=== PATIENT | male | born 1930 | race Caucasian/White ===

== ENCOUNTER → 2016-04-27 | Outpatient (CLI) | payer MEDICARE, BC ==
[2016-04-27 10:17] LABS: Appearance,Urine Clear (Clear); Bilirubin,Urine Negative (Negative); Glucose,Urine (UA) Negative (Negative); Ketones,Urine Negative (Negative); Leukocyte Esterase,Urine Negative (Negative); Nitrite,Urine Negative (Negative); PH, Urine 5.5 (5.0-8.0); Protein,Urine Negative (Negative); Specific Gravity,Urine 1.018 (1.001-1.035); UA Billing (MACRO vs. MICRO) CHEM
== END | disposition home or self-care (01) ==
LOC: LAB 09:11
PROVIDERS: ATTEND Internal Medicine Nephrology
DX: N18.3 Chronic kidney disease, stage 3 (moderate) (principal); Z94.0 Kidney transplant status
CPT/HCPCS: 36415; 80158; 81003

== ENCOUNTER 2016-06-20 09:27 | Emergency (ER) | payer MEDICARE, BC ==
[2016-06-20 09:41] VITALS: BP 118/77; PULSE 81; RESP 18; TEMP 97.5
--- NOTE | 2016-06-20 10:01 | ED ---
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 Patient sees Dr. Vegas and has drained on a regular basis. Patient states he had it drained about a week ago and started to refill. Patient states it's now causing him some discomfort from the swelling. Patient is currently on Coumadin for history of stroke. The patient states that they call Dr. Vegas office haven't really been answered seen in due to the fact is causing some pain and pressure they thought that they should come here. The patient has had no other symptoms. The patient states it is much like it is when it typically fills up. Patient states that he would just like vomiting. Patient denies any recent fever, chills, shortness of breath, chest pain, back pain, abdominal pain, nausea vomiting, numbness or tingling, dysuria or hematuria, constipation or diarrhea, headaches or visual changes, or any other current symptoms. - Related Data Home Medications Medication Instructions Recorded Confirmed Famotidine [Pepcid] 20 mg PO DAILY 12/04/13 01/09/16 Simvastatin [Zocor] 10 mg PO Q48H 12/04/13 01/09/16 Allopurinol [Allopurinol] 100 mg PO HS 12/22/14 01/09/16 Ergocalciferol (Vitamin D2) 50,000 unit PO RODNEY 12/22/14 01/09/16 [Drisdol] Timolol 0.5% Ophth Soln [Timoptic 1 drop BOTH EYES DAILY 12/22/14 01/09/16 0.5% Ophth Soln] Warfarin Sodium [Warfarin Sodium] 5 mg PO DAILY 12/22/14 01/09/16 azaTHIOprine [Imuran] 50 mg PO DAILY 02/26/15 01/09/16 cycloSPORINE, MODIFIED [Neoral] 50 mg PO BID 02/26/15 01/09/16 Diltiazem HCl 60 mg PO HS 03/08/15 01/09/16 Calcitriol [Rocaltrol] 0.25 mcg PO DAILY 01/09/16 01/09/16 Previous Rx's Medication Instructions Recorded ALPRAZolam [Xanax] 0.5 mg PO TID PRN #20 tablet 03/23/15 Allergies Allergy/AdvReac Type Severity Reaction Status Date / Time No Known Allergies Allergy Verified 01/22/16 11:16 Review of Systems ROS Statement: Those systems with pertinent positive or pertinent negative responses have been documented in the HPI. ROS Other: All systems not noted in ROS Statement are negative. 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 PT BLIND LEFT EYE. History of Any Multi-Drug Resistant Organisms: None Reported Past Surgical History: Bowel Resection, Tonsillectomy Additional Past Surgical History / Comment(s): KIDNEY TRANSPLANT-1992, COLONOSCOPY, SEEDS IMPLANTED INTO PROSTATE FOR CANCER, SKIN CA REMOVED FROM BACK AND FACE, CATARACT SURG., COLONOSCOPY. Past Anesthesia/Blood Transfusion Reactions: No Reported Reaction Past Psychological History: No Psychological Hx Reported Smoking Status: Former smoker Past Alcohol Use History: None Reported Additional Past Alcohol Use History / Comment(s): SMOKED APPROX 13 YEARS , LESS THAN 1/2 PPD. Past Drug Use History: None Reported - Past Family History Son(s) Family Medical History: Cancer Additional Family Medical History / Comment(s): 2 SONS , ONE HAD LYMPHOMA, AND ONE HAD MULT. MYELOMA Brother(s) Family Medical History: Cancer General Exam General appearance: alert, in no apparent distress Head exam: Present: atraumatic, normocephalic, normal inspection Eye exam: Present: normal appearance, PERRL, EOMI. Absent: scleral icterus, conjunctival injection, periorbital swelling ENT exam: Present: other (Patient appears to have a cyst to the left side of the neck that is swollen. This is fluctuant to touch.) Neck exam: Present: normal inspection. Absent: tenderness, meningismus, lymphadenopathy Respiratory exam: Present: normal lung sounds bilaterally. Absent: respiratory distress, wheezes, rales, rhonchi, stridor Cardiovascular Exam: Present: regular rate, normal rhythm, normal heart sounds. Absent: systolic murmur, diastolic murmur, rubs, gallop, clicks Neurological exam: Present: alert, oriented X3 Psychiatric exam: Present: normal affect, normal mood Skin exam: Present: warm, dry, intact, normal color. Absent: rash Course Vital Signs 06/20/16 09:36 Temperature 97.5 F L Pulse Rate 81 Respiratory 18 Rate Blood Pressure 118/77 O2 Sat by Pulse 98 Oximetry Procedures - Incision & Drainage Consent Obtained: verbal consent Time Out Performed?: Yes Site: neck Anesthetic Used: lidocaine 1% I&D Cleaning Method: Betadine Sterile Field Used?: Yes Needle Aspiration Performed?: Yes Irrigation Performed?: No I&D Drainage Obtained: Blood Culture Obtained?: No Patient Tolerated Procedure: well Medical Decision Making - Medical Decision Making 85-year-old male presents to emergency room chief complaint of left-sided neck brachial cyst that has refilled. This time patient underwent drainage of the area. We discussed continued follow-up with Dr. Vegas and all the patient's family's questions. They stated they understood and agreement with plan. He will be discharged home. Disposition Clinical Impression: Branchial cleft cyst Disposition: HOME SELF-CARE Condition: Stable Instructions: Ganglion Cysts (ED) Additional Instructions: Please use medication as discussed. Please follow up with family doctor if symptoms have not improved over the next two days. Please return to the emergency room if your symptoms increase or worsen or for any other concerns. Referrals: Rich Banuelos MD [Primary Care Provider] - 1-2 days Mega Camarillo DO [Doctor of Osteopathic Medicine] - 1-2 days Time of Disposition: 10:29
== END 2016-06-20 12:25 | disposition home or self-care (01) ==
LOC: EC 09:27
DX: Q18.0 Sinus, fistula and cyst of branchial cleft (principal); I48.91 Unspecified atrial fibrillation; Z79.01 Long term (current) use of anticoagulants; E78.5 Hyperlipidemia, unspecified; I10 Essential (primary) hypertension; Z85.828 Personal history of other malignant neoplasm of skin; Z85.46 Personal history of malignant neoplasm of prostate; Z87.891 Personal history of nicotine dependence; Z79.899 Other long term (current) drug therapy
CPT/HCPCS: 10060; 10160; 99283

== ENCOUNTER 2016-06-22 07:56 | Emergency (ER) | payer MEDICARE, BC ==
[2016-06-22 08:03] VITALS: RESP 18
--- NOTE | 2016-06-22 09:46 | ED ---
General Adult HPI - General Chief complaint: Skin/Abscess/Foreign Body Stated complaint: LUMP ON NECK Time Seen by Provider: 06/22/16 08:57 Source: patient, RN notes reviewed Mode of arrival: ambulatory Limitations: no limitations - History of Present Illness Initial comments: Patient 85-year-old male who presents emergency room today with a chief complaint of swelling to left side of his neck. Does have a history of a brachial cleft cyst. Has had this drained. Most recently just 2 days ago here in the emergency room. Has been following up with ENT specialist for this but is unable to see him the last 2 days. States swelling has returned. States that office did advise him to emergency room to have it reevaluated. He states he does have swelling to left side of the neck which is consistent with this that is had in the past. States he usually was having it drained once a month over the last 8 months but is been more often and more frequent here lately. He denies any other complaints. Patient denies any recent fever, chills, shortness of breath, chest pain, back pain, abdominal pain, nausea or vomiting, numbness or tingling, dysuria or hematuria, constipation or diarrhea, headaches or visual changes, or any other complaints. - Related Data Home Medications Medication Instructions Recorded Confirmed Famotidine [Pepcid] 20 mg PO DAILY 12/04/13 01/09/16 Simvastatin [Zocor] 10 mg PO Q48H 12/04/13 01/09/16 Allopurinol [Allopurinol] 100 mg PO HS 12/22/14 01/09/16 Ergocalciferol (Vitamin D2) 50,000 unit PO RODNEY 12/22/14 01/09/16 [Drisdol] Timolol 0.5% Ophth Soln [Timoptic 1 drop BOTH EYES DAILY 12/22/14 01/09/16 0.5% Ophth Soln] Warfarin Sodium [Warfarin Sodium] 5 mg PO DAILY 12/22/14 01/09/16 azaTHIOprine [Imuran] 50 mg PO DAILY 02/26/15 01/09/16 cycloSPORINE, MODIFIED [Neoral] 50 mg PO BID 02/26/15 01/09/16 Diltiazem HCl 60 mg PO HS 03/08/15 01/09/16 Calcitriol [Rocaltrol] 0.25 mcg PO DAILY 01/09/16 01/09/16 Previous Rx's Medication Instructions Recorded ALPRAZolam [Xanax] 0.5 mg PO TID PRN #20 tablet 03/23/15 Allergies Allergy/AdvReac Type Severity Reaction Status Date / Time No Known Allergies Allergy Verified 06/22/16 08:04 Review of Systems ROS Statement: Those systems with pertinent positive or pertinent negative responses have been documented in the HPI. ROS Other: All systems not noted in ROS Statement are negative. 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 PT BLIND LEFT EYE. History of Any Multi-Drug Resistant Organisms: None Reported Past Surgical History: Bowel Resection, Tonsillectomy Additional Past Surgical History / Comment(s): KIDNEY TRANSPLANT-1992, COLONOSCOPY, SEEDS IMPLANTED INTO PROSTATE FOR CANCER, SKIN CA REMOVED FROM BACK AND FACE, CATARACT SURG., COLONOSCOPY. Past Anesthesia/Blood Transfusion Reactions: No Reported Reaction Past Psychological History: No Psychological Hx Reported Smoking Status: Former smoker Past Alcohol Use History: None Reported Additional Past Alcohol Use History / Comment(s): SMOKED APPROX 13 YEARS , LESS THAN 1/2 PPD. Past Drug Use History: None Reported - Past Family History Son(s) Family Medical History: Cancer Additional Family Medical History / Comment(s): 2 SONS , ONE HAD LYMPHOMA, AND ONE HAD MULT. MYELOMA Brother(s) Family Medical History: Cancer General Exam - General Exam Comments Initial Comments: General: The patient is awake and alert, in no distress, and does not appear acutely ill. Eye: Pupils are equal, round and reactive to light, extra-ocular movements are intact. No nystagmus. There is normal conjunctiva bilaterally. No signs of icterus. Ears, nose, mouth and throat: There are moist mucous membranes and no oral lesions. Neck: The neck is supple, there is no tenderness or JVD. Cardiovascular: There is a regular rate and rhythm. No murmur, rub or gallop is appreciated. Respiratory: Lungs are clear to auscultation, respirations are non-labored, breath sounds are equal. No wheezes, stridor, rales, or rhonchi. Musculoskeletal: Normal ROM, no tenderness. Strength 5/5. Sensation intact. Pulses equal bilaterally 2+. Neurological: A&O x 3. CN II-XII intact, There are no obvious motor or sensory deficits. Coordination appears grossly intact. Speech is normal. Skin: Skin is warm and dry and no rashes or lesions are noted. Moderate swelling to the left side of the neck. Psychiatric: Cooperative, appropriate mood & affect, normal judgment. Limitations: no limitations Course Vital Signs 06/22/16 08:01 Temperature 97.3 F L Pulse Rate 79 Respiratory 18 Rate Blood Pressure 134/83 O2 Sat by Pulse 97 Oximetry Procedures - Procedures Initial comment: Patient's left side of the neck was prepped and cleaned with Betadine. Area was necessary locally with 1% lidocaine without epinephrine. An 18-gauge needle was used to make aspiration and approximately 80 mL of yellow fluid was removed. Patient tolerated the procedure well. Pressure was held afterwards to hopefully help reduce refilling. Medical Decision Making - Medical Decision Making Case discussed in detail with attending physician Dr. oglesby. Patient's cyst was drained here the emergency room. He is advised to follow-up with ENT in the next 1-2 days. Advised return to emergency room symptoms return or increase or worsen. Disposition Clinical Impression: Branchial cleft cyst Disposition: HOME SELF-CARE Condition: Good Additional Instructions: Please follow-up with ENT specialist Dr. Vegas over the next 1-2 days. Please return here to the emergency room symptoms return or increase or worsen or for any other concerns. Referrals: Rich Banuelos MD [Primary Care Provider] - 1-2 days Time of Disposition: 09:40
[2016-06-22 10:01] VITALS: BP 152/86; PULSE 74; TEMP 98.3
== END 2016-06-22 10:01 | disposition home or self-care (01) ==
LOC: EC 07:56
DX: Q18.0 Sinus, fistula and cyst of branchial cleft (principal); I48.91 Unspecified atrial fibrillation; E78.5 Hyperlipidemia, unspecified; M10.9 Gout, unspecified; I10 Essential (primary) hypertension; Z87.891 Personal history of nicotine dependence; Z79.01 Long term (current) use of anticoagulants; Z79.899 Other long term (current) drug therapy; Z85.828 Personal history of other malignant neoplasm of skin; Z86.73 Personal history of transient ischemic attack (TIA), and cerebral infarction without residual deficits; Z85.46 Personal history of malignant neoplasm of prostate
CPT/HCPCS: 10160; 99283

== ENCOUNTER → 2016-10-24 | Outpatient (CLI) | payer MEDICARE, BC ==
--- NOTE | 2016-10-24 12:15 | CT ---
EXAMINATION TYPE: CT ChestAbdPelvis wo con DATE OF EXAM: 10/24/2016 COMPARISON: NONE HISTORY: Patient has no complaints at time of study. Follow up for known prostate CA. CT DLP: 1458 mGycm. Automated Exposure Control for Dose Reduction was Utilized. TECHNIQUE: CT scan of the thorax, abdomen and pelvis is performed with oral but without IV contrast. FINDINGS: LUNGS: There are some scattered peripheral and basilar atelectatic change and/or scarring. A few scat tered micronodules are present, for reference right lower lobe 4 x 3 mm on axial image 35. There is 2 mm lateral nodule right lower lobe on axial image 31 for reference. No suspicious greater than 6 mm parenchymal nodule or mass is present bilaterally. There is no pleural effusion or pneumothorax seen bilaterally. The tracheobronchial tree is patent. MEDIASTINUM: There are no greater than 1 cm hilar or mediastinal lymph nodes. No pericardial effusi on is seen. There is fairly severe 3 vessel coronary artery calcification which is noted marker for coronary artery disease. Heart size is within normal limits. There is fairly moderate left atrial dil atation however noted. OTHER: Bilateral gynecomastia is noted. LIVER/GB: Liver is somewhat small in size and heterogeneous in appearance. PANCREAS: Some generalized fat replaced atrophy in the pancreatic head and uncinate process is presen t. SPLEEN: Spleen is mildly enlarged at 13.3 cm on axial image 53 ADRENALS: No significant abnormality is seen. KIDNEYS: There is end-stage renal atrophy bilaterally with small size kidneys and marked cortical thi nning. There are scattered hypodense and hyperdense lesions felt to reflect simple and proteinaceous cysts bilaterally. There is right pelvic transplant without hydronephrosis and improved cortical prom inence. BOWEL: The oral contrast reaches level of the hepatic flexure. There is no suspicious small or large bowel dilatation. There are sutures from prior partial colectomy in the left mid to lower abdomen. Th ere is diverticulosis involving distal transverse as well as left and sigmoid colon without CT eviden ce for acute diverticulitis. GENITAL ORGANS: Numerous brachytherapy seeds are seen in normal size prostate gland. No suspicious ad jacent adenopathy is clearly seen. Some scattered pelvic phleboliths are noted. LYMPH NODES: No greater than 1cm abdominal or pelvic lymph nodes are appreciated. OSSEOUS STRUCTURES: There is multilevel spurring in the thoracolumbar spine. There is facet arthropat hy in lower lumbar levels. There is some narrowing and sclerosis in both sacroiliac joints, right gre ater than left. There is moderate joint space loss in both hip joints. Underlying S-shaped scoliosis is present in the thoracolumbar spine. There are numerous sclerotic foci scattered throughout the osseous structures including pelvis bilate rally and sacrum. There is involvement of the thoracolumbar spine at multiple levels, for reference L 3 lesion on sagittal image 69 and T9 lesion as well as T3 lesion on sagittal image 71. There is right anterior rib lesion on sagittal image 102 OTHER: There is moderate calcified atherosclerotic change of aorta extending into branch vessels. IMPRESSION: 1. Diffuse osseous metastatic disease is present. No additional convincing evidence of metastatic dis ease. 2. Partial colectomy changes with residual mid to distal diverticulosis. 3. Severe coronary artery calcification, clinical correlation for additional cardiac risk factors adv ised to determine need for follow-up. 4. Small sized heterogeneous slightly lobulated liver with mild splenomegaly raises concern for under lying cirrhosis, clinical correlation advised.
--- NOTE | 2016-10-24 14:37 | NM ---
EXAMINATION TYPE: NM bone scan whole body DATE OF EXAM: 10/24/2016 COMPARISON: CT cap earlier today HISTORY: Prostate cancer Delayed whole-body scanning was performed following the injection of 25.9 mCi Tc 99m MDP. Images acq uired 3 hours post injection. Whole body images in anterior posterior projection as well as spot imag es of the thorax abdomen and pelvis multiple projections are obtained FINDINGS: Areas of radiotracer uptake to correspond to the sclerotic foci on CT are not as well seen but felt p resent particularly in the mid to lower thoracic spine. Some involvement right pelvis is identified w hich corresponds to sclerotic lesions at this level. Findings are actually better seen on recent CT v ersus bone scan. Mild increased uptake bilateral knee joints is felt to reflect product of degenerative change. IMPRESSION: Scintigraphic confirmation of metastatic disease to the bone though subtle is present.
== END | disposition home or self-care (01) ==
LOC: RADNMMAIN 09:38
PROVIDERS: ATTEND Urology
DX: C79.51 Secondary malignant neoplasm of bone (principal); C61 Malignant neoplasm of prostate; R16.1 Splenomegaly, not elsewhere classified; K57.30 Diverticulosis of large intestine without perforation or abscess without bleeding
CPT/HCPCS: 71250; 74176; 78306; A9503

== ENCOUNTER → 2017-02-02 | Outpatient (CLI) | payer MEDICARE, BC ==
--- NOTE | 2017-02-02 12:04 | XR ---
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 There are degenerative changes at the AC joint. No focal sclerosis or oste olysis. IMPRESSION: Degenerative changes at the AC joint. No suspicious radiographic changes to the humerus at this time.
== END | disposition home or self-care (01) ==
LOC: RADXRMAIN 10:37
PROVIDERS: ATTEND Internal Medicine Hematology & Oncology
DX: C61 Malignant neoplasm of prostate (principal); C79.51 Secondary malignant neoplasm of bone; F03.90 Unspecified dementia, unspecified severity, without behavioral disturbance, psychotic disturbance, mood disturbance, and anxiety; Z71.3 Dietary counseling and surveillance; Z94.0 Kidney transplant status

== ENCOUNTER 2017-03-07 14:12 | Inpatient (IN) | payer MEDICARE, BC ==
[2017-03-07] MEDS ORDERED: RX INFO: IV CONTRAST WAS GIVEN 1 EACH MISC MISCELLANE PRN (14:32)
[2017-03-07] MEDS ORDERED: SODIUM CHLORIDE 0.9% 1,000 ML IV STA (14:32)
[2017-03-07] MEDS ORDERED: SODIUM CHLORIDE 0.9% 500 ML IV STA (14:32)
--- NOTE | 2017-03-07 14:42 | ED ---
General Adult HPI - General Chief complaint: Altered Mental Status Stated complaint: Altered mental status Time Seen by Provider: 03/07/17 14:25 Source: family, EMS, RN notes reviewed, old records reviewed Mode of arrival: EMS Limitations: altered mental status, physical limitation - History of Present Illness Initial comments: This is an 86-year-old male the ER for evaluation of altered mental state. Patient presents for expressive aphasia, difficulty with talking, episode of shaking and tremor. Patient does have medical history significant for atrial fibrillation is on warfarin anticoagulation. Patient and family deny recent fever no nausea vomiting diarrhea. Patient has and denies any rash or headache. states patient came in about an hour prior to arrival from lunch and patient began to have some weakness and then difficulty with his speech. Patient nonsensical. Patient does have underlying history of dementia - Related Data Home Medications Medication Instructions Recorded Confirmed Ergocalciferol (Vitamin D2) 50,000 unit PO Q30D 12/22/14 03/07/17 [Drisdol] Timolol 0.5% Ophth Soln [Timoptic 1 drop BOTH EYES DAILY 12/22/14 03/07/17 0.5% Ophth Soln] Warfarin Sodium [Warfarin Sodium] 5 mg PO MOWEFR 12/22/14 03/07/17 azaTHIOprine [Imuran] 50 mg PO DAILY 02/26/15 03/07/17 cycloSPORINE, MODIFIED [Neoral] 50 mg PO BID 02/26/15 03/07/17 Diltiazem HCl 60 mg PO HS 03/08/15 03/07/17 Calcitriol [Rocaltrol] 0.25 mcg PO DAILY 01/09/16 03/07/17 Simvastatin [Zocor] 2.5 mg PO Q72H 06/22/16 03/07/17 Warfarin [Coumadin] 2.5 mg PO SUTUTHSA 06/22/16 03/07/17 Donepezil [Aricept] 10 mg PO HS 03/07/17 03/07/17 Famotidine [Pepcid] 20 mg PO DAILY 03/07/17 03/07/17 Allergies Allergy/AdvReac Type Severity Reaction Status Date / Time No Known Allergies Allergy Verified 03/07/17 14:35 Review of Systems ROS Statement: Those systems with pertinent positive or pertinent negative responses have been documented in the HPI. ROS Other: All systems not noted in ROS Statement are negative. 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 PT BLIND LEFT EYE. History of Any Multi-Drug Resistant Organisms: None Reported Past Surgical History: Bowel Resection, Tonsillectomy Additional Past Surgical History / Comment(s): KIDNEY TRANSPLANT-1992, COLONOSCOPY, SEEDS IMPLANTED INTO PROSTATE FOR CANCER, SKIN CA REMOVED FROM BACK AND FACE, CATARACT SURG., COLONOSCOPY. Past Anesthesia/Blood Transfusion Reactions: No Reported Reaction Past Psychological History: No Psychological Hx Reported Smoking Status: Former smoker Past Alcohol Use History: None Reported Past Drug Use History: None Reported - Past Family History Son(s) Family Medical History: Cancer Additional Family Medical History / Comment(s): 2 SONS , ONE HAD LYMPHOMA, AND ONE HAD MULT. MYELOMA Brother(s) Family Medical History: Cancer General Exam - General Exam Comments Initial Comments: Patient with expressive aphasia on exam, Limitations: altered mental status, physical limitation General appearance: alert, in no apparent distress Head exam: Present: atraumatic, normocephalic, normal inspection Eye exam: Present: normal appearance, PERRL, EOMI. Absent: scleral icterus, conjunctival injection, periorbital swelling ENT exam: Present: normal exam, mucous membranes moist Neck exam: Present: normal inspection. Absent: tenderness, meningismus, lymphadenopathy Respiratory exam: Present: normal lung sounds bilaterally. Absent: respiratory distress, wheezes, rales, rhonchi, stridor Cardiovascular Exam: Present: tachycardia, irregular rhythm, normal heart sounds. Absent: systolic murmur, diastolic murmur, rubs, gallop, clicks GI/Abdominal exam: Present: soft, normal bowel sounds. Absent: distended, tenderness, guarding, rebound, rigid Extremities exam: Present: normal inspection, full ROM, normal capillary refill. Absent: tenderness, pedal edema, joint swelling, calf tenderness Back exam: Present: normal inspection Neurological exam: Present: alert, oriented X3, CN II-XII intact Psychiatric exam: Present: normal affect, normal mood Skin exam: Present: warm, dry, intact, normal color. Absent: rash Course Vital Signs 03/07/17 03/07/17 03/07/17 14:12 14:30 14:45 Temperature 98.8 F Pulse Rate 112 H 95 106 H Respiratory 28 H 18 18 Rate Blood Pressure 174/99 151/75 148/89 O2 Sat by Pulse 100 99 100 Oximetry 03/07/17 03/07/17 03/07/17 15:00 15:16 15:35 Temperature 101.4 F H Pulse Rate 102 H 97 Respiratory 18 16 Rate Blood Pressure 156/93 159/76 O2 Sat by Pulse 100 99 Oximetry 03/07/17 16:54 Temperature 101.0 F H Pulse Rate 93 Respiratory 16 Rate Blood Pressure 144/82 O2 Sat by Pulse 100 Oximetry - Reevaluation(s) Reevaluation #1: 03/07/17 17:48 Patient did have choking episode with attempt to swallow Tylenol Reevaluation #2: 03/07/17 17:48 Patient's symptoms significantly resolved with IV hydration, fever control, no acute symptoms of stroke EKG Findings - EKG Comments: EKG Findings:: EKG shows A. fib with RVR rate 104, QRS 84, QTC 410 Medical Decision Making - Medical Decision Making 86 male the ER for evaluation regards altered mental status, initially severely dehydrated on exam with fever. Patient feeling much better with fever control and IV hydration. Patient does have CT brain but currently no acute symptoms of stroke. TIA, patient to be admitted for neurological evaluation. Patient was also given pelvis while here in the emergency room, patient did choke on pill, likely esophageal stricture, patient is scheduled for GI evaluation - Lab Data Result diagrams: 03/07/17 14:45 03/07/17 14:45 Lab Results 03/07/17 03/07/17 03/07/17 Range/Units 14:45 14:45 14:45 WBC 6.9 (3.8-10.6) k/uL RBC 4.14 L (4.30-5.90) m/uL Hgb 12.7 L (13.0-17.5) gm/dL Hct 39.4 (39.0-53.0) % MCV 95.1 (80.0-100.0) fL MCH 30.7 (25.0-35.0) pg MCHC 32.3 (31.0-37.0) g/dL RDW 13.4 (11.5-15.5) % Plt Count 462 H (150-450) k/uL Neutrophils % 74 % Lymphocytes % 14 % Monocytes % 9 % Eosinophils % 0 % Basophils % 0 % Neutrophils # 5.1 (1.3-7.7) k/uL Lymphocytes # 1.0 (1.0-4.8) k/uL Monocytes # 0.6 (0-1.0) k/uL Eosinophils # 0.0 (0-0.7) k/uL Basophils # 0.0 (0-0.2) k/uL PT (9.0-12.0) sec INR (<1.2) APTT (22.0-30.0) sec Sodium 141 (137-145) mmol/L Potassium 5.3 H (3.5-5.1) mmol/L Chloride 110 H (98-107) mmol/L Carbon Dioxide 23 (22-30) mmol/L Anion Gap 8 mmol/L BUN 27 H (9-20) mg/dL Creatinine 1.20 (0.66-1.25) mg/dL Est GFR (MDRD) Af Amer >60 (>60 ml/min/1.73 sqM) Est GFR (MDRD) Non-Af 58 (>60 ml/min/1.73 sqM) Glucose 140 H (74-99) mg/dL POC Glucose (mg/dL) (75-99) mg/dL POC Glu Cmo & President ID Plasma Lactic Acid Vamsi (0.7-2.0) mmol/L Calcium 10.1 (8.4-10.2) mg/dL Phosphorus (2.5-4.5) mg/dL Magnesium (1.6-2.3) mg/dL Total Bilirubin 1.6 H (0.2-1.3) mg/dL AST 37 (17-59) U/L ALT 23 (21-72) U/L Alkaline Phosphatase 163 H (38-126) U/L Ammonia (<30) umol/L Total Creatine Kinase 26 L (55-170) U/L CK-MB (CK-2) <0.2 (0.0-2.4) ng/mL CK-MB (CK-2) Rel Index Troponin I <0.012 (0.000-0.034) ng/mL Total Protein 6.3 (6.3-8.2) g/dL Albumin 2.8 L (3.5-5.0) g/dL Urine Color Urine Appearance (Clear) Urine pH (5.0-8.0) Ur Specific [place] (1.001-1.035) Urine Protein (Negative) Urine Glucose (UA) (Negative) Urine Ketones (Negative) Urine Blood (Negative) Urine Nitrite (Negative) Urine Bilirubin (Negative) Urine Urobilinogen (<2.0) mg/dL Ur Leukocyte Esterase (Negative) Influenza Type A RNA (Not Detectd) Influenza Type B (PCR) (Not Detectd) 03/07/17 03/07/17 03/07/17 Range/Units 14:45 14:59 14:59 WBC (3.8-10.6) k/uL RBC (4.30-5.90) m/uL Hgb (13.0-17.5) gm/dL Hct (39.0-53.0) % MCV (80.0-100.0) fL MCH (25.0-35.0) pg MCHC (31.0-37.0) g/dL RDW (11.5-15.5) % Plt Count (150-450) k/uL Neutrophils % % Lymphocytes % % Monocytes % % Eosinophils % % Basophils % % Neutrophils # (1.3-7.7) k/uL Lymphocytes # (1.0-4.8) k/uL Monocytes # (0-1.0) k/uL Eosinophils # (0-0.7) k/uL Basophils # (0-0.2) k/uL PT 41.7 H (9.0-12.0) sec INR 4.6 H (<1.2) APTT 48.4 H (22.0-30.0) sec Sodium (137-145) mmol/L Potassium (3.5-5.1) mmol/L Chloride (98-107) mmol/L Carbon Dioxide (22-30) mmol/L Anion Gap mmol/L BUN (9-20) mg/dL Creatinine (0.66-1.25) mg/dL Est GFR (MDRD) Af Amer (>60 ml/min/1.73 sqM) Est GFR (MDRD) Non-Af (>60 ml/min/1.73 sqM) Glucose (74-99) mg/dL POC Glucose (mg/dL) (75-99) mg/dL POC Glu Cmo & President ID Plasma Lactic Acid Vamsi 2.4 H* (0.7-2.0) mmol/L Calcium (8.4-10.2) mg/dL Phosphorus 1.2 L* (2.5-4.5) mg/dL Magnesium 2.0 (1.6-2.3) mg/dL Total Bilirubin (0.2-1.3) mg/dL AST (17-59) U/L ALT (21-72) U/L Alkaline Phosphatase (38-126) U/L Ammonia <9 (<30) umol/L Total Creatine Kinase (55-170) U/L CK-MB (CK-2) (0.0-2.4) ng/mL CK-MB (CK-2) Rel Index Troponin I (0.000-0.034) ng/mL Total Protein (6.3-8.2) g/dL Albumin (3.5-5.0) g/dL Urine Color Urine Appearance (Clear) Urine pH (5.0-8.0) Ur Specific [place] (1.001-1.035) Urine Protein (Negative) Urine Glucose (UA) (Negative) Urine Ketones (Negative) Urine Blood (Negative) Urine Nitrite (Negative) Urine Bilirubin (Negative) Urine Urobilinogen (<2.0) mg/dL Ur Leukocyte Esterase (Negative) Influenza Type A RNA (Not Detectd) Influenza Type B (PCR) (Not Detectd) 03/07/17 03/07/17 03/07/17 Range/Units 15:01 15:35 15:35 WBC (3.8-10.6) k/uL RBC (4.30-5.90) m/uL Hgb (13.0-17.5) gm/dL Hct (39.0-53.0) % MCV (80.0-100.0) fL MCH (25.0-35.0) pg MCHC (31.0-37.0) g/dL RDW (11.5-15.5) % Plt Count (150-450) k/uL Neutrophils % % Lymphocytes % % Monocytes % % Eosinophils % % Basophils % % Neutrophils # (1.3-7.7) k/uL Lymphocytes # (1.0-4.8) k/uL Monocytes # (0-1.0) k/uL Eosinophils # (0-0.7) k/uL Basophils # (0-0.2) k/uL PT (9.0-12.0) sec INR (<1.2) APTT (22.0-30.0) sec Sodium (137-145) mmol/L Potassium (3.5-5.1) mmol/L Chloride (98-107) mmol/L Carbon Dioxide (22-30) mmol/L Anion Gap mmol/L BUN (9-20) mg/dL Creatinine (0.66-1.25) mg/dL Est GFR (MDRD) Af Amer (>60 ml/min/1.73 sqM) Est GFR (MDRD) Non-Af (>60 ml/min/1.73 sqM) Glucose (74-99) mg/dL POC Glucose (mg/dL) 128 H (75-99) mg/dL POC Glu Cmo & President ID Yg Smith Plasma Lactic Acid Vamsi (0.7-2.0) mmol/L Calcium (8.4-10.2) mg/dL Phosphorus (2.5-4.5) mg/dL Magnesium (1.6-2.3) mg/dL Total Bilirubin (0.2-1.3) mg/dL AST (17-59) U/L ALT (21-72) U/L Alkaline Phosphatase (38-126) U/L Ammonia (<30) umol/L Total Creatine Kinase (55-170) U/L CK-MB (CK-2) (0.0-2.4) ng/mL CK-MB (CK-2) Rel Index Troponin I (0.000-0.034) ng/mL Total Protein (6.3-8.2) g/dL Albumin (3.5-5.0) g/dL Urine Color Yellow Urine Appearance Clear (Clear) Urine pH 7.0 (5.0-8.0) Ur Specific [place] 1.027 (1.001-1.035) Urine Protein Trace H (Negative) Urine Glucose (UA) Negative (Negative) Urine Ketones Negative (Negative) Urine Blood Negative (Negative) Urine Nitrite Negative (Negative) Urine Bilirubin Negative (Negative) Urine Urobilinogen >12.0 (<2.0) mg/dL Ur Leukocyte Esterase Negative (Negative) Influenza Type A RNA Not Detected (Not Detectd) Influenza Type B (PCR) Not Detected (Not Detectd) - Radiology Data Radiology results: report reviewed (CT CT brain does show old right MCV CVA. Patient also has chest x-ray which is negative for acute disease), image reviewed Disposition Clinical Impression: CVA (cerebral infarction), Altered mental status, Fever Disposition: ADMITTED IP TO THIS HOSP Condition: Fair Instructions: Altered Mental Status (ED) Referrals: Rich Banuelos MD [Primary Care Provider] - 1-2 days
[2017-03-07 14:54] LABS: Basophils % (A) 0 %; Eosinophils % (A) 0 %; HCT 39.4 % (39.0-53.0); HGB 12.7 gm/dL (13.0-17.5); Lymphocytes % (A) 14 %; MCH 30.7 pg (25.0-35.0); MCHC 32.3 g/dL (31.0-37.0); MCV 95.1 fL (80.0-100.0); Mean Platelet Volume 7.5; Monocytes # (A) 0.6 k/uL (0-1.0); Monocytes % (A) 9 %; Neutrophils # (A) 5.1 k/uL (1.3-7.7); Neutrophils % (A) 74 %; Platelet Count 462 k/uL (150-450); RBC 4.14 m/uL (4.30-5.90); RDW 13.4 % (11.5-15.5); WBC 6.9 k/uL (3.8-10.6)
[2017-03-07 15:02] LABS: INR 4.6 (<1.2); Partial Thromboplastin Time 48.4 sec (22.0-30.0); Prothrombin Time 41.7 sec (9.0-12.0)
[2017-03-07 15:04] LABS: Glucose,Whole Blood 128 mg/dL (75-99)
--- NOTE | 2017-03-07 15:10 | CT ---
EXAMINATION TYPE: CT brain wo con DATE OF EXAM: 03/07/2017 COMPARISON: CT brain of 2013. HISTORY: Altered mental status. CT DLP: 1045.1 mGycm Automated exposure control for dose reduction was used. TECHNIQUE: CT scan of the head is performed without contrast. FINDINGS: There is new hypoattenuation of the left frontal lobe in comparison to the prior with blur ring of the benoit-white junction, however this is of relatively low attenuation appearing at least sub acute, possibly chronic. Additionally there is widening of the adjacent sulci without mass effect rem ote chronic infarct of the left inferior cerebral hemisphere is unchanged from the prior of 2013. No suspicious extra-axial fluid collection is seen. Old lacunar injury of the anterior limb of the right internal capsule is present. Additional lacunar injury of the right external capsule is also seen. N o blurring of the insular cortex. No hyperdense MCA sign. There is no acute intracranial hemorrhage or midline shift identified. There is diffuse ventricular a nd sulcal prominence consistent with diffuse age-related cerebral atrophy. There is low-attenuation in the periventricular white matter consistent with chronic small vessel ischemic change. The globes are intact. Scant mucosal thickening is seen within the ethmoid sinuses. Remaining visualized parana bakari sinuses are well aerated. IMPRESSION: 1. No acute intracranial hemorrhage or midline shift. 2. Wedge-shaped area of hypoattenuation within the left frontal lobe with volume loss suggests subacu te to chronic ischemia within a branch vessel of the left MCA. 3. Old left cerebellar hemisphere infarct with encephalomalacia. 4. Multiple old lacunar injuries. 5. Diffuse age-related cerebral atrophy and chronic small vessel ischemic change.
[2017-03-07 15:11] LABS: ALT 23 U/L (21-72); AST 37 U/L (17-59); Albumin 2.8 g/dL (3.5-5.0); Alkaline Phosphatase 163 U/L (38-126); Anion Gap 8 mmol/L; Blood Urea Nitrogen 27 mg/dL (9-20); Calcium 10.1 mg/dL (8.4-10.2); Carbon Dioxide 23 mmol/L (22-30); Chloride 110 mmol/L (98-107); Glucose 140 mg/dL (74-99); Potassium 5.3 mmol/L (3.5-5.1); Sodium 141 mmol/L (137-145); Total Bilirubin 1.6 mg/dL (0.2-1.3); Total Protein 6.3 g/dL (6.3-8.2)
[2017-03-07 15:12] LABS: Ammonia <9 umol/L (<30)
[2017-03-07 15:17] LABS: Creatine Kinase 26 U/L (55-170)
[2017-03-07 15:21] LABS: Phosphorus 1.2 mg/dL (2.5-4.5)
[2017-03-07 15:22] LABS: Lactic Acid, Venous 2.4 mmol/L (0.7-2.0)
[2017-03-07] MEDS ORDERED: LIDOCAINE URO-JET JELLY 2% 5 ML KIT URETHRAL ONE (15:23)
[2017-03-07 15:29] LABS: Creatine Kinase MB <0.2 ng/mL (0.0-2.4); Troponin I <0.012 ng/mL (0.000-0.034)
--- NOTE | 2017-03-07 15:38 | CT ---
EXAMINATION TYPE: CT angio head neck DATE OF EXAM: 03/07/2017 HISTORY: Altered mental status. COMPARISON: NONE CT DLP: 1349.3 mGycm. Automated Exposure Control for Dose Reduction was Utilized. TECHNIQUE: CTA scan of the neck is performed with IV Contrast, patient injected with 65ml mL of Visi paque 320 and 50 mL of saline, axial images are obtained, coronal and sagittal reformatted images are reviewed. Three-D reconstructed images are created on an independent workstation and reviewed. FINDINGS: The exam is suboptimal due to patient motion Carotid/Vascular Structures: There is approximately 50% stenosis at the carotid bulb on the right wit h short segment area near complete occlusion of the right internal carotid artery extending over a le ngth of approximately 4 mm with reconstitution distally. This is seen on axial series 9 image 43, cor onal series 10 image 12, and sagittal series 11 image 14. Nonhemodynamically significant calcific ath eromatous plaquing is seen of the left carotid bulb. There is a medial course of both internal caroti d arteries located posterior to the oropharynx. Calcific atheromatous plaquing is seen of the internal carotid arteries in their cavernous and suprac linoid portions. This appears nonhemodynamically significant with less than 50% stenosis, however cindy ges are degraded by motion artifact. The right vertebral artery is diminutive just proximal to the confluence with the left vertebral reji ry to form the basilar artery. [place] appears intact. No gross evidence of aneurysmal outpo uching or dissection. Other: There is a densely sclerotic 1.2 cm vertebral body lesion of T3 with numerous other punctate s clerotic foci of T2 and T4. Other sclerotic foci are seen within the sternal manubrium. Visualized po rtions of the brain are discussed in the CT brain dictation of the same date. IMPRESSION: Exam is limited secondary to uncontrollable patient motion. 1. 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 Approximately 50% stenosis is seen within the right carotid bulb. 2. Nonhemodynamically significant calcific atheromatous plaquing within the left carotid bulb, bilate ral cavernous portions of the internal carotid arteries, and bilateral supraclinoid portions of the i nternal carotid arteries. 3. 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 Bone scan could be perform ed for further evaluation.
[2017-03-07] MEDS: ACETAMINOPHEN TAB 500 MG TAB PO STA ×2 (15:47→16:07)
[2017-03-07 15:51] LABS: Appearance,Urine Clear (Clear); Bilirubin,Urine Negative (Negative); Blood,Urine Negative (Negative); Color,Urine Yellow; Glucose,Urine (UA) Negative (Negative); Ketones,Urine Negative (Negative); Leukocyte Esterase,Urine Negative (Negative); Nitrite,Urine Negative (Negative); Protein,Urine Trace (Negative); Specific Gravity,Urine 1.027 (1.001-1.035); Urobilinogen,Urine >12.0 mg/dL (<2.0)
[2017-03-07] MEDS ORDERED: ONDANSETRON 4 MG/2 ML VIAL IVP STA (15:54)
[2017-03-07] MEDS ORDERED: ACETAMINOPHEN IV (For NPO) 500 MG in EMPTY BAG 1 BAG IVPB STA (15:58)
--- NOTE | 2017-03-07 17:23 | XR ---
EXAMINATION TYPE: XR chest 2V DATE OF EXAM: 03/07/2017 COMPARISON: Prior chest x-ray 03/23/2015 HISTORY: Difficulty breathing and metastatic disease TECHNIQUE: Frontal and lateral views of the chest are obtained. FINDINGS: There is no focal air space opacity, pleural effusion, or pneumothorax seen. The cardiac silhouette size is stable, patient is rotated. Interstitium is increased. The osseous structures sh ows low bone mineral, areas of sclerotic density suggests known metastatic disease. IMPRESSION: No acute cardiopulmonary process. Interstitial lung disease. Metastatic disease.
[2017-03-07] MEDS ORDERED: PIPERACILLIN-TAZOBACTAM 3.375 GM in DEXTROSE/WATER 1 50ML.BAG IVPB STA (17:45)
[2017-03-07] MEDS ORDERED: IPRATROPIUM-ALBUTEROL 3 ML NEB INHALATION PRN (17:45)
[2017-03-07] MEDS ORDERED: hydrALAZINE HCL 20 MG/ML 1 ML VIAL IVP PRN (21:04)
[2017-03-07] MEDS ORDERED: LORazepam 2 MG/ML INJ IV PRN (21:05)
[2017-03-07] MEDS: PIPERACILLIN-TAZOBACTAM 3.375 GM in DEXTROSE/WATER 1 50ML.BAG IVPB SCH (23:56)
[2017-03-08 05:35] LABS: Hypochromasia Slight; MCV 96.9 fL (80.0-100.0)
[2017-03-08 05:37] LABS: VBG PH 7.33 (7.31-7.41)
[2017-03-08 05:47] LABS: Anion Gap 6 mmol/L; Blood Urea Nitrogen 22 mg/dL (9-20); Calcium 8.8 mg/dL (8.4-10.2); Carbon Dioxide 24 mmol/L (22-30); Chloride 112 mmol/L (98-107); Glucose 93 mg/dL (74-99); Sodium 142 mmol/L (137-145)
[2017-03-08 05:58] LABS: HCT 34.8 % (39.0-53.0); HGB 10.9 gm/dL (13.0-17.5); MCH 30.4 pg (25.0-35.0); MCHC 31.4 g/dL (31.0-37.0); Mean Platelet Volume 7.3; Platelet Count 375 k/uL (150-450); RBC 3.59 m/uL (4.30-5.90); RDW 13.6 % (11.5-15.5); WBC 5.9 k/uL (3.8-10.6)
[2017-03-08 06:27] LABS: Band Neutrophils % 1 %; Eosinophils # (M) 0.06 k/uL (0-0.7); Lymphocytes # (M) 0.53 k/uL (1.0-4.8); Monocytes # (M) 0.53 k/uL (0-1.0); Neutrophils % (M) 80 %; Nucleated Red Blood Cells 0 /100 WBC (0-0); Total Cells Counted 100
[2017-03-08 06:29] LABS: Large Platelets Present
[2017-03-08] MEDS: PIPERACILLIN-TAZOBACTAM 3.375 GM in DEXTROSE/WATER 1 50ML.BAG IVPB SCH ×2 (08:05→16:20)
--- NOTE | 2017-03-08 09:07 | P.CNNES ---
History of Present Illness Consult date: 03/08/17 Reason for Consult: Patient admitted with altered mental status and speech changes. History of Present Illness: This patient is a 86-year-old right-handed white male who was brought into the emergency room yesterday for evaluation of altered mental status and increased confusion. According to the ER note she was noted by his is having increase trouble with his speech. She apparently noticed that he was having difficulty getting his words out. He has a known history of review of stroke in the past and the patient has been treated for this. He also has a history of chronic atrial fibrillation for which he is taking Coumadin on a regular basis. Apparently yesterday right after lunch he was noted to have the difficulty with his speech. He had some generalized weakness. He apparently does have history of underlying dementia as well and is taking Aricept on a regular basis. Patient was brought into the emergency room yesterday for further evaluation. He was seen in the ER by Dr. Gonzalez. He was sent for a computed tomography scan of the brain and his CTA angiogram. His NIH stroke scale in the ER was noted to be 1.0. Laboratory testing revealed the patient to have a coagulopathy as his INR was elevated at 4.6. His computed tomography scan of the brain revealed no acute intracranial hemorrhage or midline shift. There is a wedge-shaped area of hypoattenuation in the left frontal lobe suggesting subacute to chronic ischemia. There was evidence of an old left cerebellar infarct. There was some degree of encephalomalacia as well. Patient also underwent a CTA angiogram. The study revealed evidence of occlusion of the right internal carotid artery spanning 4 mm distal to the carotid bifurcation on the right. There was also mention of a sclerotic foci in the upper thoracic spine at T3 level suggesting possibility of osteoblastic metastasis. Bone scan was recommended. The patient is a poor historian. He was able to answer questions this morning fairly well. His speech appears to be clear with no evidence of expressive aphasia. As noted the results of his CT scan of the brain and CT angiogram were reviewed today. We are recommending vascular surgery consultation for further assessment of his CTA angiogram. His evaluation in the emergency room yesterday did not indicate any treatment with TPA as his NIH score was 1.0 and his INR was elevated at 4.6. He was admitted to hospital for a complete stroke evaluation. Patient denies any specific headache symptoms at this time. He denies any focal weakness. He is able to answer all questions appropriately and endurance noted his speech does appear to be clear. No evidence of any aphasia. He was tested for influenza A and B and these were both negative. We have recommended patient to undergo MRI of the brain for further evaluation for acute stroke. As noted we will await any further recommendations from vascular surgery. He may also need a bone scan as noted with sclerotic changes noted at T3 vertebral body. At this time we will continue complete stroke evaluation for the patient. His overall prognosis at this time remains guarded. His INR is still pending this morning but is currently on hold due to the elevated INR yesterday of 4.6. We will continue close monitoring of his condition during this admission. His overall prognosis at this time remains very guarded. Review of Systems Constitutional: Denies chills, Denies fever Eyes: denies blurred vision, denies pain Ears, nose, mouth and throat: Denies headache, Denies sore throat Cardiovascular: Denies chest pain, Denies shortness of breath Respiratory: Denies cough Gastrointestinal: Denies abdominal pain, Denies diarrhea, Denies nausea, Denies vomiting Musculoskeletal: Denies myalgias Integumentary: Denies pruritus, Denies rash Neurological: Reports change in speech, Reports confusion, Reports memory loss, Reports tremors, Denies numbness, Denies weakness Psychiatric: Reports anxiety, Reports difficulty concentrating, Reports memory loss Endocrine: Denies fatigue, Denies weight change Past Medical History Past Medical History: Atrial Fibrillation, Cancer, CVA/TIA, Eye Disorder, Hyperlipidemia, Hypertension, Memory Impairment, Prostate Disorder, Renal Disease Additional Past Medical History / Comment(s): KIDNEY TRANSPLANT(1992), HX OF TIA X2 AND CVA (11/2014) WITH SOME APHASIA,, HX OF BLOOD IN THE STOOL, SKIN CA , PROSTATE CA., GOUT. PT BLIND LEFT EYE. History of Any Multi-Drug Resistant Organisms: None Reported Past Surgical History: Bowel Resection, Tonsillectomy Additional Past Surgical History / Comment(s): KIDNEY TRANSPLANT-1992, COLONOSCOPY, SEEDS IMPLANTED INTO PROSTATE FOR CANCER, SKIN CA REMOVED FROM BACK AND FACE, CATARACT SURG., COLONOSCOPY. Past Anesthesia/Blood Transfusion Reactions: No Reported Reaction Past Psychological History: No Psychological Hx Reported Smoking Status: Former smoker Past Alcohol Use History: None Reported Additional Past Alcohol Use History / Comment(s): SMOKED APPROX 13 YEARS , LESS THAN 1/2 PPD. Past Drug Use History: None Reported - Past Family History Son(s) Family Medical History: Cancer Additional Family Medical History / Comment(s): 2 SONS , ONE HAD LYMPHOMA, AND ONE HAD MULT. MYELOMA Brother(s) Family Medical History: Cancer Medications and Allergies Home Medications Medication Instructions Recorded Confirmed Type Ergocalciferol (Vitamin D2) 50,000 unit PO Q30D 12/22/14 03/07/17 History [Drisdol] Timolol 0.5% Ophth Soln [Timoptic 1 drop BOTH EYES DAILY 12/22/14 03/07/17 History 0.5% Ophth Soln] Warfarin Sodium [Warfarin Sodium] 5 mg PO MOWEFR 12/22/14 03/07/17 History azaTHIOprine [Imuran] 50 mg PO DAILY 02/26/15 03/07/17 History cycloSPORINE, MODIFIED [Neoral] 50 mg PO BID 02/26/15 03/07/17 History Diltiazem HCl 60 mg PO HS 03/08/15 03/07/17 History Calcitriol [Rocaltrol] 0.25 mcg PO DAILY 01/09/16 03/07/17 History Simvastatin [Zocor] 2.5 mg PO Q72H 06/22/16 03/07/17 History Warfarin [Coumadin] 2.5 mg PO SUTUTHSA 06/22/16 03/07/17 History Donepezil [Aricept] 10 mg PO HS 03/07/17 03/07/17 History Famotidine [Pepcid] 20 mg PO DAILY 03/07/17 03/07/17 History Allergies Allergy/AdvReac Type Severity Reaction Status Date / Time No Known Allergies Allergy Verified 03/07/17 14:35 Physical Examination - Vital Signs Vital Signs: Vital Signs Temp Pulse Pulse Resp BP BP Pulse Ox 03/08/17 04:00 97.4 F L 67 18 103/58 96 03/08/17 00:43 98.4 F 78 18 128/79 98 03/07/17 22:18 98 F 86 17 121/80 100 03/07/17 20:06 98.2 F 91 18 133/71 100 03/07/17 19:54 98.5 F 86 18 121/80 100 03/07/17 18:56 89 18 121/89 98 03/07/17 18:07 99.7 F H 93 18 138/80 98 03/07/17 16:54 101.0 F H 93 16 144/82 100 03/07/17 15:35 101.4 F H 03/07/17 15:16 97 16 159/76 99 03/07/17 15:00 102 H 18 156/93 100 03/07/17 14:45 106 H 18 148/89 100 03/07/17 14:30 95 18 151/75 99 03/07/17 14:12 98.8 F 112 H 28 H 174/99 100 Intake and Output 03/07/17 03/08/17 03/08/17 22:59 06:59 14:59 Output Total 300 100 Balance -300 -100 Output: Urine 300 100 Other: Voiding Method Toilet Toilet Urinal Urinal # Voids 1 # Bowel Movements 1 Weight 83.9 kg 82.7 kg - Constitutional General appearance: average body habitus, cooperative - EENT EENT: PERRL, mucous membranes moist - Respiratory Respiratory: lungs clear, normal breath sounds - Cardiovascular Cardiovascular: normal S1, normal S2 Extremities: no peripheral edema bilaterally - Gastrointestinal Gastrointestinal: normoactive bowel sounds - Integumentary Integumentary: normal - Neurologic Cranial nerve examination: PERRL, EOMI, VFF, V1/V2/V3 grossly intact, face symmetric, tongue midline, intact gag reflex, intact corneal reflex, normal palatal elevation Speech examination: intact Sensorimotor examination: intact Detailed motor examination: grossly full strength in all extremities Motor examination - right side: 4/5: biceps, triceps, wrist flexion, wrist extension, artificial glass eye maker, hip flexors, knee extensors, dorsiflexion, toe extension (EHL) , plantarflexion Motor examination - left side: 4/5: biceps, triceps, wrist flexion, wrist extension, artificial glass eye maker, hip flexors, knee extensors, dorsiflexion, toe extension (EHL) , plantarflexion Detailed sensory examination: intact Reflex and gait examination: intact Reflexes: 1+: ankle, bicep, knee, tricep - Musculoskeletal Musculoskeletal: no pain - Psychiatric Psychiatric: mood/affect appropriate, cooperative Results - Laboratory Findings CBC and BMP: 03/08/17 05:21 03/08/17 05:21 Abnormal Lab Findings: Abnormal Labs 03/07/17 03/07/17 03/07/17 14:45 14:45 14:45 RBC 4.14 L Hgb 12.7 L Hct Plt Count 462 H Lymphocytes # (Manual) PT INR APTT VBG HCO3 Potassium 5.3 H Chloride 110 H BUN 27 H Glucose 140 H POC Glucose (mg/dL) Plasma Lactic Acid Vamsi Phosphorus Total Bilirubin 1.6 H Alkaline Phosphatase 163 H Total Creatine Kinase 26 L Albumin 2.8 L Urine Protein 03/07/17 03/07/17 03/07/17 14:45 14:59 14:59 RBC Hgb Hct Plt Count Lymphocytes # (Manual) PT 41.7 H INR 4.6 H APTT 48.4 H VBG HCO3 Potassium Chloride BUN Glucose POC Glucose (mg/dL) Plasma Lactic Acid Vamsi 2.4 H* Phosphorus 1.2 L* Total Bilirubin Alkaline Phosphatase Total Creatine Kinase Albumin Urine Protein 03/07/17 03/07/17 03/07/17 15:01 15:35 19:05 RBC Hgb Hct Plt Count Lymphocytes # (Manual) PT INR APTT VBG HCO3 Potassium Chloride BUN Glucose POC Glucose (mg/dL) 128 H Plasma Lactic Acid Vamsi 0.6 L Phosphorus Total Bilirubin Alkaline Phosphatase Total Creatine Kinase Albumin Urine Protein Trace H 03/08/17 03/08/17 03/08/17 05:21 05:21 05:21 RBC 3.59 L Hgb 10.9 L Hct 34.8 L Plt Count Lymphocytes # (Manual) 0.53 L PT INR APTT VBG HCO3 22 L Potassium Chloride 112 H BUN 22 H Glucose POC Glucose (mg/dL) Plasma Lactic Acid Vamsi Phosphorus Total Bilirubin Alkaline Phosphatase Total Creatine Kinase Albumin Urine Protein Assessment and Plan (1) Acute ischemic left MCA stroke Current Visit: Yes Status: Acute Code(s): I63.512 - CEREB INFRC D/T UNSP OCCLS OR STENOS OF LEFT MID CEREB ART SNOMED Code(s): 155292397 (2) Acute encephalopathy Current Visit: Yes Status: Acute Code(s): G93.40 - ENCEPHALOPATHY, UNSPECIFIED SNOMED Code(s): 2922487 (3) Dementia Current Visit: Yes Status: Acute Code(s): F03.90 - UNSPECIFIED DEMENTIA WITHOUT BEHAVIORAL DISTURBANCE SNOMED Code(s): 54707162 (4) History of prostate cancer Current Visit: Yes Status: Acute Code(s): Z85.46 - PERSONAL HISTORY OF MALIGNANT NEOPLASM OF PROSTATE SNOMED Code(s): 074688068 (5) Fever Current Visit: Yes Status: Acute Code(s): R50.9 - FEVER, UNSPECIFIED SNOMED Code(s): 940626779 Plan: This patient is a 86-year-old male being evaluated for altered mental status and some episode of expressive aphasia yesterday. He was brought into the emergency room and he was seen there by Dr. Gonzalez. He underwent a computed tomography scan of the brain and his CT angiogram of the head and neck. Results are as noted above. He was admitted to the hospital for possible stroke. He was not a candidate for thrombolytic therapy with TPA as he had a INR 4.6 and his NIH stroke scale was 1.0 and the ER yesterday. Patient continues to show evidence of mild confusion. He has a history of underlying dementia. We are recommending he undergo an MRI of the brain for further evaluation of possible acute stroke as there is an area on the CAT scan of the left frontal lobe hypodensity. Patient also shows evidence of sclerotic lesion at T3 thoracic spine suggesting possibility of osteoblastic metastasis. Bone scan has been recommended. CT angiogram also revealed right ICA stenosis and we have recommended a vascular surgery consultation. We will obtain MRI of the brain later today for further assessment of this possibility of acute stroke. His Coumadin is on hold at this time due to the elevated INR yesterday. This morning's INR level is pending. We will obtain a routine EEG for further assessment of his cognitive function and history of dementia. His overall prognosis at this time remains very guarded. We will continue to follow his progress closely during this admission. Case was discussed today at length with the patient's nurse this morning. Orders were given. We will continue to monitor him closely during this admission. Time with Patient: Greater than 30
[2017-03-08 09:09] LABS: INR 4.6 (<1.2); Prothrombin Time 41.5 sec (9.0-12.0)
--- NOTE | 2017-03-08 09:17 | P.CONS ---
History of Present Illness - Reason for Consult Consult date: 03/08/17 Dysphagia Requesting physician: Joanne Hartman - History of Present Illness 86-year-old male admitted with mental status changes expressive aphasia. Past medical history dementia, atrial fibrillation warfarin monitoring, bowel resection, Kidney transplant, TIA, CVA, prostate carcinoma, skin carcinoma, hypertension, and hyperlipidemia. Consult requested for dysphagia. History obtained from medical records and nursing staff; patient is unable to provide accurate history. According to the ER records patient had difficulty swallowing choking on oral medications last night. He has been nothing by mouth since admission. Speech evaluation has been ordered and is pending. Neurology consulted. No reports of hematemesis hematochezia melena. Patient appears to be without abdominal discomfort. On evaluation in the room this morning's patient is clear but speaks off tangent does not stay on topic with conversation. White count 6.9. Hemoglobin 12.7. INR 4.6. Influenza screen not detected. 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 Approximately 50% stenosis right carotid bulb. Numerous punctate sclerotic foci of the manubrium and upper thoracic spine as well as vertebral body suspicious for osteoblastic metastasis. CT brain without contrast no acute intracranial hemorrhage or midline shift. Hypoattenuation left frontal lobe with volume loss suggest subacute to chronic ischemia within a branch vessel of the left MCA. Patient has had colonoscopies in the past (2014) unsure if he's had an EGD. Review of Systems Obtained from medical records nursing staff Constitutional: Denies fever, chills, sweats, weight gain, or loss. HEENT: Negative for migraines, blurred vision or loss, earaches, drainage, tinnitus, oral mucosal lesions, dysphagia, or odynophagia. Cardiac: Atrial fibrillation. Hyperlipidemia. Hypertension. Negative for chest pain, arrhythmias, or palpitation. Respiratory: Negative for shortness of breath, hemoptysis, cough, or sputum production. Gastrointestinal: See HPI for pertinent findings. Genitourinary: Prostate cancer.. Musculoskeletal: Negative for muscle aches, swelling, arthritis, and arthralgias. Neurologic: History of TIA/CVA. Endocrine: Negative for thyroid problems. Nephrology: Kidney transplant. Skin: Skin cancer. Psychiatric: Negative history for depression and anxiety ROS unobtainable: due to mental status Past Medical History Past Medical History: Atrial Fibrillation, Cancer, CVA/TIA, Eye Disorder, Hyperlipidemia, Hypertension, Memory Impairment, Prostate Disorder, Renal Disease Additional Past Medical History / Comment(s): KIDNEY TRANSPLANT(1992), HX OF TIA X2 AND CVA (11/2014) WITH SOME APHASIA,, HX OF BLOOD IN THE STOOL, SKIN CA , PROSTATE CA., GOUT. PT BLIND LEFT EYE. History of Any Multi-Drug Resistant Organisms: None Reported Past Surgical History: Bowel Resection, Tonsillectomy Additional Past Surgical History / Comment(s): KIDNEY TRANSPLANT-1992, COLONOSCOPY, SEEDS IMPLANTED INTO PROSTATE FOR CANCER, SKIN CA REMOVED FROM BACK AND FACE, CATARACT SURG., COLONOSCOPY. Past Anesthesia/Blood Transfusion Reactions: No Reported Reaction Past Psychological History: No Psychological Hx Reported Smoking Status: Former smoker Past Alcohol Use History: None Reported Additional Past Alcohol Use History / Comment(s): SMOKED APPROX 13 YEARS , LESS THAN 1/2 PPD. Past Drug Use History: None Reported - Past Family History Son(s) Family Medical History: Cancer Additional Family Medical History / Comment(s): 2 SONS , ONE HAD LYMPHOMA, AND ONE HAD MULT. MYELOMA Brother(s) Family Medical History: Cancer Medications and Allergies Home Medications Medication Instructions Recorded Confirmed Type Ergocalciferol (Vitamin D2) 50,000 unit PO Q30D 12/22/14 03/07/17 History [Drisdol] Timolol 0.5% Ophth Soln [Timoptic 1 drop BOTH EYES DAILY 12/22/14 03/07/17 History 0.5% Ophth Soln] Warfarin Sodium [Warfarin Sodium] 5 mg PO MOWEFR 12/22/14 03/07/17 History azaTHIOprine [Imuran] 50 mg PO DAILY 02/26/15 03/07/17 History cycloSPORINE, MODIFIED [Neoral] 50 mg PO BID 02/26/15 03/07/17 History Diltiazem HCl 60 mg PO HS 03/08/15 03/07/17 History Calcitriol [Rocaltrol] 0.25 mcg PO DAILY 01/09/16 03/07/17 History Simvastatin [Zocor] 2.5 mg PO Q72H 06/22/16 03/07/17 History Warfarin [Coumadin] 2.5 mg PO SUTUTHSA 06/22/16 03/07/17 History Donepezil [Aricept] 10 mg PO HS 03/07/17 03/07/17 History Famotidine [Pepcid] 20 mg PO DAILY 03/07/17 03/07/17 History Allergies Allergy/AdvReac Type Severity Reaction Status Date / Time No Known Allergies Allergy Verified 03/07/17 14:35 Physical Exam Vitals: Vital Signs Temp Pulse Pulse Resp BP BP Pulse Ox 03/08/17 04:00 97.4 F L 67 18 103/58 96 03/08/17 00:43 98.4 F 78 18 128/79 98 03/07/17 22:18 98 F 86 17 121/80 100 03/07/17 20:06 98.2 F 91 18 133/71 100 03/07/17 19:54 98.5 F 86 18 121/80 100 03/07/17 18:56 89 18 121/89 98 03/07/17 18:07 99.7 F H 93 18 138/80 98 03/07/17 16:54 101.0 F H 93 16 144/82 100 03/07/17 15:35 101.4 F H 03/07/17 15:16 97 16 159/76 99 03/07/17 15:00 102 H 18 156/93 100 03/07/17 14:45 106 H 18 148/89 100 03/07/17 14:30 95 18 151/75 99 03/07/17 14:12 98.8 F 112 H 28 H 174/99 100 Intake and Output 03/07/17 03/08/17 03/08/17 22:59 06:59 14:59 Output Total 300 100 Balance -300 -100 Output: Urine 300 100 Other: Voiding Method Toilet Toilet Urinal Urinal # Voids 1 # Bowel Movements 1 Weight 83.9 kg 82.7 kg General appearance: The patient is alert, confused in no acute distress. HET: Head is normocephalic and atraumatic. Pupils are equal and reactive. Oropharynx is clear without lesions. Neck: Supple without lymphadenopathy. Trachea midline. Heart: S1 S2. Regular rate and rhythm. Lungs: No crackles or wheezes are heard. Abdomen: Soft, nontender, nondistended with bowel sounds. No peritoneal signs. No palpable organomegaly or masses. Extremities: Normal skin color and turgor. No cyanosis, rash, ulceration, clubbing, or edema. Radial and pedal pulses are 2/4 bilaterally. Neurological: No focal deficits. Strength and sensation are grossly intact. Results CBC & Chem 7: 03/09/17 05:37 03/09/17 05:37 Labs: Abnormal Lab Results - Last 24 Hours (Table) 03/07/17 03/07/17 03/07/17 Range/Units 14:45 14:45 14:45 RBC 4.14 L (4.30-5.90) m/uL Hgb 12.7 L (13.0-17.5) gm/dL Hct (39.0-53.0) % Plt Count 462 H (150-450) k/uL Lymphocytes # (Manual) (1.0-4.8) k/uL PT (9.0-12.0) sec INR (<1.2) APTT (22.0-30.0) sec VBG HCO3 (24-28) mmol/L Potassium 5.3 H (3.5-5.1) mmol/L Chloride 110 H (98-107) mmol/L BUN 27 H (9-20) mg/dL Glucose 140 H (74-99) mg/dL POC Glucose (mg/dL) (75-99) mg/dL Plasma Lactic Acid Vamsi (0.7-2.0) mmol/L Phosphorus (2.5-4.5) mg/dL Total Bilirubin 1.6 H (0.2-1.3) mg/dL Alkaline Phosphatase 163 H (38-126) U/L Total Creatine Kinase 26 L (55-170) U/L Albumin 2.8 L (3.5-5.0) g/dL Urine Protein (Negative) 03/07/17 03/07/17 03/07/17 Range/Units 14:45 14:59 14:59 RBC (4.30-5.90) m/uL Hgb (13.0-17.5) gm/dL Hct (39.0-53.0) % Plt Count (150-450) k/uL Lymphocytes # (Manual) (1.0-4.8) k/uL PT 41.7 H (9.0-12.0) sec INR 4.6 H (<1.2) APTT 48.4 H (22.0-30.0) sec VBG HCO3 (24-28) mmol/L Potassium (3.5-5.1) mmol/L Chloride (98-107) mmol/L BUN (9-20) mg/dL Glucose (74-99) mg/dL POC Glucose (mg/dL) (75-99) mg/dL Plasma Lactic Acid Vamsi 2.4 H* (0.7-2.0) mmol/L Phosphorus 1.2 L* (2.5-4.5) mg/dL Total Bilirubin (0.2-1.3) mg/dL Alkaline Phosphatase (38-126) U/L Total Creatine Kinase (55-170) U/L Albumin (3.5-5.0) g/dL Urine Protein (Negative) 03/07/17 03/07/17 03/07/17 Range/Units 15:01 15:35 19:05 RBC (4.30-5.90) m/uL Hgb (13.0-17.5) gm/dL Hct (39.0-53.0) % Plt Count (150-450) k/uL Lymphocytes # (Manual) (1.0-4.8) k/uL PT (9.0-12.0) sec INR (<1.2) APTT (22.0-30.0) sec VBG HCO3 (24-28) mmol/L Potassium (3.5-5.1) mmol/L Chloride (98-107) mmol/L BUN (9-20) mg/dL Glucose (74-99) mg/dL POC Glucose (mg/dL) 128 H (75-99) mg/dL Plasma Lactic Acid Vamsi 0.6 L (0.7-2.0) mmol/L Phosphorus (2.5-4.5) mg/dL Total Bilirubin (0.2-1.3) mg/dL Alkaline Phosphatase (38-126) U/L Total Creatine Kinase (55-170) U/L Albumin (3.5-5.0) g/dL Urine Protein Trace H (Negative) 03/08/17 03/08/17 03/08/17 Range/Units 05:21 05:21 05:21 RBC 3.59 L (4.30-5.90) m/uL Hgb 10.9 L (13.0-17.5) gm/dL Hct 34.8 L (39.0-53.0) % Plt Count (150-450) k/uL Lymphocytes # (Manual) 0.53 L (1.0-4.8) k/uL PT (9.0-12.0) sec INR (<1.2) APTT (22.0-30.0) sec VBG HCO3 22 L (24-28) mmol/L Potassium (3.5-5.1) mmol/L Chloride 112 H (98-107) mmol/L BUN 22 H (9-20) mg/dL Glucose (74-99) mg/dL POC Glucose (mg/dL) (75-99) mg/dL Plasma Lactic Acid Vamsi (0.7-2.0) mmol/L Phosphorus (2.5-4.5) mg/dL Total Bilirubin (0.2-1.3) mg/dL Alkaline Phosphatase (38-126) U/L Total Creatine Kinase (55-170) U/L Albumin (3.5-5.0) g/dL Urine Protein (Negative) Microbiology - Last 24 Hours (Table) 03/07/17 15:35 Urine Culture - Preliminary Urine,Catheterized Assessment and Plan Assessment: Impression: 1. Dysphagia suspect oropharyngeal possible mechanical. 2. Acute ischemic left MCA stroke. 3. 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 4. Dementia. Recommendations: 1. Bedside swallow elevation by speech pathology; risk for aspiration, poor nutrition and dehydration. Patient may require enteral feedings. 2. Possible MBS possible esophagram possible EGD after speech evaluation is complete; will discuss results with speech pathologists. Thank you for this kind referral and the opportunity to participate in the care of your patient. This consultation was discussed with Dr. Loja. The impression and plan of care have been directed as dictated.
[2017-03-08 11:01] LABS: Glucose,Whole Blood 117 mg/dL (75-99)
--- NOTE | 2017-03-08 12:25 | MR ---
EXAMINATION TYPE: MR brain wo/w con DATE OF EXAM: 03/08/2017 COMPARISON: CT brain 03/07/2017 HISTORY: Patient with confusion and possible stroke TECHNIQUE: Multiplanar, multisequence images of the brain and brainstem is performed without and with IV contras t, utilizing 7.5 mL intravenous Gadavist . FINDINGS: Diffusion weighted images demonstrate no evidence of a recent infarct or other diffusion ab normality. There is no extra-axial fluid collection or significant interval change in white matter s ignal abnormality. Scattered and confluent hyperintensities are present within the periventricular an d subcortical white matter compatible with chronic small vessel ischemia on inversion recovery and T2 -weighted sequences, lacunar infarct noted in the basal ganglia on the right as on CT. There is some encephalomalacia inferior aspect left cerebellar hemisphere, gliosis noted corresponding to patient's prior infarct in the left frontal lobe. The ventricular system and cisternal spaces are normal in s ize and appearance. The brain volume is age appropriate, cortical atrophy again noted. Midline structures demonstrate normal morphology. The craniocervical junction appears within normal limits. Post contrast images demonstrates dural enhancement and is uniform. The dural venous sinuses appear patent. The visualized sinuses are remarkable for inflammatory change in the ethmoid air cell s and the globes are intact. IMPRESSION: Chronic small vessel ischemic changes, age related atrophy
--- NOTE | 2017-03-08 15:17 | P.HPIM ---
History of Present Illness H&P Date: 03/08/17 Chief Complaint: Mental status changes fever This is a pleasant 86-year-old gentleman patient of Dr. Banuelos. He has underlying history of CVA in 2015 with resultant speech problem mainly expressive aphasia, dementia, hypertension, CK D stage III, prostate cancer with seed implant, long-term anticoagulation secondary to chronic atrial fibrillation, GERD, admitted to the hospital secondary to weakness and mental status changes. According to the , patient was shaky, has shortness of breath with dyspnea and exertion, requiring his ER evaluation. According to the has had dysphagia for the past 4 weeks to both foods and liquids and pills, he was scheduled to have an EGD on March 22 by GI. Patient was subsequently seen in the emergency room and was noted to be febrile, temperature of 101.4, agent has had diarrhea for a few days watery, no dysuria, In the emergency room, double basic count of 5.9, hemoglobin 10.9, INR all 4.6 urinalysis is negative, influenza test is negative, chest x-ray shows interstitial lung disease without any acute cardiopulmonary processes, there is a metastatic disease skeletal structures noted in routine x-ray. Patient was seen by Dr. Arroyo neurology during ER presentation, NIH score of 1, not requiring any treatment of TPA as his INR is 4.6 and NIH score 1, CAT scan of the brain shows wedge-shaped hypoattenuation in the left frontal lobe suggesting subacute to chronic ischemia, evidence of old cerebellar infarct on the left side. 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 There is also suggestion off sclerotic foci in the upper thoracic spine T2 level suggesting possibility for she blastic metastasis. Bone scan was recommended, and vascular consultation was recommended by neurology. GI consult for the dysphagia. When patient was seen, patient is back to his mentation, speech seems clear, has confusion as noted to answers that are off tangent for most part he remains on track regarding to his responses. Patient currently is on IV Zosyn for suspected aspiration pneumonia however chest x-ray did not reveal any acute infiltrates him a CT of the chest high resolution to evaluate for pulmonary fibrosis as there is notation of interstitial lung disease noted., C. diff for diarrhea, blood cultures had been obtained, Review of Systems Constitutional: Reports as per HPI, Denies anorexia, Denies chills, Denies chronic headaches, Denies chronic pain, Denies daytime sleepiness, Denies fatigue, Denies fever, Denies lethargy, Denies malaise, Denies night sweats, Denies poor appetite, Denies sweats, Denies weakness, Denies weight gain, Denies weight loss Ears, nose, mouth and throat: Reports as per HPI, Denies ant. neck pain, Denies bleeding gums, Denies dental pain, Denies dysphagia, Denies epistaxis, Denies headache, Denies hoarseness, Denies mouth pain, Denies nasal congestion, Denies nasal discharge, Denies neck fullness/pressure, Denies neck lump, Denies nose pain, Denies odynophagia, Denies post-nasal drip, Denies sinus pain, Denies sinus pressure, Denies swelling in mouth, Denies swelling in throat, Denies sore throat, Denies vertigo, Denies voice changes Cardiovascular: Reports as per HPI Respiratory: Reports as per HPI, Reports cough, Reports dyspnea Gastrointestinal: Reports as per HPI, Denies abdominal pain, Denies belching, Denies bloating, Denies BRBPR, Denies change in bowel habits, Denies coffee ground emesis, Denies constipation, Denies diarrhea, Denies dyspepsia, Denies early satiety, Denies excessive gas, Denies heartburn, Denies hematemesis, Denies hematochezia, Denies indigestion, Denies jaundice, Denies lactose intolerance, Denies loss of appetite, Denies melena, Denies nausea, Denies vomiting Genitourinary: Reports as per HPI, Denies decreased libido, Denies difficulties fathering child, Denies discharge, Denies dysuria, Denies erectile dysfunction, Denies flank pain, Denies genital pain, Denies genital sores, Denies hematuria, Denies impotence, Denies incontinence, Denies kidney stones, Denies nocturia, Denies polyuria, Denies testicular lump, Denies testicular pain, Denies urinary frequency, Denies urinary hesitancy, Denies urinary retention Musculoskeletal: Reports as per HPI, Denies arm numbness/tingling, Denies atrophy, Denies fractures, Denies frequent falls, Denies gait dysfunction, Denies hot joints, Denies leg numbness/tingling, Denies limitation of motion, Denies loss of height, Denies low back pain, Denies morning stiffness, Denies muscle cramps, Denies muscle weakness, Denies myalgias, Denies neck pain, Denies neck stiffness, Denies prior amputations, Denies redness of joints, Denies shooting arm pain, Denies shooting leg pain Integumentary: Reports as per HPI, Denies acne, Denies boils, Denies brittle nails, Denies change in hair/nails, Denies color changes, Denies darkening of skin, Denies depigmentation, Denies dryness, Denies foot/leg ulcers, Denies growths, Denies hirsutism, Denies lesions, Denies onychomycosis, Denies pruritus , Denies rash, Denies sores, Denies striae, Denies unusual bruising, Denies wounds Neurological: Reports as per HPI, Denies aphasia, Denies ataxia, Denies balance difficulties, Denies burning pain, Denies change in mentation, Denies change in smell/taste, Denies change in speech, Denies confusion, Denies convulsions, Denies double vision, Denies gait dysfunction, Denies head injury, Denies headaches, Denies hearing difficulties, Denies lack of coordination, Denies loss of vision, Denies memory loss, Denies migraines, Denies motor disturbance, Denies numbness, Denies paralysis, Denies paresthesias, Denies seizures, Denies sensory deficit, Denies spasticity, Denies syncope, Denies tic, Denies tingling , Denies transient paralysis, Denies tremors, Denies vertigo, Denies weakness, Denies visual changes Psychiatric: Reports as per HPI, Denies anhedonia, Denies anxiety, Denies anxiety attacks, Denies change in appetite, Denies change in libido, Denies change in sleep habits, Denies confusion, Denies depression, Denies difficulty concentrating, Denies disorientation, Denies hallucinations, Denies hopelessness , Denies hypersomnia, Denies insomnia, Denies irritability, Denies memory loss, Denies mood swings, Denies paranoia, Denies sadness/tearfulness, Denies sleep disturbances, Denies suicidal ideation Endocrine: Reports as per HPI Hematologic/Lymphatic: Reports as per HPI Allergic/Immunologic: Reports as per HPI, Denies allergic rhinitis, Denies anaphylaxis, Denies angioedema, Denies gluten intolerance, Denies persistent infections, Denies seasonal allergies, Denies urticaria, Denies wheezing Past Medical History Past Medical History: Atrial Fibrillation, Cancer, CVA/TIA, Eye Disorder, Hyperlipidemia, Hypertension, Memory Impairment, Prostate Disorder, Renal Disease Additional Past Medical History / Comment(s): KIDNEY TRANSPLANT(1992), HX OF TIA X2 AND CVA (11/2014) WITH SOME APHASIA,, HX OF BLOOD IN THE STOOL, SKIN CA , PROSTATE CA., GOUT. PT BLIND LEFT EYE. History of Any Multi-Drug Resistant Organisms: None Reported Past Surgical History: Bowel Resection, Tonsillectomy Additional Past Surgical History / Comment(s): KIDNEY TRANSPLANT-1992, COLONOSCOPY, SEEDS IMPLANTED INTO PROSTATE FOR CANCER, SKIN CA REMOVED FROM BACK AND FACE, CATARACT SURG., COLONOSCOPY. Past Anesthesia/Blood Transfusion Reactions: No Reported Reaction Past Psychological History: No Psychological Hx Reported Smoking Status: Former smoker Past Alcohol Use History: None Reported Additional Past Alcohol Use History / Comment(s): SMOKED APPROX 13 YEARS , LESS THAN 1/2 PPD. Past Drug Use History: None Reported - Past Family History Son(s) Family Medical History: Cancer Additional Family Medical History / Comment(s): 2 SONS , ONE HAD LYMPHOMA, AND ONE HAD MULT. MYELOMA Brother(s) Family Medical History: Cancer Medications and Allergies Home Medications Medication Instructions Recorded Confirmed Type Ergocalciferol (Vitamin D2) 50,000 unit PO Q30D 12/22/14 03/07/17 History [Drisdol] Timolol 0.5% Ophth Soln [Timoptic 1 drop BOTH EYES DAILY 12/22/14 03/07/17 History 0.5% Ophth Soln] Warfarin Sodium [Warfarin Sodium] 5 mg PO MOWEFR 12/22/14 03/07/17 History azaTHIOprine [Imuran] 50 mg PO DAILY 02/26/15 03/07/17 History cycloSPORINE, MODIFIED [Neoral] 50 mg PO BID 02/26/15 03/07/17 History Diltiazem HCl 60 mg PO HS 03/08/15 03/07/17 History Calcitriol [Rocaltrol] 0.25 mcg PO DAILY 01/09/16 03/07/17 History Simvastatin [Zocor] 2.5 mg PO Q72H 06/22/16 03/07/17 History Warfarin [Coumadin] 2.5 mg PO SUTUTHSA 06/22/16 03/07/17 History Donepezil [Aricept] 10 mg PO HS 03/07/17 03/07/17 History Famotidine [Pepcid] 20 mg PO DAILY 03/07/17 03/07/17 History Allergies Allergy/AdvReac Type Severity Reaction Status Date / Time No Known Allergies Allergy Verified 03/07/17 14:35 Physical Exam Vitals: Vital Signs Temp Pulse Pulse Resp BP BP Pulse Ox 03/08/17 12:00 98.0 F 103 H 18 145/86 98 03/08/17 08:00 98.2 F 90 18 128/72 96 03/08/17 04:00 97.4 F L 67 18 103/58 96 03/08/17 00:43 98.4 F 78 18 128/79 98 03/07/17 22:18 98 F 86 17 121/80 100 03/07/17 20:06 98.2 F 91 18 133/71 100 03/07/17 19:54 98.5 F 86 18 121/80 100 03/07/17 18:56 89 18 121/89 98 03/07/17 18:07 99.7 F H 93 18 138/80 98 03/07/17 16:54 101.0 F H 93 16 144/82 100 03/07/17 15:35 101.4 F H 03/07/17 15:16 97 16 159/76 99 03/07/17 15:00 102 H 18 156/93 100 03/07/17 14:45 106 H 18 148/89 100 03/07/17 14:30 95 18 151/75 99 Intake and Output 03/07/17 03/08/17 03/08/17 22:59 06:59 14:59 Output Total 300 100 Balance -300 -100 Output: Urine 300 100 Other: Voiding Method Toilet Toilet Toilet Urinal Urinal Urinal Diaper # Voids 1 1 # Bowel Movements 1 Weight 83.9 kg 82.7 kg - Constitutional General appearance: cooperative, no acute distress, obese - EENT Eyes: anicteric sclerae, EOMI, PERRLA, dentition normal, normal appearance ENT: NA/AT, normal oropharynx - Neck Neck: normal ROM - Respiratory Respiratory: bilateral: CTA, negative: diminished, dullness - Cardiovascular Rhythm: regular Heart sounds: normal: S1, S2 Abnormal Heart Sounds: no systolic murmur, no diastolic murmur, no rub, no S3 Gallop, no S4 Gallop, no click, no other - Gastrointestinal General gastrointestinal: normal bowel sounds, soft - Integumentary Integumentary: decreased turgor, normal - Musculoskeletal Musculoskeletal: generalized weakness, strength equal bilaterally - Psychiatric Psychiatric: A&O x's 3, appropriate affect Results CBC & Chem 7: 03/08/17 05:21 03/08/17 05:21 Labs: Abnormal Lab Results - Last 24 Hours (Table) 03/07/17 03/07/17 03/07/17 Range/Units 14:08 14:45 14:45 RBC 4.14 L (4.30-5.90) m/uL Hgb 12.7 L (13.0-17.5) gm/dL Hct (39.0-53.0) % Plt Count 462 H (150-450) k/uL Lymphocytes # (Manual) (1.0-4.8) k/uL PT (9.0-12.0) sec INR (<1.2) APTT (22.0-30.0) sec VBG HCO3 (24-28) mmol/L Potassium 5.3 H (3.5-5.1) mmol/L Chloride 110 H (98-107) mmol/L BUN 27 H (9-20) mg/dL Glucose 140 H (74-99) mg/dL POC Glucose (mg/dL) 117 H (75-99) mg/dL Plasma Lactic Acid Vamsi (0.7-2.0) mmol/L Phosphorus (2.5-4.5) mg/dL Total Bilirubin 1.6 H (0.2-1.3) mg/dL Alkaline Phosphatase 163 H (38-126) U/L Total Creatine Kinase (55-170) U/L Albumin 2.8 L (3.5-5.0) g/dL Urine Protein (Negative) 03/07/17 03/07/17 03/07/17 Range/Units 14:45 14:45 14:59 RBC (4.30-5.90) m/uL Hgb (13.0-17.5) gm/dL Hct (39.0-53.0) % Plt Count (150-450) k/uL Lymphocytes # (Manual) (1.0-4.8) k/uL PT 41.7 H (9.0-12.0) sec INR 4.6 H (<1.2) APTT 48.4 H (22.0-30.0) sec VBG HCO3 (24-28) mmol/L Potassium (3.5-5.1) mmol/L Chloride (98-107) mmol/L BUN (9-20) mg/dL Glucose (74-99) mg/dL POC Glucose (mg/dL) (75-99) mg/dL Plasma Lactic Acid Vamsi 2.4 H* (0.7-2.0) mmol/L Phosphorus (2.5-4.5) mg/dL Total Bilirubin (0.2-1.3) mg/dL Alkaline Phosphatase (38-126) U/L Total Creatine Kinase 26 L (55-170) U/L Albumin (3.5-5.0) g/dL Urine Protein (Negative) 03/07/17 03/07/17 03/07/17 Range/Units 14:59 15:01 15:35 RBC (4.30-5.90) m/uL Hgb (13.0-17.5) gm/dL Hct (39.0-53.0) % Plt Count (150-450) k/uL Lymphocytes # (Manual) (1.0-4.8) k/uL PT (9.0-12.0) sec INR (<1.2) APTT (22.0-30.0) sec VBG HCO3 (24-28) mmol/L Potassium (3.5-5.1) mmol/L Chloride (98-107) mmol/L BUN (9-20) mg/dL Glucose (74-99) mg/dL POC Glucose (mg/dL) 128 H (75-99) mg/dL Plasma Lactic Acid Vamsi (0.7-2.0) mmol/L Phosphorus 1.2 L* (2.5-4.5) mg/dL Total Bilirubin (0.2-1.3) mg/dL Alkaline Phosphatase (38-126) U/L Total Creatine Kinase (55-170) U/L Albumin (3.5-5.0) g/dL Urine Protein Trace H (Negative) 03/07/17 03/08/17 03/08/17 Range/Units 19:05 05:21 05:21 RBC 3.59 L (4.30-5.90) m/uL Hgb 10.9 L (13.0-17.5) gm/dL Hct 34.8 L (39.0-53.0) % Plt Count (150-450) k/uL Lymphocytes # (Manual) 0.53 L (1.0-4.8) k/uL PT (9.0-12.0) sec INR (<1.2) APTT (22.0-30.0) sec VBG HCO3 22 L (24-28) mmol/L Potassium (3.5-5.1) mmol/L Chloride (98-107) mmol/L BUN (9-20) mg/dL Glucose (74-99) mg/dL POC Glucose (mg/dL) (75-99) mg/dL Plasma Lactic Acid Vamsi 0.6 L (0.7-2.0) mmol/L Phosphorus (2.5-4.5) mg/dL Total Bilirubin (0.2-1.3) mg/dL Alkaline Phosphatase (38-126) U/L Total Creatine Kinase (55-170) U/L Albumin (3.5-5.0) g/dL Urine Protein (Negative) 03/08/17 03/08/17 Range/Units 05:21 05:21 RBC (4.30-5.90) m/uL Hgb (13.0-17.5) gm/dL Hct (39.0-53.0) % Plt Count (150-450) k/uL Lymphocytes # (Manual) (1.0-4.8) k/uL PT 41.5 H (9.0-12.0) sec INR 4.6 H (<1.2) APTT (22.0-30.0) sec VBG HCO3 (24-28) mmol/L Potassium (3.5-5.1) mmol/L Chloride 112 H (98-107) mmol/L BUN 22 H (9-20) mg/dL Glucose (74-99) mg/dL POC Glucose (mg/dL) (75-99) mg/dL Plasma Lactic Acid Vamsi (0.7-2.0) mmol/L Phosphorus (2.5-4.5) mg/dL Total Bilirubin (0.2-1.3) mg/dL Alkaline Phosphatase (38-126) U/L Total Creatine Kinase (55-170) U/L Albumin (3.5-5.0) g/dL Urine Protein (Negative) Microbiology - Last 24 Hours (Table) 03/07/17 15:35 Urine Culture - Preliminary Urine,Catheterized Laboratory Results WBC 5.9 k/uL (3.8-10.6) 03/08/17 05:21 RBC 3.59 m/uL (4.30-5.90) L 03/08/17 05:21 Hgb 10.9 gm/dL (13.0-17.5) L 03/08/17 05:21 Hct 34.8 % (39.0-53.0) L 03/08/17 05:21 MCV 96.9 fL (80.0-100.0) 03/08/17 05:21 MCH 30.4 pg (25.0-35.0) 03/08/17 05:21 MCHC 31.4 g/dL (31.0-37.0) 03/08/17 05:21 RDW 13.6 % (11.5-15.5) 03/08/17 05:21 Plt Count 375 k/uL (150-450) 03/08/17 05:21 Neutrophils % 74 % 03/07/17 14:45 Neutrophils % (Manual) 80 % 03/08/17 05:21 Band Neutrophils % 1 % 03/08/17 05:21 Lymphocytes % 14 % 03/07/17 14:45 Lymphocytes % (Manual) 9 % 03/08/17 05:21 Monocytes % 9 % 03/07/17 14:45 Monocytes % (Manual) 9 % 03/08/17 05:21 Eosinophils % 0 % 03/07/17 14:45 Eosinophils % (Manual) 1 % 03/08/17 05:21 Basophils % 0 % 03/07/17 14:45 Neutrophils # 5.1 k/uL (1.3-7.7) 03/07/17 14:45 Neutrophils # (Manual) 4.70 k/uL (1.3-7.7) 03/08/17 05:21 Lymphocytes # 1.0 k/uL (1.0-4.8) 03/07/17 14:45 Lymphocytes # (Manual) 0.53 k/uL (1.0-4.8) L 03/08/17 05:21 Monocytes # 0.6 k/uL (0-1.0) 03/07/17 14:45 Monocytes # (Manual) 0.53 k/uL (0-1.0) 03/08/17 05:21 Eosinophils # 0.0 k/uL (0-0.7) 03/07/17 14:45 Eosinophils # (Manual) 0.06 k/uL (0-0.7) 03/08/17 05:21 Basophils # 0.0 k/uL (0-0.2) 03/07/17 14:45 Nucleated RBCs 0 /100 WBC (0-0) 03/08/17 05:21 Manual Slide Review Performed 03/08/17 05:21 Large Platelets Present 03/08/17 05:21 Hypochromasia Slight 03/08/17 05:21 PT 41.5 sec (9.0-12.0) H 03/08/17 05:21 INR 4.6 (<1.2) H 03/08/17 05:21 APTT 48.4 sec (22.0-30.0) H 03/07/17 14:45 VBG pH 7.33 (7.31-7.41) 03/08/17 05:21 VBG pCO2 44 mmHg (37-51) 03/08/17 05:21 VBG HCO3 22 mmol/L (24-28) L 03/08/17 05:21 Sodium 142 mmol/L (137-145) 03/08/17 05:21 Potassium 5.0 mmol/L (3.5-5.1) 03/08/17 05:21 Chloride 112 mmol/L (98-107) H 03/08/17 05:21 Carbon Dioxide 24 mmol/L (22-30) 03/08/17 05:21 Anion Gap 6 mmol/L 03/08/17 05:21 BUN 22 mg/dL (9-20) H 03/08/17 05:21 Creatinine 1.00 mg/dL (0.66-1.25) 03/08/17 05:21 Est GFR (MDRD) Af Amer >60 (>60 ml/min/1.73 sqM) 03/08/17 05:21 Est GFR (MDRD) Non-Af >60 (>60 ml/min/1.73 sqM) 03/08/17 05:21 Glucose 93 mg/dL (74-99) 03/08/17 05:21 POC Glucose (mg/dL) 128 mg/dL (75-99) H 03/07/17 15:01 POC Glu Employment Director ID Yg Smith 03/07/17 15:01 Lactic Ac Sepsis Rflx Y 03/07/17 15:22 Plasma Lactic Acid Vamsi 0.6 mmol/L (0.7-2.0) L 03/07/17 19:05 Calcium 8.8 mg/dL (8.4-10.2) 03/08/17 05:21 Phosphorus 1.2 mg/dL (2.5-4.5) L* 03/07/17 14:59 Magnesium 2.0 mg/dL (1.6-2.3) 03/07/17 14:59 Total Bilirubin 1.6 mg/dL (0.2-1.3) H 03/07/17 14:45 AST 37 U/L (17-59) 03/07/17 14:45 ALT 23 U/L (21-72) 03/07/17 14:45 Alkaline Phosphatase 163 U/L (38-126) H 03/07/17 14:45 Ammonia <9 umol/L (<30) 03/07/17 14:59 Total Creatine Kinase 26 U/L (55-170) L 03/07/17 14:45 CK-MB (CK-2) <0.2 ng/mL (0.0-2.4) 03/07/17 14:45 CK-MB (CK-2) Rel Index 03/07/17 14:45 Troponin I <0.012 ng/mL (0.000-0.034) 03/07/17 14:45 Total Protein 6.3 g/dL (6.3-8.2) 03/07/17 14:45 Albumin 2.8 g/dL (3.5-5.0) L 03/07/17 14:45 Urine Color Yellow 03/07/17 15:35 Urine Appearance Clear (Clear) 03/07/17 15:35 Urine pH 7.0 (5.0-8.0) 03/07/17 15:35 Ur Specific [place] 1.027 (1.001-1.035) 03/07/17 15:35 Urine Protein Trace (Negative) H 03/07/17 15:35 Urine Glucose (UA) Negative (Negative) 03/07/17 15:35 Urine Ketones Negative (Negative) 03/07/17 15:35 Urine Blood Negative (Negative) 03/07/17 15:35 Urine Nitrite Negative (Negative) 03/07/17 15:35 Urine Bilirubin Negative (Negative) 03/07/17 15:35 Urine Urobilinogen >12.0 mg/dL (<2.0) 03/07/17 15:35 Ur Leukocyte Esterase Negative (Negative) 03/07/17 15:35 Influenza Type A RNA Not Detected (Not Detectd) 03/07/17 15:35 Influenza Type B (PCR) Not Detected (Not Detectd) 03/07/17 15:35 Thrombosis Risk Factor Assmnt - DVT/VTE Prophylaxis DVT/VTE Prophylaxis: Pharmacologic Prophylaxis ordered - Choose All That Apply Any of the Below Risk Factors Present?: Yes Each Risk Factor Represents 3 Points: Age 75 years or older Thrombosis Risk Factor Assessment Total Risk Factor Score: 3 Thrombosis Risk Factor Assessment Level: Moderate Risk Assessment and Plan Plan: 1. Acute metabolic encephalopathy with underlying history of dementia, presenting with fever and dyspnea, diarrhea, prior history of dysphagia. Patient has been seen by neurology to evaluate for acute CVA, MRI of the brain was performed showing chronic ischemic disease with old left frontal infarct, patient is currently on Zosyn, speech is following the patient secondary to dysphagia, GI has been consulted, chest x-ray shows interstitial lung disease without any overt infiltrates, CT high resolution of the chest to be done to evaluate for pneumonic infiltrates, patient is maintained on anticoagulation at this time hence pulmonary emboli is less likely ,) C. difficile toxin to check for his diarrhea 2. Abnormal skeletal imaging with T3 osteolytic lesion, bone scan to be done, CEA AFP and PSA to be done, known history of postoperative cancer with seed implants, prior history of high-grade dysplasia colon polyps. 3. Dysphagia oropharyngeal, present prior to admission for the past 4 weeks, consult will be made to GI, and speech currently nothing by mouth patient might require enteral feeding alternatives, was made aware of this possibility him a patient also would need an esophagram, patient currently is on Coumadin for atrial fibrillation, and is currently on hold secondary to high INR 3 prior history of post left sided colectomy 03/[address] Turcios: Secondary to higher grade dysplasia of the larger polyps. 2 chronic kidney disease stage II: Post renal transplant continue Imuran and immunosuppressive agent,With mildly elevated creatinine and chronic in origin, patient will be hydrated continue to watch BUN/creatinine daily basis. Start him back on his Imuran and immunosuppressive agent 3 A. fib chronic on long-term anticoagulation with an elevated INR noted, Coumadin would be titrated based on his requirements to keep a goal INR between 2-3 monitor for ongoing GI losses normally patient takes 2.5 mg Coumadin every day except 5 mg Monday 4 hypertension: Well control on diltiazem. 60 mg daily at bedtime 5 gout: Under control on allopurinol 100 mg daily. 6 severe GERD: Patient is on Pepcid 20 mg daily resume medication. 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 Iron levels will be done, including haptoglobin to evaluate hemolysis, Hemoccult blood stools 9 DVT prophylaxis: She chronically on Coumadin for long-term anticoagulation 10 GI prophylaxis: Remain on Pepcid. Debility, therapies would be seeing the patient in consultation for PT OT and speech CODE STATUS: Full code.
--- NOTE | 2017-03-08 16:01 | EEG ---
ELECTROENCEPHALOGRAM REPORT DATE OF EE03/08/2017 ELECTROENCEPHALOGRAPHIC EXAMINATION REPORT: INDICATION FOR EXAMINATION: This patient is an 86-year-old male being evaluated for altered mental status and confusion. The patient has history of chronic atrial fibrillation and old strokes. AGE: 86. EEG FINDINGS: A routine 21-channel awake digital EEG recording was accomplished utilizing the 10-20 international system with bipolar and referential montages. The background activity in the most alert resting state consists of a low to medium amplitude, fairly well developed and well sustained 6-7 Hz activity over the posterior head regions. This posterior rhythm attenuates to eye opening. There is a small amount of low amplitude 18-20 Hz beta activity seen maximally over the anterior head regions. Muscle and movement artifact was observed on a few occasions during the tracing. Hyperventilation was not performed. Photic stimulation at flash frequencies of 2-30 Hz produced a good symmetrical occipital driving response. No epileptiform discharges were seen. IMPRESSION: This EEG is mildly abnormal in a diffuse fashion due to slowing of the EEG background. The EEG failed to reveal any focal, lateralized, or epileptiform abnormalities. Clinical correlation is recommended. MMODL / IJN: [id number] /
[2017-03-08] MEDS: HEPARIN SODIUM,PORCINE 5,000 UNIT/ML 1 ML VIAL SQ SCH ×2 (16:20→21:00)
--- NOTE | 2017-03-08 18:17 | NM ---
EXAMINATION TYPE: NM bone scan whole body DATE OF EXAM: 03/08/2017 COMPARISON: NONE HISTORY: Prostate cancer. Sclerotic lesion at T3 Delayed whole-body scanning was performed following the injection of 27.7 mCi Tc 99m MDP. Images acq uired 3 hours post injection. FINDINGS: There is slight increased uptake at the first carpometacarpal joint of the left hand consistent with osteoarthritis. I see no significant abnormal uptake in the thoracic and lumbar spine. The right kidn ey is in the pelvis and this apparently is the transplant kidney. [place] kidneys are markedly atrophi c on the CT scan of 10/24/2016. There are some sclerotic foci in the L3, T9 and T3 vertebral bodies on the CT scan of 10/24/2016. I do not see any significant increased uptake in these areas. IMPRESSION: The bone scan does not show metabolically active osseous metastatic disease.
--- NOTE | 2017-03-08 19:22 | CT ---
EXAMINATION TYPE: CT chest wo con DATE OF EXAM: 03/08/2017 COMPARISON: 10/24/2016 HISTORY: Patient poor historian. Patient has no complaints at time of service. ILD, aspiration, pne umonia, fever. CT DLP: 755 mGycm. Automated Exposure Control for Dose Reduction was Utilized. TECHNIQUE: CT scan of the thorax is performed without IV contrast. FINDINGS: There is mild groundglass interstitial infiltrate in the mid and lower lung palacio. There is no evide nce of a pulmonary mass. There is some mild atelectasis at the posterior lung bases. There is no pleu ral effusion. Heart is enlarged. Thoracic aorta is atheromatous. There is no mediastinal adenopathy. There is coronary artery calcification. There are no hilar masses. There are spondylotic changes thro ughout the thoracic spine. IMPRESSION: There are new interstitial pulmonary infiltrates compared to last exam. No evidence of a pulmonary mass. Moderate cardiomegaly. Heart is increased compared to last exam. I see no bronchial o bstruction and I do not suspect aspiration pneumonia.
[2017-03-09] MEDS: PIPERACILLIN-TAZOBACTAM 3.375 GM in DEXTROSE/WATER 1 50ML.BAG IVPB SCH ×4 (00:37→23:45)
[2017-03-09 06:24] LABS: HCT 35.8 % (39.0-53.0); Hypochromasia Slight; MCH 30.4 pg (25.0-35.0); MCHC 30.8 g/dL (31.0-37.0); MCV 98.6 fL (80.0-100.0); Mean Platelet Volume 7.9; Platelet Count 409 k/uL (150-450); RBC 3.64 m/uL (4.30-5.90); RDW 14.4 % (11.5-15.5); WBC 6.1 k/uL (3.8-10.6)
[2017-03-09 06:33] LABS: INR 4.1 (<1.2); Prothrombin Time 37.2 sec (9.0-12.0)
[2017-03-09 06:39] LABS: ALT 28 U/L (21-72); AST 29 U/L (17-59); Albumin 2.4 g/dL (3.5-5.0); Alkaline Phosphatase 150 U/L (38-126); Anion Gap 8 mmol/L; Blood Urea Nitrogen 18 mg/dL (9-20); Carbon Dioxide 24 mmol/L (22-30); Chloride 109 mmol/L (98-107); Glucose 87 mg/dL (74-99); Potassium 4.8 mmol/L (3.5-5.1); Sodium 141 mmol/L (137-145); Total Bilirubin 1.1 mg/dL (0.2-1.3); Total Protein 5.6 g/dL (6.3-8.2)
[2017-03-09] MEDS: TIMOLOL 0.5% OPHTH DROPS 5 ML BTL BOTH EYES SCH (08:32)
[2017-03-09] MEDS: HEPARIN SODIUM,PORCINE 5,000 UNIT/ML 1 ML VIAL SQ SCH ×3 (08:32→23:45)
[2017-03-09] MEDS ORDERED: PANTOPRAZOLE 40 MG/10 ML VIAL IVP SCH (09:00)
[2017-03-09] MEDS: azaTHIOprine 50 MG TAB PO SCH (09:26)
[2017-03-09] MEDS: CALCITRIOL 0.25 MCG CAP PO SCH (09:26)
[2017-03-09] MEDS: FAMOTIDINE 20 MG TAB PO SCH (09:27)
--- NOTE | 2017-03-09 10:12 | P.PN ---
Subjective Progress Note Date: 03/09/17 Principal diagnosis: Acute CVA, dysphagia 86-year-old male admitted with acute CVA. Evaluated yesterday in regards to suspected oropharyngeal dysphagia. Seen by speech pathology dysphagia 2 diet advised. Presently tolerating a diet without emesis nausea vomiting or choking. Confused. Objective - Vital Signs Vital signs: Vital Signs Temp 97.8 F 03/09/17 04:00 Pulse 106 H 03/09/17 04:00 Resp 17 03/09/17 04:00 BP 155/92 03/09/17 04:00 Pulse Ox 97 03/09/17 04:00 Intake & Output 03/08/17 03/09/17 03/09/17 18:59 06:59 18:59 Intake Total 220 50 Output Total 100 200 Balance 120 -150 Weight 81.5 kg Intake: Intake, IV Titration 50 Amount Piperacillin-Tazobactam 3 50 .375 gm In Dextrose/Water 1 50ml.bag @ 12.5 mls/hr IVPB Q8HR [facility] Rx#: [id number] Oral 220 Output: Urine 100 200 Other: Voiding Method Toilet Urinal Urinal Diaper Diaper # Voids 1 1 1 # Bowel Movements 1 - Exam General appearance: The patient is alert, confused in no acute distress. HET: Head is normocephalic and atraumatic. Pupils are equal and reactive. Oropharynx is clear without lesions. Neck: Supple without lymphadenopathy. Trachea midline. Heart: S1 S2. Regular rate and rhythm. Lungs: No crackles or wheezes are heard. Abdomen: Soft, nontender, nondistended with bowel sounds. No peritoneal signs. No palpable organomegaly or masses. Extremities: Normal skin color and turgor. No cyanosis, rash, ulceration, clubbing, or edema. Radial and pedal pulses are 2/4 bilaterally. Neurological: No focal deficits. Strength and sensation are grossly intact. - Labs CBC & Chem 7: 03/10/17 06:29 03/10/17 06:29 Labs: Abnormal Lab Results - Last 24 Hours (Table) 03/07/17 03/09/17 03/09/17 Range/Units 14:08 05:37 05:37 RBC 3.64 L (4.30-5.90) m/uL Hgb 11.0 L (13.0-17.5) gm/dL Hct 35.8 L (39.0-53.0) % MCHC 30.8 L (31.0-37.0) g/dL PT 37.2 H (9.0-12.0) sec INR 4.1 H (<1.2) Chloride (98-107) mmol/L POC Glucose (mg/dL) 117 H (75-99) mg/dL Alkaline Phosphatase (38-126) U/L Total Protein (6.3-8.2) g/dL Albumin (3.5-5.0) g/dL 03/09/17 Range/Units 05:37 RBC (4.30-5.90) m/uL Hgb (13.0-17.5) gm/dL Hct (39.0-53.0) % MCHC (31.0-37.0) g/dL PT (9.0-12.0) sec INR (<1.2) Chloride 109 H (98-107) mmol/L POC Glucose (mg/dL) (75-99) mg/dL Alkaline Phosphatase 150 H (38-126) U/L Total Protein 5.6 L (6.3-8.2) g/dL Albumin 2.4 L (3.5-5.0) g/dL Microbiology - Last 24 Hours (Table) 03/07/17 15:35 Urine Culture - Final Urine,Catheterized 03/07/17 14:59 Blood Culture - Preliminary Blood No Growth after 24 hours Assessment and Plan Assessment: Impression: 1. Oropharyngeal dysphagia. 2. Acute ischemic left MCA stroke. 3. 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 4. Dementia. 5. Warfarin-induced coagulopathy. Recommendations: 1. Continue with modified diet per speech recommendations. EGD not planned at this time. GI prophylaxis. Aspiration precautions. Assessment and plan a care discussed with Dr. Loja
--- NOTE | 2017-03-09 11:33 | P.PN ---
Subjective Progress Note Date: 03/09/17 This is a pleasant 86-year-old gentleman patient of Dr. Banuelos. He has underlying history of CVA in 2015 with resultant speech problem mainly expressive aphasia, dementia, hypertension, CK D stage III, prostate cancer with seed implant, long-term anticoagulation secondary to chronic atrial fibrillation, GERD, admitted to the hospital secondary to weakness and mental status changes. According to the , patient was shaky, has shortness of breath with dyspnea and exertion, requiring his ER evaluation. According to the has had dysphagia for the past 4 weeks to both foods and liquids and pills, he was scheduled to have an EGD on March 22 by GI. Patient was subsequently seen in the emergency room and was noted to be febrile, temperature of 101.4, agent has had diarrhea for a few days watery, no dysuria, In the emergency room, double basic count of 5.9, hemoglobin 10.9, INR all 4.6 urinalysis is negative, influenza test is negative, chest x-ray shows interstitial lung disease without any acute cardiopulmonary processes, there is a metastatic disease skeletal structures noted in routine x-ray. Patient was seen by Dr. Arroyo neurology during ER presentation, NIH score of 1, not requiring any treatment of TPA as his INR is 4.6 and NIH score 1, CAT scan of the brain shows wedge-shaped hypoattenuation in the left frontal lobe suggesting subacute to chronic ischemia, evidence of old cerebellar infarct on the left side. 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 There is also suggestion off sclerotic foci in the upper thoracic spine T2 level suggesting possibility for she blastic metastasis. Bone scan was recommended, and vascular consultation was recommended by neurology. GI consult for the dysphagia. When patient was seen, patient is back to his mentation, speech seems clear, has confusion as noted to answers that are off tangent for most part he remains on track regarding to his responses. Patient currently is on IV Zosyn for suspected aspiration pneumonia however chest x-ray did not reveal any acute infiltrates him a CT of the chest high resolution to evaluate for pulmonary fibrosis as there is notation of interstitial lung disease noted., C. diff for diarrhea, blood cultures had been obtained, 03/09:patient has been seen by GI and patient may need EGD.EEG is mildly abnormal in a diffuse fashion due to slowing of the EEG background. It failed to reveal any focal, lateralizing or epileptiform abnormalities. MRI of the brain shows chronic small vessel ischemic changes and age-related atrophy. Bone scan does not show metabolically active osseous medistatic disease. CAT scan of the thorax shows new interstitial pulmonary infiltrates compared to last exam which was October 2016. No evidence of pulmonary mass. Moderate cardiomegaly. Heart is increased compared to last exam. No bronchial obstruction. No suspected aspiration pneumonia. Speech therapy has evaluated at the bedside and recommended ground diet with progression to regular diet as tolerated. Patient has been evaluated by PT and OT with recommendations for home. Social work has arranged [facility] home care.INR is 4.1, alkaline phosphatase 150.urine culture is finalized with no growth and blood culture showing no growth after 24 hours. Modified barium swallow for today. EGD hopefully tomorrow. Objective - Vital Signs Vital signs: Vital Signs Temp 97.8 F 03/09/17 04:00 Pulse 106 H 03/09/17 04:00 Resp 17 03/09/17 04:00 BP 155/92 03/09/17 04:00 Pulse Ox 97 03/09/17 04:00 Intake & Output 03/08/17 03/09/17 03/09/17 18:59 06:59 18:59 Intake Total 220 50 Output Total 100 200 Balance 120 -150 Weight 81.5 kg Intake: Intake, IV Titration 50 Amount Piperacillin-Tazobactam 3 50 .375 gm In Dextrose/Water 1 50ml.bag @ 12.5 mls/hr IVPB Q8HR [facility] Rx#: [id number] Oral 220 Output: Urine 100 200 Other: Voiding Method Toilet Urinal Urinal Diaper Diaper # Voids 1 1 1 # Bowel Movements 1 - Exam General appearance: cooperative, no acute distress, obese - EENT Eyes: anicteric sclerae, EOMI, PERRLA, dentition normal, normal appearance ENT: NA/AT, normal oropharynx - Neck Neck: normal ROM - Respiratory Respiratory: bilateral: CTA, negative: diminished, dullness - Cardiovascular Rhythm: regular Heart sounds: normal: S1, S2 Abnormal Heart Sounds: no systolic murmur, no diastolic murmur, no rub, no S3 Gallop, no S4 Gallop, no click, no other - Gastrointestinal General gastrointestinal: normal bowel sounds, soft - Integumentary Integumentary: decreased turgor, normal - Musculoskeletal Musculoskeletal: generalized weakness, strength equal bilaterally - Psychiatric Psychiatric: A&O x's 3, appropriate affect - Labs CBC & Chem 7: 03/09/17 05:37 03/09/17 05:37 Labs: Abnormal Lab Results - Last 24 Hours (Table) 03/07/17 03/08/17 03/09/17 Range/Units 14:08 05:21 05:37 RBC 3.64 L (4.30-5.90) m/uL Hgb 11.0 L (13.0-17.5) gm/dL Hct 35.8 L (39.0-53.0) % MCHC 30.8 L (31.0-37.0) g/dL PT 41.5 H (9.0-12.0) sec INR 4.6 H (<1.2) Chloride (98-107) mmol/L POC Glucose (mg/dL) 117 H (75-99) mg/dL Alkaline Phosphatase (38-126) U/L Total Protein (6.3-8.2) g/dL Albumin (3.5-5.0) g/dL 03/09/17 03/09/17 Range/Units 05:37 05:37 RBC (4.30-5.90) m/uL Hgb (13.0-17.5) gm/dL Hct (39.0-53.0) % MCHC (31.0-37.0) g/dL PT 37.2 H (9.0-12.0) sec INR 4.1 H (<1.2) Chloride 109 H (98-107) mmol/L POC Glucose (mg/dL) (75-99) mg/dL Alkaline Phosphatase 150 H (38-126) U/L Total Protein 5.6 L (6.3-8.2) g/dL Albumin 2.4 L (3.5-5.0) g/dL Microbiology - Last 24 Hours (Table) 03/07/17 15:35 Urine Culture - Final Urine,Catheterized 03/07/17 14:59 Blood Culture - Preliminary Blood No Growth after 24 hours Assessment and Plan Plan: 1. Acute metabolic encephalopathy with underlying history of dementia, presenting with fever and dyspnea, diarrhea, prior history of dysphagia. Patient has been seen by neurology to evaluate for acute CVA, MRI of the brain was performed showing chronic ischemic disease with old left frontal infarct, patient is currently on Zosyn, speech is following the patient secondary to dysphagia, GI has been consulted, C. difficile toxin to check for his diarrhea 2. 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 3. Dysphagia oropharyngeal, present prior to admission for the past 4 weeks, consult will be made to GI, and speech recommended ground diet with aspiration precautions. Modified barium swallow today. EGD per GI. 4. History of post left sided colectomy 03/[address] 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 5. Chronic kidney disease stage II: Post renal transplant continue Imuran and immunosuppressive agent. 6. Chronic A. fib on long-term anticoagulation with an elevated INR noted, Coumadin would be titrated based on his requirements to keep a goal INR between 2-3 monitor for ongoing GI losses normally patient takes 2.5 mg Coumadin every day except 5 mg Monday 7. Hypercoagulopathy. Coumadin is on hold. 8. Hypertension. Continue diltiazem 60 mg daily at bedtime 9. Unspecified gout: patient is no longer on allopurinol 100 mg daily. 10. GERD: Continue Pepcid 20 mg daily resume medication. 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 Dementia: On Aricept 10 mg at bedtime 13. Mild anemia: Continue iron and multivitamin supplement. Iron levels will be done, including haptoglobin to evaluate hemolysis, Hemoccult blood stools 14. DVT prophylaxis: on Coumadin for long-term anticoagulation 15. GI prophylaxis: Pepcid. CODE STATUS: NO code. discharge plan: Home with [facility] Impression and plan of care have been directed as dictated by the signing physician. Belen Dodson nurse practitioner acting as scribe for signing physician.
[2017-03-09 11:43] LABS: Iron Saturation 13.92 (15.00-50.00)
--- NOTE | 2017-03-09 13:12 | FL ---
MODIFIED SWALLOW / DEGLUTITION STUDY DATE OF EXAM: 03/09/2017 CLINICAL HISTORY: 86-year-old male trouble swallowing, rule out aspiration, patient with acute stroke . TECHNIQUE: Deglutition study is performed utilizing thin liquid barium, barium thick applesauce, and barium coated cracker. COMPARISON: None. Total fluoroscopy time: 1 minute 50 seconds. 2. Images: None. Real-time fluoroscopic control was provided to speech pathology. FINDINGS: Edentulous. The oral and pharyngeal phases show satisfactory initiation and propagation with all moda lities tested. Normal mastication is seen with solid modalities tested. There is a single episode o f transient penetration with thin liquids. Otherwise, no evidence for aspiration with any modality te sted. No significant pharyngeal residue was appreciated. A calcification projecting in the pharyngea l reason probably carotid calcification. IMPRESSION: Functional swallow. Please refer to speech therapist notes for further details if necessary.
--- NOTE | 2017-03-09 18:53 | P.PN ---
Subjective Progress Note Date: 03/09/17 This patient is a 86-year-old male admitted to hospital with episode of expressive aphasia and worsening dementia. He was evaluated in the emergency room and his NIH stroke scale was 1.0. He was not a candidate for TPA as his INR was 4.6. NIH score was 1.0. He was admitted to hospital for further evaluation. His computed tomography scan of the brain revealed a questionable hypoattenuation in the left frontal lobe. For this reason he was sent for MRI of the brain which revealed no evidence of acute stroke. These areas are felt to be old in nature and represent old infarctions. Patient has history of underlying dementia. He is being considered for possible discharge tomorrow. He is to undergo a modified barium swallow study for further evaluation of dysphagia. We will await further recommendations from gastroenterology. Patient has a history of chronic atrial fibrillation. His Coumadin is currently on hold. His INR today is 4.1. He underwent a bone scan for evaluation of possible osteolytic lesion of the T3 spine. His bone scan came back negative. Patient otherwise seems to be pleasantly confused. He has been talking with family but oftentimes goes off tangent. We will continue to monitor his progress closely. Case was discussed with the patient's who was at bedside today. We will continue to follow him closely during this admission. Objective - Vital Signs Vital signs: Vital Signs Temp 97.0 F L 03/09/17 12:00 Pulse 98 03/09/17 12:00 Resp 18 03/09/17 12:00 BP 141/66 03/09/17 12:00 Pulse Ox 97 03/09/17 12:00 Intake & Output 03/08/17 03/09/17 03/09/17 18:59 06:59 18:59 Intake Total 220 50 237 Output Total 100 200 100 Balance 120 -150 137 Weight 81.5 kg 81.5 kg Intake: Intake, IV Titration 50 Amount Piperacillin-Tazobactam 3 50 .375 gm In Dextrose/Water 1 50ml.bag @ 12.5 mls/hr IVPB Q8HR [facility] Rx#: [id number] Oral 220 237 Output: Urine 100 200 100 Other: Voiding Method Toilet Urinal Urinal Diaper Diaper # Voids 1 1 1 # Bowel Movements 1 1 - Exam Physical examination: PHYSICAL EXAMINATION: Patient is resting comfortably in bed. Patient is pleasantly confused. VITAL SIGNS: Blood pressure is [141/65]. Heart rate is [98]. Respiration is [18] . Temperature is [97.0]. HEENT: Head is atraumatic, neck is supple, there were no carotid bruits. CHEST: Lungs are clear to auscultation and percussion. CARDIAC: S1, S2 normal rate and rhythm. There is no murmur. ABDOMEN: Soft and nontender. Bowel sounds are present. EXTREMITIES: There is no pedal edema. Peripheral pulses are present. Neurological examination: Patient's neurological examination is unchanged from yesterday. - Labs CBC & Chem 7: 03/09/17 05:37 03/09/17 05:37 Labs: Abnormal Lab Results - Last 24 Hours (Table) 03/09/17 03/09/17 03/09/17 Range/Units 05:37 05:37 05:37 RBC 3.64 L (4.30-5.90) m/uL Hgb 11.0 L (13.0-17.5) gm/dL Hct 35.8 L (39.0-53.0) % MCHC 30.8 L (31.0-37.0) g/dL Haptoglobin 305.0 H (31.2-198.0) mg/dL PT 37.2 H (9.0-12.0) sec INR 4.1 H (<1.2) Chloride (98-107) mmol/L Iron 22 L (65-175) ug/dL TIBC 158 L (228-460) ug/dL Iron Saturation 13.92 L (15.00-50.00) Ferritin 602.5 H (22.0-322.0) ng/mL Alkaline Phosphatase (38-126) U/L Total Protein (6.3-8.2) g/dL Albumin (3.5-5.0) g/dL 03/09/17 Range/Units 05:37 RBC (4.30-5.90) m/uL Hgb (13.0-17.5) gm/dL Hct (39.0-53.0) % MCHC (31.0-37.0) g/dL Haptoglobin (31.2-198.0) mg/dL PT (9.0-12.0) sec INR (<1.2) Chloride 109 H (98-107) mmol/L Iron (65-175) ug/dL TIBC (228-460) ug/dL Iron Saturation (15.00-50.00) Ferritin (22.0-322.0) ng/mL Alkaline Phosphatase 150 H (38-126) U/L Total Protein 5.6 L (6.3-8.2) g/dL Albumin 2.4 L (3.5-5.0) g/dL Microbiology - Last 24 Hours (Table) 03/07/17 14:59 Blood Culture - Preliminary Blood No Growth after 48 hours 03/07/17 15:35 Urine Culture - Final Urine,Catheterized Assessment and Plan (1) Acute ischemic left MCA stroke Current Visit: Yes Status: Acute Code(s): I63.512 - CEREB INFRC D/T UNSP OCCLS OR STENOS OF LEFT MID CEREB ART SNOMED Code(s): 236217549 (2) Acute encephalopathy Current Visit: Yes Status: Acute Code(s): G93.40 - ENCEPHALOPATHY, UNSPECIFIED SNOMED Code(s): 6411736 (3) Dementia Current Visit: Yes Status: Acute Code(s): F03.90 - UNSPECIFIED DEMENTIA WITHOUT BEHAVIORAL DISTURBANCE SNOMED Code(s): 56025264 (4) History of prostate cancer Current Visit: Yes Status: Acute Code(s): Z85.46 - PERSONAL HISTORY OF MALIGNANT NEOPLASM OF PROSTATE SNOMED Code(s): 704440892 (5) Fever Current Visit: Yes Status: Acute Code(s): R50.9 - FEVER, UNSPECIFIED SNOMED Code(s): 316666769 Plan: This patient is a 86-year-old male who was initially admitted to hospital with evidence of expressive aphasia and confusion. He has evidence suggesting a underlying metabolic encephalopathy as well as history of dementia. He underwent MRI of the brain which came back negative for any evidence of acute stroke. He was seen by speech therapy and underwent a modified barium swallow. Results are pending. Bone scan came back negative for any osteolytic lesion at T3. His Coumadin is on hold as his INR today is 4.1. He has a history of chronic atrial fibrillation. Goal is to maintain his INR between 2-3. Patient is pleasantly confused but does answer some questions appropriately. He is being considered for possible discharge home tomorrow. We will continue to monitor his neurological status closely during this admission. His overall prognosis at this time remains guarded. Case was discussed at length with the patient's who is at bedside. All of her questions were answered. She is wearing his guarded condition.
[2017-03-09] MEDS: DILTIAZEM ORAL 60 MG TAB PO SCH (21:28)
[2017-03-09] MEDS: DONEPEZIL 10 MG TAB PO SCH (21:28)
[2017-03-10 06:54] LABS: HCT 35.5 % (39.0-53.0); HGB 11.1 gm/dL (13.0-17.5); Hypochromasia Slight; MCH 29.9 pg (25.0-35.0); MCHC 31.1 g/dL (31.0-37.0); MCV 96.1 fL (80.0-100.0); Mean Platelet Volume 7.6; Platelet Count 407 k/uL (150-450); RDW 13.7 % (11.5-15.5); WBC 5.9 k/uL (3.8-10.6)
[2017-03-10 07:03] LABS: ALT 26 U/L (21-72); AST 30 U/L (17-59); Albumin 2.3 g/dL (3.5-5.0); Alkaline Phosphatase 157 U/L (38-126); Anion Gap 8 mmol/L; Blood Urea Nitrogen 23 mg/dL (9-20); Calcium 9.3 mg/dL (8.4-10.2); Carbon Dioxide 25 mmol/L (22-30); Chloride 109 mmol/L (98-107); Glucose 106 mg/dL (74-99); Potassium 4.4 mmol/L (3.5-5.1); Sodium 142 mmol/L (137-145); Total Bilirubin 1.2 mg/dL (0.2-1.3); Total Protein 5.5 g/dL (6.3-8.2)
[2017-03-10 07:05] LABS: INR 3.2 (<1.2); Prothrombin Time 28.4 sec (9.0-12.0)
[2017-03-10] MEDS: PIPERACILLIN-TAZOBACTAM 3.375 GM in DEXTROSE/WATER 1 50ML.BAG IVPB SCH ×3 (09:14→23:29)
[2017-03-10] MEDS: TIMOLOL 0.5% OPHTH DROPS 5 ML BTL BOTH EYES SCH (09:14)
[2017-03-10] MEDS: HEPARIN SODIUM,PORCINE 5,000 UNIT/ML 1 ML VIAL SQ SCH ×3 (09:14→23:30)
[2017-03-10] MEDS: CALCITRIOL 0.25 MCG CAP PO SCH (09:15)
[2017-03-10] MEDS: azaTHIOprine 50 MG TAB PO SCH (09:15)
[2017-03-10] MEDS: FAMOTIDINE 20 MG TAB PO SCH (09:15)
--- NOTE | 2017-03-10 12:18 | P.PN ---
Subjective Progress Note Date: 03/10/17 Principal diagnosis: Acute CVA, dysphagia 86-year-old male admitted with expressive aphasia possible acute CVA. Anticoagulation with warfarin. Evaluated yesterday in regards to suspected oropharyngeal dysphagia. Seen by speech pathology dysphagia 2 diet advised. Presently reporting pill dysphagia in the posterior pharynx; sitting in a bedside chair somewhat argumentative will not follow commands drink liquids or take additional medications or diet. Family at bedside. Confused. INR 3.2. His speech is clear but conversation goes off on tangents. No evidence of choking drooling coughing. Objective - Vital Signs Vital signs: Vital Signs Temp 97.3 F L 03/10/17 08:00 Pulse 99 03/10/17 08:00 Resp 16 03/10/17 08:00 BP 111/73 03/10/17 08:00 Pulse Ox 98 03/10/17 08:00 Intake & Output 03/09/17 03/10/17 03/10/17 18:59 06:59 18:59 Intake Total 237 50 290 Output Total 100 300 Balance 137 -250 290 Weight 81.5 kg 81.9 kg Intake: IV 50 50 Piperacillin-Tazobactam 3 50 50 .375 gm In Dextrose/Water 1 50ml.bag @ 12.5 mls/hr IVPB Q8HR [facility] Rx#: [id number] Oral 237 240 Output: Urine 100 300 Other: Voiding Method Urinal Urinal Diaper Diaper # Voids 1 1 # Bowel Movements 1 1 - Exam General appearance: The patient is alert, confused argumentative sitting in a bedside chair in no acute distress. HET: Head is normocephalic and atraumatic. Pupils are equal and reactive. Oropharynx is clear without lesions. Neck: Supple without lymphadenopathy. Trachea midline. Heart: S1 S2. Regular rate and rhythm. Lungs: No crackles or wheezes are heard. Abdomen: Soft, nontender, nondistended with bowel sounds. No peritoneal signs. No palpable organomegaly or masses. Extremities: Normal skin color and turgor. No cyanosis, rash, ulceration, clubbing, or edema. Radial and pedal pulses are 2/4 bilaterally. Neurological: No focal deficits. Strength and sensation are grossly intact. - Labs CBC & Chem 7: 03/10/17 06:29 03/10/17 06:29 Labs: Abnormal Lab Results - Last 24 Hours (Table) 03/09/17 03/10/17 03/10/17 Range/Units 05:37 06:29 06:29 RBC 3.70 L (4.30-5.90) m/uL Hgb 11.1 L (13.0-17.5) gm/dL Hct 35.5 L (39.0-53.0) % Haptoglobin 305.0 H (31.2-198.0) mg/dL PT 28.4 H (9.0-12.0) sec INR 3.2 H (<1.2) Chloride (98-107) mmol/L BUN (9-20) mg/dL Glucose (74-99) mg/dL Iron 22 L (65-175) ug/dL TIBC 158 L (228-460) ug/dL Iron Saturation 13.92 L (15.00-50.00) Ferritin 602.5 H (22.0-322.0) ng/mL Alkaline Phosphatase (38-126) U/L Total Protein (6.3-8.2) g/dL Albumin (3.5-5.0) g/dL 03/10/17 Range/Units 06:29 RBC (4.30-5.90) m/uL Hgb (13.0-17.5) gm/dL Hct (39.0-53.0) % Haptoglobin (31.2-198.0) mg/dL PT (9.0-12.0) sec INR (<1.2) Chloride 109 H (98-107) mmol/L BUN 23 H (9-20) mg/dL Glucose 106 H (74-99) mg/dL Iron (65-175) ug/dL TIBC (228-460) ug/dL Iron Saturation (15.00-50.00) Ferritin (22.0-322.0) ng/mL Alkaline Phosphatase 157 H (38-126) U/L Total Protein 5.5 L (6.3-8.2) g/dL Albumin 2.3 L (3.5-5.0) g/dL Microbiology - Last 24 Hours (Table) 03/07/17 14:59 Blood Culture - Preliminary Blood No Growth after 48 hours Assessment and Plan Assessment: Impression: 1. Oropharyngeal dysphagia. 2. Acute ischemic left MCA stroke. 3. 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 4. Dementia. 5. Warfarin-induced coagulopathy. Recommendations: 1. Nursing staff and family is trying to convince patient to drink some liquids /ice chips. Endoscopic exam is not planned at this time secondary to coagulopathy. Hopefully if patient's disposition settles down he'll be more receptive to drinking some fluids and/or applesauce follow commands in order to reevaluate his supposed pill dysphagia. GI prophylaxis. Aspiration precautions. Assessment and plan a care discussed with Dr. Loja
--- NOTE | 2017-03-10 13:29 | P.PN ---
Subjective Progress Note Date: 03/10/17 This is a pleasant 86-year-old gentleman patient of Dr. Banuelos. He has underlying history of CVA in 2015 with resultant speech problem mainly expressive aphasia, dementia, hypertension, CK D stage III, prostate cancer with seed implant, long-term anticoagulation secondary to chronic atrial fibrillation, GERD, admitted to the hospital secondary to weakness and mental status changes. According to the , patient was shaky, has shortness of breath with dyspnea and exertion, requiring his ER evaluation. According to the has had dysphagia for the past 4 weeks to both foods and liquids and pills, he was scheduled to have an EGD on March 22 by GI. Patient was subsequently seen in the emergency room and was noted to be febrile, temperature of 101.4, agent has had diarrhea for a few days watery, no dysuria, In the emergency room, double basic count of 5.9, hemoglobin 10.9, INR all 4.6 urinalysis is negative, influenza test is negative, chest x-ray shows interstitial lung disease without any acute cardiopulmonary processes, there is a metastatic disease skeletal structures noted in routine x-ray. Patient was seen by Dr. Arroyo neurology during ER presentation, NIH score of 1, not requiring any treatment of TPA as his INR is 4.6 and NIH score 1, CAT scan of the brain shows wedge-shaped hypoattenuation in the left frontal lobe suggesting subacute to chronic ischemia, evidence of old cerebellar infarct on the left side. 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 There is also suggestion off sclerotic foci in the upper thoracic spine T2 level suggesting possibility for she blastic metastasis. Bone scan was recommended, and vascular consultation was recommended by neurology. GI consult for the dysphagia. When patient was seen, patient is back to his mentation, speech seems clear, has confusion as noted to answers that are off tangent for most part he remains on track regarding to his responses. Patient currently is on IV Zosyn for suspected aspiration pneumonia however chest x-ray did not reveal any acute infiltrates him a CT of the chest high resolution to evaluate for pulmonary fibrosis as there is notation of interstitial lung disease noted., C. diff for diarrhea, blood cultures had been obtained, 03/09:patient has been seen by GI and patient may need EGD.EEG is mildly abnormal in a diffuse fashion due to slowing of the EEG background. It failed to reveal any focal, lateralizing or epileptiform abnormalities. MRI of the brain shows chronic small vessel ischemic changes and age-related atrophy. Bone scan does not show metabolically active osseous medistatic disease. CAT scan of the thorax shows new interstitial pulmonary infiltrates compared to last exam which was October 2016. No evidence of pulmonary mass. Moderate cardiomegaly. Heart is increased compared to last exam. No bronchial obstruction. No suspected aspiration pneumonia. Speech therapy has evaluated at the bedside and recommended ground diet with progression to regular diet as tolerated. Patient has been evaluated by PT and OT with recommendations for home. Social work has arranged [facility] home care.INR is 4.1, alkaline phosphatase 150.urine culture is finalized with no growth and blood culture showing no growth after 24 hours. Modified barium swallow for today. EGD hopefully tomorrow. 03/10: Patient is complaining that he feels like a pill stuck in the back of his throat in the center. Patient is refusing to take any water or apple sauce. Contacted GI with no plan for any intervention today. Patient will be transferred to [facility] floor. Objective - Vital Signs Vital signs: Vital Signs Temp 98.4 F 03/10/17 04:00 Pulse 93 03/10/17 04:00 Resp 18 03/10/17 04:00 BP 115/70 03/10/17 04:00 Pulse Ox 94 L 03/10/17 04:00 Intake & Output 03/09/17 03/10/17 03/10/17 18:59 06:59 18:59 Intake Total 237 50 Output Total 100 300 Balance 137 -250 Weight 81.5 kg 81.9 kg Intake: IV 50 Piperacillin-Tazobactam 3 50 .375 gm In Dextrose/Water 1 50ml.bag @ 12.5 mls/hr IVPB Q8HR [facility] Rx#: [id number] Oral 237 Output: Urine 100 300 Other: Voiding Method Urinal Diaper # Voids 1 1 # Bowel Movements 1 - Exam General appearance: cooperative, no acute distress, obese - EENT Eyes: anicteric sclerae, EOMI, PERRLA, dentition normal, normal appearance ENT: NA/AT, normal oropharynx - Neck Neck: normal ROM - Respiratory Respiratory: bilateral: CTA, negative: diminished, dullness - Cardiovascular Rhythm: regular Heart sounds: normal: S1, S2 Abnormal Heart Sounds: no systolic murmur, no diastolic murmur, no rub, no S3 Gallop, no S4 Gallop, no click, no other - Gastrointestinal General gastrointestinal: normal bowel sounds, soft - Integumentary Integumentary: decreased turgor, normal - Musculoskeletal Musculoskeletal: generalized weakness, strength equal bilaterally - Psychiatric Psychiatric: A&O x's 3, appropriate affect - Labs CBC & Chem 7: 03/10/17 06:29 03/10/17 06:29 Labs: Abnormal Lab Results - Last 24 Hours (Table) 03/09/17 03/10/17 03/10/17 Range/Units 05:37 06:29 06:29 RBC 3.70 L (4.30-5.90) m/uL Hgb 11.1 L (13.0-17.5) gm/dL Hct 35.5 L (39.0-53.0) % Haptoglobin 305.0 H (31.2-198.0) mg/dL PT 28.4 H (9.0-12.0) sec INR 3.2 H (<1.2) Chloride (98-107) mmol/L BUN (9-20) mg/dL Glucose (74-99) mg/dL Iron 22 L (65-175) ug/dL TIBC 158 L (228-460) ug/dL Iron Saturation 13.92 L (15.00-50.00) Ferritin 602.5 H (22.0-322.0) ng/mL Alkaline Phosphatase (38-126) U/L Total Protein (6.3-8.2) g/dL Albumin (3.5-5.0) g/dL 03/10/17 Range/Units 06:29 RBC (4.30-5.90) m/uL Hgb (13.0-17.5) gm/dL Hct (39.0-53.0) % Haptoglobin (31.2-198.0) mg/dL PT (9.0-12.0) sec INR (<1.2) Chloride 109 H (98-107) mmol/L BUN 23 H (9-20) mg/dL Glucose 106 H (74-99) mg/dL Iron (65-175) ug/dL TIBC (228-460) ug/dL Iron Saturation (15.00-50.00) Ferritin (22.0-322.0) ng/mL Alkaline Phosphatase 157 H (38-126) U/L Total Protein 5.5 L (6.3-8.2) g/dL Albumin 2.3 L (3.5-5.0) g/dL Microbiology - Last 24 Hours (Table) 03/07/17 14:59 Blood Culture - Preliminary Blood No Growth after 48 hours Assessment and Plan Plan: 1. Acute metabolic encephalopathy with underlying history of dementia, presenting with fever and dyspnea, diarrhea, prior history of dysphagia. Patient has been seen by neurology to evaluate for acute CVA, MRI of the brain was performed showing chronic ischemic disease with old left frontal infarct, patient is currently on Zosyn, speech is following the patient secondary to dysphagia, GI has been consulted, C. difficile toxin to check for his diarrhea 2. 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 3. Dysphagia oropharyngeal, present prior to admission for the past 4 weeks, consult will be made to GI, and speech recommended ground diet with aspiration precautions. Modified barium swallow today. EGD per GI. 4. History of post left sided colectomy 03/[address] 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 5. Chronic kidney disease stage II: Post renal transplant continue Imuran and immunosuppressive agent. 6. Chronic A. fib on long-term anticoagulation with an elevated INR noted, Coumadin would be titrated based on his requirements to keep a goal INR between 2-3 monitor for ongoing GI losses normally patient takes 2.5 mg Coumadin every day except 5 mg Monday 7. Hypercoagulopathy. Coumadin is on hold. 8. Hypertension. Continue diltiazem 60 mg daily at bedtime 9. Unspecified gout: patient is no longer on allopurinol 100 mg daily. 10. GERD: Continue Pepcid 20 mg daily resume medication. 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 Dementia: On Aricept 10 mg at bedtime 13. Mild anemia: Continue iron and multivitamin supplement. Iron levels will be done, including haptoglobin to evaluate hemolysis, Hemoccult blood stools 14. DVT prophylaxis: on Coumadin for long-term anticoagulation 15. GI prophylaxis: Pepcid. CODE STATUS: NO code. discharge plan: Home with [facility] Impression and plan of care have been directed as dictated by the signing physician. eBlen Dodson nurse practitioner acting as scribe for signing physician.
[2017-03-10] MEDS: PRAVASTATIN SODIUM 20 MG TAB PO SCH (20:04)
[2017-03-10] MEDS: DILTIAZEM ORAL 60 MG TAB PO SCH (20:05)
[2017-03-10] MEDS: DONEPEZIL 10 MG TAB PO SCH (20:05)
--- NOTE | 2017-03-10 21:03 | P.PN ---
Subjective Progress Note Date: 03/10/17 This patient is a 86-year-old male admitted to hospital with episode of expressive aphasia and worsening dementia. He was evaluated in the emergency room and his NIH stroke scale was 1.0. He was not a candidate for TPA as his INR was 4.6. NIH score was 1.0. He was admitted to hospital for further evaluation. His computed tomography scan of the brain revealed a questionable hypoattenuation in the left frontal lobe. For this reason he was sent for MRI of the brain which revealed no evidence of acute stroke. These areas are felt to be old in nature and represent old infarctions. Patient has history of underlying dementia. He is being considered for possible discharge tomorrow. He is to undergo a modified barium swallow study for further evaluation of dysphagia. We will await further recommendations from gastroenterology. Patient has a history of chronic atrial fibrillation. His Coumadin is currently on hold. His INR today is 3.2. He underwent a bone scan for evaluation of possible osteolytic lesion of the T3 spine. His bone scan came back negative. Patient otherwise seems to be pleasantly confused. He has been talking with family but oftentimes goes off tangent. The patient is complaining of food getting stuck in the throat. Gastroenterology is aware of this. We will continue to monitor his progress closely. Case was discussed with the patient's who was at bedside today. We will continue to follow him closely during this admission. Objective - Vital Signs Vital signs: Vital Signs Temp 97.3 F L 03/10/17 08:00 Pulse 99 03/10/17 08:00 Resp 16 03/10/17 08:00 BP 111/73 03/10/17 08:00 Pulse Ox 98 03/10/17 08:00 Intake & Output 03/09/17 03/10/17 03/10/17 18:59 06:59 18:59 Intake Total 237 50 240 Output Total 100 300 Balance 137 -250 240 Weight 81.5 kg 81.9 kg Intake: IV 50 Piperacillin-Tazobactam 3 50 .375 gm In Dextrose/Water 1 50ml.bag @ 12.5 mls/hr IVPB Q8HR [facility] Rx#: [id number] Oral 237 240 Output: Urine 100 300 Other: Voiding Method Urinal Urinal Diaper Diaper # Voids 1 1 # Bowel Movements 1 1 - Exam Physical examination: PHYSICAL EXAMINATION: Patient is resting comfortably in bed. Patient is pleasantly confused. VITAL SIGNS: Blood pressure is [135/65]. Heart rate is [94]. Respiration is [16] . Temperature is [97.8]. HEENT: Head is atraumatic, neck is supple, there were no carotid bruits. CHEST: Lungs are clear to auscultation and percussion. CARDIAC: S1, S2 normal rate and rhythm. There is no murmur. ABDOMEN: Soft and nontender. Bowel sounds are present. EXTREMITIES: There is no pedal edema. Peripheral pulses are present. Neurological examination: Patient's neurological examination is unchanged from yesterday. - Labs CBC & Chem 7: 03/10/17 06:29 03/10/17 06:29 Labs: Abnormal Lab Results - Last 24 Hours (Table) 03/09/17 03/10/17 03/10/17 Range/Units 05:37 06:29 06:29 RBC 3.70 L (4.30-5.90) m/uL Hgb 11.1 L (13.0-17.5) gm/dL Hct 35.5 L (39.0-53.0) % Haptoglobin 305.0 H (31.2-198.0) mg/dL PT 28.4 H (9.0-12.0) sec INR 3.2 H (<1.2) Chloride (98-107) mmol/L BUN (9-20) mg/dL Glucose (74-99) mg/dL Iron 22 L (65-175) ug/dL TIBC 158 L (228-460) ug/dL Iron Saturation 13.92 L (15.00-50.00) Ferritin 602.5 H (22.0-322.0) ng/mL Alkaline Phosphatase (38-126) U/L Total Protein (6.3-8.2) g/dL Albumin (3.5-5.0) g/dL 03/10/17 Range/Units 06:29 RBC (4.30-5.90) m/uL Hgb (13.0-17.5) gm/dL Hct (39.0-53.0) % Haptoglobin (31.2-198.0) mg/dL PT (9.0-12.0) sec INR (<1.2) Chloride 109 H (98-107) mmol/L BUN 23 H (9-20) mg/dL Glucose 106 H (74-99) mg/dL Iron (65-175) ug/dL TIBC (228-460) ug/dL Iron Saturation (15.00-50.00) Ferritin (22.0-322.0) ng/mL Alkaline Phosphatase 157 H (38-126) U/L Total Protein 5.5 L (6.3-8.2) g/dL Albumin 2.3 L (3.5-5.0) g/dL Microbiology - Last 24 Hours (Table) 03/07/17 14:59 Blood Culture - Preliminary Blood No Growth after 48 hours Assessment and Plan (1) Acute ischemic left MCA stroke Current Visit: Yes Status: Acute Code(s): I63.512 - CEREB INFRC D/T UNSP OCCLS OR STENOS OF LEFT MID CEREB ART SNOMED Code(s): 506870098 (2) Acute encephalopathy Current Visit: Yes Status: Acute Code(s): G93.40 - ENCEPHALOPATHY, UNSPECIFIED SNOMED Code(s): 4294030 (3) Dementia Current Visit: Yes Status: Acute Code(s): F03.90 - UNSPECIFIED DEMENTIA WITHOUT BEHAVIORAL DISTURBANCE SNOMED Code(s): 68239531 (4) History of prostate cancer Current Visit: Yes Status: Acute Code(s): Z85.46 - PERSONAL HISTORY OF MALIGNANT NEOPLASM OF PROSTATE SNOMED Code(s): 553178280 (5) Fever Current Visit: Yes Status: Acute Code(s): R50.9 - FEVER, UNSPECIFIED SNOMED Code(s): 278043047 Plan: This patient is a 86-year-old male who was initially admitted to hospital with evidence of expressive aphasia and confusion. He has evidence suggesting a underlying metabolic encephalopathy as well as history of dementia. He underwent MRI of the brain which came back negative for any evidence of acute stroke. He was seen by speech therapy and underwent a modified barium swallow. Results are pending. Bone scan came back negative for any osteolytic lesion at T3. His Coumadin is on hold as his INR today is 3.2. He has a history of chronic atrial fibrillation. Goal is to maintain his INR between 2-3. Patient is pleasantly confused but does answer some questions appropriately. He is being considered for possible discharge home soon. We will continue to monitor his neurological status closely during this admission. he is complaining ofmild dysphagia. He does say that food is getting stuck in his throat. Gastroenterology is aware of this finding. His overall prognosis at this time remains guarded. Case was discussed at length with the patient's who is at bedside. All of her questions were answered. She is wearing his guarded condition. We are awaiting possible discharge planning.
[2017-03-11] MEDS: HEPARIN SODIUM,PORCINE 5,000 UNIT/ML 1 ML VIAL SQ SCH ×3 (08:15→22:57)
[2017-03-11] MEDS: CALCITRIOL 0.25 MCG CAP PO SCH (08:16)
[2017-03-11] MEDS: PIPERACILLIN-TAZOBACTAM 3.375 GM in DEXTROSE/WATER 1 50ML.BAG IVPB SCH ×3 (08:16→22:57)
[2017-03-11] MEDS: FAMOTIDINE 20 MG TAB PO SCH (08:16)
[2017-03-11] MEDS: TIMOLOL 0.5% OPHTH DROPS 5 ML BTL BOTH EYES SCH (08:16)
[2017-03-11] MEDS: azaTHIOprine 50 MG TAB PO SCH (08:16)
[2017-03-11 08:39] LABS: HCT 36.2 % (39.0-53.0); HGB 11.3 gm/dL (13.0-17.5); Hypochromasia Slight; MCH 30.2 pg (25.0-35.0); MCHC 31.2 g/dL (31.0-37.0); Mean Platelet Volume 7.2; Platelet Count 387 k/uL (150-450); RBC 3.73 m/uL (4.30-5.90); RDW 13.7 % (11.5-15.5); WBC 6.7 k/uL (3.8-10.6)
[2017-03-11 08:43] LABS: INR 2.7 (<1.2); Prothrombin Time 24.1 sec (9.0-12.0)
[2017-03-11 09:16] LABS: ALT 24 U/L (21-72); AST 41 U/L (17-59); Albumin 2.2 g/dL (3.5-5.0); Alkaline Phosphatase 154 U/L (38-126); Anion Gap 8 mmol/L; Blood Urea Nitrogen 23 mg/dL (9-20); Calcium 9.2 mg/dL (8.4-10.2); Carbon Dioxide 23 mmol/L (22-30); Chloride 108 mmol/L (98-107); Glucose 96 mg/dL (74-99); Potassium 4.7 mmol/L (3.5-5.1); Sodium 139 mmol/L (137-145); Total Bilirubin 1.3 mg/dL (0.2-1.3); Total Protein 5.4 g/dL (6.3-8.2)
--- NOTE | 2017-03-11 10:14 | PN ---
PROGRESS NOTE DATE OF SERVICE: 03/11/2017 Patient is an 86-year-old white male admitted to the hospital 3 days ago with an acute ischemic stroke and Neurology following the patient closely. We were consulted for some oropharyngeal dysphagia. He underwent modified barium swallow and speech pathology evaluation and patient presently able to tolerate diet reasonably well. He had an episode of dysphagia yesterday after he swallowed a pill, but that since has resolved. This morning he is having breakfast, tolerating well. He denies any symptoms. PHYSICAL EXAMINATION: On physical examination, he appears comfortable, in no apparent distress. Vital signs are stable. Blood pressure is 110/64, pulse rate 97, temperature 99.5. HEENT EXAMINATION: Unremarkable. Conjunctivae pink. Sclerae anicteric. Oral cavity, no lesions. NECK: No JVD or lymph node enlargement. CHEST: Clear to auscultation. HEART: Regular rate and rhythm. ABDOMEN: Soft, obese. Bowel sounds are positive. No organomegaly. EXTREMITIES: No pedal edema. SKIN: No rashes. NEURO: Awake and oriented. Modified barium swallow did not show any evidence of aspiration. IMPRESSION: Oropharyngeal dysphagia secondary to recent cerebrovascular accident. Recent modified barium swallow showed no evidence of aspiration. The patient on a modified dysphagia diet, tolerating well. RECOMMENDATION: 1. At this time continue diet recommendations as per the dietitian. 2. No need for any endoscopy intervention or PEG tube placement. At this time, we will sign off. Please call us if needed. Thank you for this consultation. MMODL / IJN: [id number] /
--- NOTE | 2017-03-11 10:34 | P.PN ---
Subjective Progress Note Date: 03/11/17 This is a pleasant 86-year-old gentleman patient of Dr. Banuelos. He has underlying history of CVA in 2015 with resultant speech problem mainly expressive aphasia, dementia, hypertension, CK D stage III, prostate cancer with seed implant, long-term anticoagulation secondary to chronic atrial fibrillation, GERD, admitted to the hospital secondary to weakness and mental status changes. According to the , patient was shaky, has shortness of breath with dyspnea and exertion, requiring his ER evaluation. According to the has had dysphagia for the past 4 weeks to both foods and liquids and pills, he was scheduled to have an EGD on March 22 by GI. Patient was subsequently seen in the emergency room and was noted to be febrile, temperature of 101.4, agent has had diarrhea for a few days watery, no dysuria, In the emergency room, double basic count of 5.9, hemoglobin 10.9, INR all 4.6 urinalysis is negative, influenza test is negative, chest x-ray shows interstitial lung disease without any acute cardiopulmonary processes, there is a metastatic disease skeletal structures noted in routine x-ray. Patient was seen by Dr. Arroyo neurology during ER presentation, NIH score of 1, not requiring any treatment of TPA as his INR is 4.6 and NIH score 1, CAT scan of the brain shows wedge-shaped hypoattenuation in the left frontal lobe suggesting subacute to chronic ischemia, evidence of old cerebellar infarct on the left side. 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 There is also suggestion off sclerotic foci in the upper thoracic spine T2 level suggesting possibility for she blastic metastasis. Bone scan was recommended, and vascular consultation was recommended by neurology. GI consult for the dysphagia. When patient was seen, patient is back to his mentation, speech seems clear, has confusion as noted to answers that are off tangent for most part he remains on track regarding to his responses. Patient currently is on IV Zosyn for suspected aspiration pneumonia however chest x-ray did not reveal any acute infiltrates him a CT of the chest high resolution to evaluate for pulmonary fibrosis as there is notation of interstitial lung disease noted., C. diff for diarrhea, blood cultures had been obtained, 03/09:patient has been seen by GI and patient may need EGD.EEG is mildly abnormal in a diffuse fashion due to slowing of the EEG background. It failed to reveal any focal, lateralizing or epileptiform abnormalities. MRI of the brain shows chronic small vessel ischemic changes and age-related atrophy. Bone scan does not show metabolically active osseous medistatic disease. CAT scan of the thorax shows new interstitial pulmonary infiltrates compared to last exam which was October 2016. No evidence of pulmonary mass. Moderate cardiomegaly. Heart is increased compared to last exam. No bronchial obstruction. No suspected aspiration pneumonia. Speech therapy has evaluated at the bedside and recommended ground diet with progression to regular diet as tolerated. Patient has been evaluated by PT and OT with recommendations for home. Social work has arranged [facility] home care.INR is 4.1, alkaline phosphatase 150.urine culture is finalized with no growth and blood culture showing no growth after 24 hours. Modified barium swallow for today. EGD hopefully tomorrow. 03/10: Patient is complaining that he feels like a pill stuck in the back of his throat in the center. Patient is refusing to take any water or apple sauce. Contacted GI with no plan for any intervention today. Patient will be transferred to [facility] floor. 03/11: patient had sudden onset this morning of chills but no documented fever. There is tachycardia. Urine, urine culture, blood culture and chest x-ray will be ordered. Patient has had no further complaints of the pill being stuck in his throat.his white count is normal. INR today 2.7. Objective - Vital Signs Vital signs: Vital Signs Temp 99.6 F 03/11/17 07:00 Pulse 111 H 03/11/17 07:00 Resp 18 03/11/17 07:00 BP 94/57 03/11/17 07:00 Pulse Ox 97 03/11/17 07:00 Intake & Output 03/10/17 03/11/17 03/11/17 18:59 06:59 18:59 Intake Total 380 Balance 380 Intake: IV 50 Piperacillin-Tazobactam 3 50 .375 gm In Dextrose/Water 1 50ml.bag @ 12.5 mls/hr IVPB Q8HR [facility] Rx#: [id number] Oral 330 Other: Voiding Method Urinal Urinal Diaper Diaper # Voids 0 1 # Bowel Movements 0 - Exam General appearance: cooperative, no acute distress, obese - EENT Eyes: anicteric sclerae, EOMI, PERRLA, dentition normal, normal appearance ENT: NA/AT, normal oropharynx - Neck Neck: normal ROM - Respiratory Respiratory: bilateral: CTA, negative: diminished, dullness - Cardiovascular Rhythm: regular Heart sounds: normal: S1, S2 Abnormal Heart Sounds: no systolic murmur, no diastolic murmur, no rub, no S3 Gallop, no S4 Gallop, no click, no other - Gastrointestinal General gastrointestinal: normal bowel sounds, soft - Integumentary Integumentary: decreased turgor, normal - Musculoskeletal Musculoskeletal: generalized weakness, strength equal bilaterally - Psychiatric Psychiatric: A&O x's 3, appropriate affect - Labs CBC & Chem 7: 03/11/17 08:20 03/11/17 08:20 Labs: Abnormal Lab Results - Last 24 Hours (Table) 03/11/17 03/11/17 03/11/17 Range/Units 08:20 08:20 08:20 RBC 3.73 L (4.30-5.90) m/uL Hgb 11.3 L (13.0-17.5) gm/dL Hct 36.2 L (39.0-53.0) % PT 24.1 H (9.0-12.0) sec INR 2.7 H (<1.2) Chloride 108 H (98-107) mmol/L BUN 23 H (9-20) mg/dL Alkaline Phosphatase 154 H (38-126) U/L Total Protein 5.4 L (6.3-8.2) g/dL Albumin 2.2 L (3.5-5.0) g/dL Microbiology - Last 24 Hours (Table) 03/07/17 14:59 Blood Culture - Preliminary Blood No Growth after 72 hours Assessment and Plan Plan: 1. Acute metabolic encephalopathy with underlying history of dementia, presenting with fever and dyspnea, diarrhea, prior history of dysphagia. Patient has been seen by neurology to evaluate for acute CVA, MRI of the brain was performed showing chronic ischemic disease with old left frontal infarct, patient is currently on Zosyn, speech is following the patient secondary to dysphagia, GI has been consulted. urine, urine culture, blood culture, chest x- ray to be checked. 2. 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 3. Dysphagia oropharyngeal, present prior to admission for the past 4 weeks, consult will be made to GI, and speech recommended ground diet with aspiration precautions. Modified barium swallow today. EGD per GI. 4. History of post left sided colectomy 03/[address] 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 5. Chronic kidney disease stage II: Post renal transplant continue Imuran and immunosuppressive agent. 6. Chronic A. fib on long-term anticoagulation with an elevated INR noted, Coumadin would be titrated based on his requirements to keep a goal INR between 2-3 monitor for ongoing GI losses normally patient takes 2.5 mg Coumadin every day except 5 mg Monday 7. Hypercoagulopathy. Coumadin is on hold. 8. Hypertension. Continue diltiazem 60 mg daily at bedtime 9. Unspecified gout: patient is no longer on allopurinol 100 mg daily. 10. GERD: Continue Pepcid 20 mg daily resume medication. 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 Dementia: On Aricept 10 mg at bedtime 13. Mild anemia: Continue iron and multivitamin supplement. Iron levels will be done, including haptoglobin to evaluate hemolysis, Hemoccult blood stools 14. DVT prophylaxis: on Coumadin for long-term anticoagulation 15. GI prophylaxis: Pepcid. CODE STATUS: NO code. discharge plan: Home with [facility] Impression and plan of care have been directed as dictated by the signing physician. Belen Dodson nurse practitioner acting as scribe for signing physician.
--- NOTE | 2017-03-11 10:54 | XR ---
EXAMINATION TYPE: XR chest 2V DATE OF EXAM: 03/11/2017 HISTORY: fever. REFERENCE: Previous study dated 03/07/2017. FINDINGS: The heart is mildly enlarged. There is increased interstitial markings. There is no focal p neumonia or edema. IMPRESSION: MILD CARDIOMEGALY.
[2017-03-11 11:43] LABS: Appearance,Urine Clear (Clear); Bacteria,Urine Occasional /hpf; Bilirubin,Urine Negative (Negative); Blood,Urine Small (Negative); Color,Urine Yellow; Glucose,Urine (UA) Negative (Negative); Hyaline Casts,Urine 1 /lpf (0-2); Ketones,Urine Negative (Negative); Leukocyte Esterase,Urine Small (Negative); Mucus,Urine Rare /hpf; Nitrite,Urine Negative (Negative); PH, Urine 8.5 (5.0-8.0); Protein,Urine Trace (Negative); RBC,Urine 27 /hpf (0-5); Specific Gravity,Urine 1.019 (1.001-1.035); Squamous Epithelial Cell,Urine <1 /hpf (0-4); WBC,Urine 4 /hpf (0-5)
[2017-03-11] MEDS: ACETAMINOPHEN SUPPOSITORY 650 MG SUPP RECTAL PRN (16:00)
[2017-03-11] MEDS ORDERED: IBUPROFEN 200 MG TAB PO STA (18:28)
[2017-03-11] MEDS: DILTIAZEM ORAL 60 MG TAB PO SCH (20:03)
[2017-03-11] MEDS: DONEPEZIL 10 MG TAB PO SCH (20:06)
--- NOTE | 2017-03-11 20:21 | P.PN ---
Subjective Progress Note Date: 03/11/17 This patient is a 86-year-old male admitted to hospital with episode of expressive aphasia and worsening dementia. He was evaluated in the emergency room and his NIH stroke scale was 1.0. He was not a candidate for TPA as his INR was 4.6. NIH score was 1.0. He was admitted to hospital for further evaluation. His computed tomography scan of the brain revealed a questionable hypoattenuation in the left frontal lobe. For this reason he was sent for MRI of the brain which revealed no evidence of acute stroke. These areas are felt to be old in nature and represent old infarctions. Patient has history of underlying dementia. He is being considered for possible discharge tomorrow. He is to undergo a modified barium swallow study for further evaluation of dysphagia. We will await further recommendations from gastroenterology. Patient has a history of chronic atrial fibrillation. His Coumadin is currently on hold. His INR today is 3.2. He underwent a bone scan for evaluation of possible osteolytic lesion of the T3 spine. His bone scan came back negative. Patient otherwise seems to be pleasantly confused. He has been talking with family but oftentimes goes off tangent. The patient is complaining of food getting stuck in the throat. Gastroenterology is aware of this. his oral pharyngeal dysphagia has been evaluated by gastroenterology. His recent modified barium swallow study showed no evidence of aspiration. Patient does not require PEG tube placement at this time. He is being closely monitored for fever this evening. He has responded to Tylenol. Chest x-ray was negative for any acute findings. We will continue to monitor his progress closely. Case was discussed with the patient's who was at bedside today. We will continue to follow him closely during this admission. Objective - Vital Signs Vital signs: Vital Signs Temp 100.4 F H 03/11/17 16:59 Pulse 132 H 03/11/17 15:50 Resp 20 03/11/17 15:50 BP 131/72 03/11/17 15:50 Pulse Ox 94 L 03/11/17 15:50 Intake & Output 03/10/17 03/11/17 03/11/17 18:59 06:59 18:59 Intake Total 380 Output Total 400 Balance 380 -400 Intake: IV 50 Piperacillin-Tazobactam 3 50 .375 gm In Dextrose/Water 1 50ml.bag @ 12.5 mls/hr IVPB Q8HR [facility] Rx#: [id number] Oral 330 Output: Urine 400 Other: Voiding Method Urinal Urinal Diaper Diaper # Voids 0 1 4 # Bowel Movements 0 - Exam Physical examination: PHYSICAL EXAMINATION: Patient is resting comfortably in bed. Patient is pleasantly confused. VITAL SIGNS: Blood pressure is [131/72]. Heart rate is [132]. Respiration is [20 ]. Temperature is [102.3]. HEENT: Head is atraumatic, neck is supple, there were no carotid bruits. CHEST: Lungs are clear to auscultation and percussion. CARDIAC: S1, S2 normal rate and rhythm. There is no murmur. ABDOMEN: Soft and nontender. Bowel sounds are present. EXTREMITIES: There is no pedal edema. Peripheral pulses are present. Neurological examination: Patient's neurological examination is unchanged from yesterday. - Labs CBC & Chem 7: 03/11/17 08:20 03/11/17 08:20 Labs: Abnormal Lab Results - Last 24 Hours (Table) 03/11/17 03/11/17 03/11/17 Range/Units 08:20 08:20 08:20 RBC 3.73 L (4.30-5.90) m/uL Hgb 11.3 L (13.0-17.5) gm/dL Hct 36.2 L (39.0-53.0) % PT 24.1 H (9.0-12.0) sec INR 2.7 H (<1.2) Chloride 108 H (98-107) mmol/L BUN 23 H (9-20) mg/dL Alkaline Phosphatase 154 H (38-126) U/L Total Protein 5.4 L (6.3-8.2) g/dL Albumin 2.2 L (3.5-5.0) g/dL Urine pH (5.0-8.0) Urine Protein (Negative) Urine Blood (Negative) Ur Leukocyte Esterase (Negative) Urine RBC (0-5) /hpf Urine Bacteria (None) /hpf Urine Mucus (None) /hpf 03/11/17 Range/Units 11:25 RBC (4.30-5.90) m/uL Hgb (13.0-17.5) gm/dL Hct (39.0-53.0) % PT (9.0-12.0) sec INR (<1.2) Chloride (98-107) mmol/L BUN (9-20) mg/dL Alkaline Phosphatase (38-126) U/L Total Protein (6.3-8.2) g/dL Albumin (3.5-5.0) g/dL Urine pH 8.5 H (5.0-8.0) Urine Protein Trace H (Negative) Urine Blood Small H (Negative) Ur Leukocyte Esterase Small H (Negative) Urine RBC 27 H (0-5) /hpf Urine Bacteria Occasional H (None) /hpf Urine Mucus Rare H (None) /hpf Microbiology - Last 24 Hours (Table) 03/11/17 11:25 Urine Culture - Preliminary Urine,Clean Catch 03/07/17 14:59 Blood Culture - Preliminary Blood No Growth after 96 hours Assessment and Plan (1) Acute ischemic left MCA stroke Current Visit: Yes Status: Acute Code(s): I63.512 - CEREB INFRC D/T UNSP OCCLS OR STENOS OF LEFT MID CEREB ART SNOMED Code(s): 640536755 (2) Acute encephalopathy Current Visit: Yes Status: Acute Code(s): G93.40 - ENCEPHALOPATHY, UNSPECIFIED SNOMED Code(s): 0918298 (3) Dementia Current Visit: Yes Status: Acute Code(s): F03.90 - UNSPECIFIED DEMENTIA WITHOUT BEHAVIORAL DISTURBANCE SNOMED Code(s): 46455802 (4) History of prostate cancer Current Visit: Yes Status: Acute Code(s): Z85.46 - PERSONAL HISTORY OF MALIGNANT NEOPLASM OF PROSTATE SNOMED Code(s): 637938465 (5) Fever Current Visit: Yes Status: Acute Code(s): R50.9 - FEVER, UNSPECIFIED SNOMED Code(s): 455755403 Plan: this patient is a 86-year-old male admitted with history of underlying stroke and expressive aphasia and dementia. Patient found to have evidence on admission of altered mental status and confusion. He has evidence of a underlying metabolic encephalopathy and sepsis. He is currently being treated for sepsis and is on IV Zosyn. He underwent MRI of the brain which failed to reveal any evidence of acute stroke. He does have oropharyngeal dysphagia which has been evaluated by gastroenterology. He does not require PEG tube placement. His overall prognosis at this time remains guarded. He is showing signs of a diffuse metabolic encephalopathy concurrent with known history of underlying dementia. We will continue to follow his progress closely during this admission. Case was discussed at length with the patient's at bedside. All of her questions were answered. She is aware of his guarded condition.
[2017-03-12] MEDS: TIMOLOL 0.5% OPHTH DROPS 5 ML BTL BOTH EYES SCH (07:40)
[2017-03-12] MEDS: PIPERACILLIN-TAZOBACTAM 3.375 GM in DEXTROSE/WATER 1 50ML.BAG IVPB SCH ×3 (07:40→23:17)
[2017-03-12] MEDS: HEPARIN SODIUM,PORCINE 5,000 UNIT/ML 1 ML VIAL SQ SCH ×3 (07:40→23:18)
[2017-03-12] MEDS: FAMOTIDINE 20 MG TAB PO SCH (07:41)
[2017-03-12] MEDS: ACETAMINOPHEN SUPPOSITORY 650 MG SUPP RECTAL PRN ×2 (07:41→18:45)
[2017-03-12] MEDS: azaTHIOprine 50 MG TAB PO SCH (07:41)
[2017-03-12] MEDS: CALCITRIOL 0.25 MCG CAP PO SCH (07:41)
[2017-03-12 07:47] LABS: HCT 34.8 % (39.0-53.0); HGB 10.7 gm/dL (13.0-17.5); Hypochromasia Slight; MCH 30.1 pg (25.0-35.0); MCHC 30.8 g/dL (31.0-37.0); MCV 97.8 fL (80.0-100.0); Mean Platelet Volume 8.7; Platelet Count 331 k/uL (150-450); RBC 3.56 m/uL (4.30-5.90); RDW 14.9 % (11.5-15.5); WBC 6.1 k/uL (3.8-10.6)
[2017-03-12 08:09] LABS: INR 2.1 (<1.2); Prothrombin Time 18.9 sec (9.0-12.0)
[2017-03-12 08:13] LABS: Albumin 2.3 g/dL (3.5-5.0); Calcium 9.5 mg/dL (8.4-10.2); Potassium 4.5 mmol/L (3.5-5.1); Total Protein 5.3 g/dL (6.3-8.2)
[2017-03-12] MEDS ORDERED: OSELTAMIVIR 75 MG CAP PO SCH (09:30)
[2017-03-12] MEDS: SODIUM CHLORIDE 0.9% 1,000 ML IV SCH ×2 (09:34→12:19)
--- NOTE | 2017-03-12 10:27 | P.PN ---
Subjective Progress Note Date: 03/12/17 This is a pleasant 86-year-old gentleman patient of Dr. Banuelos. He has underlying history of CVA in 2015 with resultant speech problem mainly expressive aphasia, dementia, hypertension, CK D stage III, prostate cancer with seed implant, long-term anticoagulation secondary to chronic atrial fibrillation, GERD, admitted to the hospital secondary to weakness and mental status changes. According to the , patient was shaky, has shortness of breath with dyspnea and exertion, requiring his ER evaluation. According to the has had dysphagia for the past 4 weeks to both foods and liquids and pills, he was scheduled to have an EGD on March 22 by GI. Patient was subsequently seen in the emergency room and was noted to be febrile, temperature of 101.4, agent has had diarrhea for a few days watery, no dysuria, In the emergency room, double basic count of 5.9, hemoglobin 10.9, INR all 4.6 urinalysis is negative, influenza test is negative, chest x-ray shows interstitial lung disease without any acute cardiopulmonary processes, there is a metastatic disease skeletal structures noted in routine x-ray. Patient was seen by Dr. Arroyo neurology during ER presentation, NIH score of 1, not requiring any treatment of TPA as his INR is 4.6 and NIH score 1, CAT scan of the brain shows wedge-shaped hypoattenuation in the left frontal lobe suggesting subacute to chronic ischemia, evidence of old cerebellar infarct on the left side. 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 There is also suggestion off sclerotic foci in the upper thoracic spine T2 level suggesting possibility for she blastic metastasis. Bone scan was recommended, and vascular consultation was recommended by neurology. GI consult for the dysphagia. When patient was seen, patient is back to his mentation, speech seems clear, has confusion as noted to answers that are off tangent for most part he remains on track regarding to his responses. Patient currently is on IV Zosyn for suspected aspiration pneumonia however chest x-ray did not reveal any acute infiltrates him a CT of the chest high resolution to evaluate for pulmonary fibrosis as there is notation of interstitial lung disease noted., C. diff for diarrhea, blood cultures had been obtained, 03/09:patient has been seen by GI and patient may need EGD.EEG is mildly abnormal in a diffuse fashion due to slowing of the EEG background. It failed to reveal any focal, lateralizing or epileptiform abnormalities. MRI of the brain shows chronic small vessel ischemic changes and age-related atrophy. Bone scan does not show metabolically active osseous medistatic disease. CAT scan of the thorax shows new interstitial pulmonary infiltrates compared to last exam which was October 2016. No evidence of pulmonary mass. Moderate cardiomegaly. Heart is increased compared to last exam. No bronchial obstruction. No suspected aspiration pneumonia. Speech therapy has evaluated at the bedside and recommended ground diet with progression to regular diet as tolerated. Patient has been evaluated by PT and OT with recommendations for home. Social work has arranged [facility] home care.INR is 4.1, alkaline phosphatase 150.urine culture is finalized with no growth and blood culture showing no growth after 24 hours. Modified barium swallow for today. EGD hopefully tomorrow. 2/2: Patient is complaining that he feels like a pill stuck in the back of his throat in the center. Patient is refusing to take any water or apple sauce. Contacted GI with no plan for any intervention today. Patient will be transferred to [facility] floor. 23: patient had sudden onset this morning of chills but no documented fever. There is tachycardia. Urine, urine culture, blood culture and chest x-ray will be ordered. Patient has had no further complaints of the pill being stuck in his throat.his white count is normal. INR today 2.7. 2/: Patient continued to run fever overnight and influenza testing this morning is positive for A and patient will be started on Tamiflu, renal dosing. Patient's renal function has worsened today with BUN of 35 and creatinine 1.49. Zosyn decreased to every 12 hours and nephrology consult added as patient has a transplant. Discussed in detail with the family and recommended his get Tamiflu prophylactically. chest x-ray shows mild cardiomegaly. Objective - Vital Signs Vital signs: Vital Signs Temp 102.6 F H 03/12/17 07:00 Pulse 120 H 03/12/17 07:00 Resp 18 03/12/17 07:00 BP 120/67 03/12/17 07:00 Pulse Ox 93 L 03/12/17 07:00 Intake & Output 03/11/17 03/12/17 03/12/17 18:59 06:59 18:59 Output Total 400 Balance -400 Weight 82 kg Output: Urine 400 Other: Voiding Method Urinal Diaper # Voids 4 4 - Exam General appearance: cooperative, no acute distress, obese - EENT Eyes: anicteric sclerae, EOMI, PERRLA, dentition normal, normal appearance ENT: NA/AT, normal oropharynx - Neck Neck: normal ROM - Respiratory Respiratory: bilateral: CTA, negative: diminished, dullness - Cardiovascular Rhythm: regular Heart sounds: normal: S1, S2 Abnormal Heart Sounds: no systolic murmur, no diastolic murmur, no rub, no S3 Gallop, no S4 Gallop, no click, no other - Gastrointestinal General gastrointestinal: normal bowel sounds, soft - Integumentary Integumentary: decreased turgor, normal - Musculoskeletal Musculoskeletal: generalized weakness, strength equal bilaterally - Psychiatric Psychiatric: A&O x's 3, appropriate affect - Labs CBC & Chem 7: 03/12/17 07:40 03/12/17 07:40 Labs: Abnormal Lab Results - Last 24 Hours (Table) 03/11/17 03/12/17 03/12/17 Range/Units 11:25 07:15 07:40 RBC 3.56 L (4.30-5.90) m/uL Hgb 10.7 L (13.0-17.5) gm/dL Hct 34.8 L (39.0-53.0) % MCHC 30.8 L (31.0-37.0) g/dL PT (9.0-12.0) sec INR (<1.2) Chloride (98-107) mmol/L BUN (9-20) mg/dL Creatinine (0.66-1.25) mg/dL Glucose (74-99) mg/dL AST (17-59) U/L Alkaline Phosphatase (38-126) U/L Total Protein (6.3-8.2) g/dL Albumin (3.5-5.0) g/dL Urine pH 8.5 H (5.0-8.0) Urine Protein Trace H (Negative) Urine Blood Small H (Negative) Ur Leukocyte Esterase Small H (Negative) Urine RBC 27 H (0-5) /hpf Urine Bacteria Occasional H (None) /hpf Urine Mucus Rare H (None) /hpf Influenza Type A RNA Detected H (Not Detectd) 03/12/17 03/12/17 Range/Units 07:40 07:40 RBC (4.30-5.90) m/uL Hgb (13.0-17.5) gm/dL Hct (39.0-53.0) % MCHC (31.0-37.0) g/dL PT 18.9 H (9.0-12.0) sec INR 2.1 H (<1.2) Chloride 111 H (98-107) mmol/L BUN 35 H (9-20) mg/dL Creatinine 1.49 H (0.66-1.25) mg/dL Glucose 111 H (74-99) mg/dL AST 69 H (17-59) U/L Alkaline Phosphatase 154 H (38-126) U/L Total Protein 5.3 L (6.3-8.2) g/dL Albumin 2.3 L (3.5-5.0) g/dL Urine pH (5.0-8.0) Urine Protein (Negative) Urine Blood (Negative) Ur Leukocyte Esterase (Negative) Urine RBC (0-5) /hpf Urine Bacteria (None) /hpf Urine Mucus (None) /hpf Influenza Type A RNA (Not Detectd) Microbiology - Last 24 Hours (Table) 03/11/17 11:25 Urine Culture - Preliminary Urine,Clean Catch 03/07/17 14:59 Blood Culture - Preliminary Blood No Growth after 96 hours Assessment and Plan Plan: 1. Acute metabolic encephalopathy with underlying history of dementia, presenting with fever and dyspnea secondary to influenza a most likely present on admission although initial influenza testing was negative. 2. 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 3. Dysphagia oropharyngeal, present prior to admission for the past 4 weeks, consult will be made to GI, and speech recommended ground diet with aspiration precautions. Modified barium swallow today. EGD per GI. 4. History of post left sided colectomy 03/[address] 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 5. Chronic kidney disease stage II: Post renal transplant continue Imuran and immunosuppressive agent. 6. Chronic A. fib on long-term anticoagulation with an elevated INR noted, Coumadin would be titrated based on his requirements to keep a goal INR between 2-3 monitor for ongoing GI losses normally patient takes 2.5 mg Coumadin every day except 5 mg Monday 7. Hypercoagulopathy. Coumadin is on hold. 8. Hypertension. Continue diltiazem 60 mg daily at bedtime 9. Unspecified gout: patient is no longer on allopurinol 100 mg daily. 10. GERD: Continue Pepcid 20 mg daily resume medication. 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 Dementia: On Aricept 10 mg at bedtime 13. Mild anemia: Continue iron and multivitamin supplement. Iron levels will be done, including haptoglobin to evaluate hemolysis, Hemoccult blood stools 14. DVT prophylaxis: on Coumadin for long-term anticoagulation 15. GI prophylaxis: Pepcid. CODE STATUS: NO code. discharge plan: Home with [facility] Impression and plan of care have been directed as dictated by the signing physician. Belen Dodson nurse practitioner acting as scribe for signing physician.
--- NOTE | 2017-03-12 12:21 | P.NPCON ---
History of Present Illness - Reason for Consult Consult date: 03/12/17 acute renal failure - Chief Complaint Weakness - History of Present Illness Mr. Reddy is a 86-year-old gentleman coming to the hospital on 03/08/2017 with weakness. He was extremely dehydrated with decreased oral intake for the last 3-4 weeks. Considering CVL the differential diagnosis he had a CT of the head with IV contrast on the day of admission. 65 mL of contrast was used. He was also given 1 dose of Motrin at that time as well. 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 Baseline creatinine is 0.8-1.0 MG per DL. Follows with Dr. Macdonald as outpatient. Maintained on cyclosporine 50 mg twice a day and azathioprine 50 mg daily. He was diagnosed with influenza and on Tamiflu and Zosyn. He Shiley was given IV fluids but currently discontinued for the last 2 days. Weakness improved no nausea vomiting diarrhea. Apart from one dose of NSAID does not take NSAIDs at home. Review of Systems Constitutional: Reports as per HPI Past Medical History Past Medical History: Atrial Fibrillation, Cancer, CVA/TIA, Eye Disorder, Hyperlipidemia, Hypertension, Memory Impairment, Prostate Disorder, Renal Disease Additional Past Medical History / Comment(s): KIDNEY TRANSPLANT(1992), HX OF TIA X2 AND CVA (11/2014) WITH SOME APHASIA,, HX OF BLOOD IN THE STOOL, SKIN CA , PROSTATE CA., GOUT. PT BLIND LEFT EYE. History of Any Multi-Drug Resistant Organisms: None Reported Past Surgical History: Bowel Resection, Tonsillectomy Additional Past Surgical History / Comment(s): KIDNEY TRANSPLANT-1992, COLONOSCOPY, SEEDS IMPLANTED INTO PROSTATE FOR CANCER, SKIN CA REMOVED FROM BACK AND FACE, CATARACT SURG., COLONOSCOPY. Past Anesthesia/Blood Transfusion Reactions: No Reported Reaction Past Psychological History: No Psychological Hx Reported Smoking Status: Former smoker Past Alcohol Use History: None Reported Additional Past Alcohol Use History / Comment(s): SMOKED APPROX 13 YEARS , LESS THAN 1/2 PPD. Past Drug Use History: None Reported - Past Family History Son(s) Family Medical History: Cancer Additional Family Medical History / Comment(s): 2 SONS , ONE HAD LYMPHOMA, AND ONE HAD MULT. MYELOMA Brother(s) Family Medical History: Cancer Medications and Allergies Home Medications Medication Instructions Recorded Confirmed Type Ergocalciferol (Vitamin D2) 50,000 unit PO Q30D 12/22/14 03/07/17 History [Drisdol] Timolol 0.5% Ophth Soln [Timoptic 1 drop BOTH EYES DAILY 12/22/14 03/07/17 History 0.5% Ophth Soln] Warfarin Sodium [Warfarin Sodium] 5 mg PO MOWEFR 12/22/14 03/07/17 History azaTHIOprine [Imuran] 50 mg PO DAILY 02/26/15 03/07/17 History cycloSPORINE, MODIFIED [Neoral] 50 mg PO BID 02/26/15 03/07/17 History Diltiazem HCl 60 mg PO HS 03/08/15 03/07/17 History Calcitriol [Rocaltrol] 0.25 mcg PO DAILY 01/09/16 03/07/17 History Simvastatin [Zocor] 2.5 mg PO Q72H 06/22/16 03/07/17 History Warfarin [Coumadin] 2.5 mg PO SUTUTHSA 06/22/16 03/07/17 History Donepezil [Aricept] 10 mg PO HS 03/07/17 03/07/17 History Famotidine [Pepcid] 20 mg PO DAILY 03/07/17 03/07/17 History Allergies Allergy/AdvReac Type Severity Reaction Status Date / Time No Known Allergies Allergy Verified 03/07/17 14:35 Physical Exam Vitals: Vital Signs Temp Pulse Resp BP Pulse Ox 03/12/17 07:00 102.6 F H 120 H 18 120/67 93 L 03/11/17 23:00 97.8 F 85 16 103/58 94 L 03/11/17 19:54 100.5 F H 03/11/17 16:59 100.4 F H 03/11/17 15:50 102.3 F H 132 H 20 131/72 94 L 03/11/17 15:00 101.8 F H 132 H 20 131/72 94 L Intake and Output 03/11/17 03/12/17 03/12/17 22:59 06:59 14:59 Other: # Voids 2 4 Weight 82 kg Lying in bed no acute distress Lungs clear to auscultation S1 and S2 heard Abdomen soft bowel sounds present No Edema Results - Lab Results Most recent lab results Calcium 9.5 mg/dL (8.4-10.2) 03/12/17 07:40 Phosphorus 1.2 mg/dL (2.5-4.5) L* 03/07/17 14:59 Magnesium 2.0 mg/dL (1.6-2.3) 03/07/17 14:59 03/12/17 07:40 03/12/17 07:40 Assessment and Plan Assessment: Impression: #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 #2 CKD3 status post renal transplant. 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
--- NOTE | 2017-03-12 13:36 | US ---
EXAMINATION TYPE: US renal transplant w dop DATE OF EXAM: 03/12/2017 COMPARISON: NONE CLINICAL HISTORY: RENAL FAILURE. Renal failure, RLQ renal transplant, exam done portable. EXAM PERFORMED: Grayscale on [place] and Doppler duplex and Grayscale imaging of the transplan [place] kidney. EXAM MEASUREMENTS: [place] Right Kidney: 12.3 x 5.6 x 6.5cm [place] Left Kidney: 9.6 x 5.3 x 5.7cm Transplant Kidney: 11.9 x 6.1 x 5.1cm Location of transplanted kidney: right lower quadrant ANATOMY: [place] Right Kidney: multiple cysts with largest inferior pole = 2.0cm [place] Left Kidney: appears much smaller in size when compared to [place] right kidney, multiple cysts with largest superior pole = 1.9cm Transplant Kidney: multiple cysts with largest inferior pole = 2.5cm, 3.1 x 1.7cm cystic area medial mid pole, possible hydro vs. parapelvic cyst, superior pole limited by overlying bowel gas Bladder: moderately distended, appears wnl as seen Bilateral Jets seen: no IMPRESSION: 1. Multiple renal cysts. 2. Probable parapelvic cyst in the transplant kidney.
[2017-03-12] MEDS: DILTIAZEM ORAL 60 MG TAB PO SCH (20:29)
[2017-03-12] MEDS: DONEPEZIL 10 MG TAB PO SCH (20:29)
[2017-03-12] MEDS ORDERED: PIPERACILLIN-TAZOBACTAM 3.375 GM in DEXTROSE/WATER 1 50ML.BAG IVPB SCH (21:00)
--- NOTE | 2017-03-12 21:46 | P.PN ---
Subjective Progress Note Date: 03/12/17 This patient is a 86-year-old male admitted to hospital with episode of expressive aphasia and worsening dementia. He was evaluated in the emergency room and his NIH stroke scale was 1.0. He was not a candidate for TPA as his INR was 4.6. NIH score was 1.0. He was admitted to hospital for further evaluation. His computed tomography scan of the brain revealed a questionable hypoattenuation in the left frontal lobe. For this reason he was sent for MRI of the brain which revealed no evidence of acute stroke. These areas are felt to be old in nature and represent old infarctions. Patient has history of underlying dementia. He is to undergo a modified barium swallow study for further evaluation of dysphagia. We will await further recommendations from gastroenterology. Patient has a history of chronic atrial fibrillation. His Coumadin is currently on hold. His INR today is 3.2. He underwent a bone scan for evaluation of possible osteolytic lesion of the T3 spine. His bone scan came back negative. Patient otherwise seems to be pleasantly confused. He has been talking with family but oftentimes goes off tangent. The patient is complaining of food getting stuck in the throat. Gastroenterology is aware of this. His oral pharyngeal dysphagia has been evaluated by gastroenterology. His recent modified barium swallow study showed no evidence of aspiration. Patient does not require PEG tube placement at this time. He is being closely monitored for fever this evening. Patient underwent a repeat influenza A and B testing today which did come back positive for influenza A. He has been started on Tamiflu. His temperature still is quite elevated this evening at 103.1. Blood and urine cultures are pending. Chest x-ray was negative for any acute findings. We will continue to monitor his progress closely. Case was discussed with the patient's who was at bedside today. We will continue to follow him closely during this admission. Objective - Vital Signs Vital signs: Vital Signs Temp 103.1 F H 03/12/17 18:19 Pulse 118 H 03/12/17 15:00 Resp 22 03/12/17 15:00 BP 122/67 03/12/17 15:00 Pulse Ox 98 03/12/17 15:00 Intake & Output 03/12/17 03/12/17 03/13/17 06:59 18:59 06:59 Weight 82 kg Other: # Voids 4 2 - Exam Physical examination: PHYSICAL EXAMINATION: Patient is resting comfortably in bed. Patient is pleasantly confused. VITAL SIGNS: Blood pressure is [122/67]. Heart rate is [85]. Respiration is [22] . Temperature is [103.1]. HEENT: Head is atraumatic, neck is supple, there were no carotid bruits. CHEST: Lungs are clear to auscultation and percussion. CARDIAC: S1, S2 normal rate and rhythm. There is no murmur. ABDOMEN: Soft and nontender. Bowel sounds are present. EXTREMITIES: There is no pedal edema. Peripheral pulses are present. Neurological examination: Patient's neurological examination is unchanged from yesterday. - Labs CBC & Chem 7: 03/12/17 07:40 03/12/17 07:40 Labs: Abnormal Lab Results - Last 24 Hours (Table) 03/12/17 03/12/17 03/12/17 Range/Units 07:15 07:40 07:40 RBC 3.56 L (4.30-5.90) m/uL Hgb 10.7 L (13.0-17.5) gm/dL Hct 34.8 L (39.0-53.0) % MCHC 30.8 L (31.0-37.0) g/dL PT 18.9 H (9.0-12.0) sec INR 2.1 H (<1.2) Chloride (98-107) mmol/L BUN (9-20) mg/dL Creatinine (0.66-1.25) mg/dL Glucose (74-99) mg/dL AST (17-59) U/L Alkaline Phosphatase (38-126) U/L Total Protein (6.3-8.2) g/dL Albumin (3.5-5.0) g/dL Influenza Type A RNA Detected H (Not Detectd) 03/12/17 Range/Units 07:40 RBC (4.30-5.90) m/uL Hgb (13.0-17.5) gm/dL Hct (39.0-53.0) % MCHC (31.0-37.0) g/dL PT (9.0-12.0) sec INR (<1.2) Chloride 111 H (98-107) mmol/L BUN 35 H (9-20) mg/dL Creatinine 1.49 H (0.66-1.25) mg/dL Glucose 111 H (74-99) mg/dL AST 69 H (17-59) U/L Alkaline Phosphatase 154 H (38-126) U/L Total Protein 5.3 L (6.3-8.2) g/dL Albumin 2.3 L (3.5-5.0) g/dL Influenza Type A RNA (Not Detectd) Microbiology - Last 24 Hours (Table) 03/11/17 11:25 Urine Culture - Final Urine,Clean Catch 03/07/17 14:59 Blood Culture - Preliminary Blood No Growth after 120 hours 03/11/17 10:00 Blood Culture - Preliminary Blood No Growth after 24 hours Assessment and Plan (1) Acute ischemic left MCA stroke Current Visit: Yes Status: Acute Code(s): I63.512 - CEREB INFRC D/T UNSP OCCLS OR STENOS OF LEFT MID CEREB ART SNOMED Code(s): 076337830 (2) Acute encephalopathy Current Visit: Yes Status: Acute Code(s): G93.40 - ENCEPHALOPATHY, UNSPECIFIED SNOMED Code(s): 8692140 (3) Dementia Current Visit: Yes Status: Acute Code(s): F03.90 - UNSPECIFIED DEMENTIA WITHOUT BEHAVIORAL DISTURBANCE SNOMED Code(s): 38238566 (4) History of prostate cancer Current Visit: Yes Status: Acute Code(s): Z85.46 - PERSONAL HISTORY OF MALIGNANT NEOPLASM OF PROSTATE SNOMED Code(s): 076750503 (5) Fever Current Visit: Yes Status: Acute Code(s): R50.9 - FEVER, UNSPECIFIED SNOMED Code(s): 460115575 Plan: This patient is a 86-year-old right-handed white male who is being evaluated for altered mental status and encephalopathy. Patient tested positive today for influenza A. He has been started on Tamiflu. He continues to remain confused and disoriented and mildly encephalopathic. He does have fever this evening. Blood and urine cultures are pending. We will continue to follow his neurological status closely during this admission. His overall prognosis at this time remains guarded.
[2017-03-12] MEDS: OSELTAMIVIR 60 MG/10 ML ORAL SYRINGE PO SCH (23:11)
[2017-03-13] MEDS: SODIUM CHLORIDE 0.9% 1,000 ML IV SCH ×3 (00:48→15:13)
[2017-03-13 07:35] LABS: HCT 35.7 % (39.0-53.0); HGB 11.1 gm/dL (13.0-17.5); Hypochromasia Slight; MCH 29.9 pg (25.0-35.0); MCHC 31.2 g/dL (31.0-37.0); MCV 95.7 fL (80.0-100.0); Mean Platelet Volume 8.7; Platelet Count 346 k/uL (150-450); RBC 3.73 m/uL (4.30-5.90); RDW 14.4 % (11.5-15.5); WBC 5.6 k/uL (3.8-10.6)
[2017-03-13 07:51] LABS: Albumin 2.2 g/dL (3.5-5.0); Calcium 9.2 mg/dL (8.4-10.2); Potassium 3.8 mmol/L (3.5-5.1); Total Bilirubin 0.9 mg/dL (0.2-1.3); Total Protein 5.3 g/dL (6.3-8.2)
[2017-03-13 07:52] LABS: INR 1.8 (<1.2); Prothrombin Time 16.5 sec (9.0-12.0)
[2017-03-13] MEDS: azaTHIOprine 50 MG TAB PO SCH (08:09)
[2017-03-13] MEDS: HEPARIN SODIUM,PORCINE 5,000 UNIT/ML 1 ML VIAL SQ SCH ×3 (08:09→23:15)
[2017-03-13] MEDS: PIPERACILLIN-TAZOBACTAM 3.375 GM in DEXTROSE/WATER 1 50ML.BAG IVPB SCH ×3 (08:09→23:15)
[2017-03-13] MEDS: TIMOLOL 0.5% OPHTH DROPS 5 ML BTL BOTH EYES SCH (08:09)
[2017-03-13] MEDS: FAMOTIDINE 20 MG TAB PO SCH (08:09)
[2017-03-13] MEDS: CALCITRIOL 0.25 MCG CAP PO SCH (08:09)
[2017-03-13] MEDS: OSELTAMIVIR 60 MG/10 ML ORAL SYRINGE PO SCH ×2 (08:59→20:14)
[2017-03-13 10:57] VITALS: BMI 32.8
--- NOTE | 2017-03-13 15:08 | P.PN ---
Subjective Progress Note Date: 03/13/17 This is a pleasant 86-year-old gentleman patient of Dr. Banuelos. He has underlying history of CVA in 2015 with resultant speech problem mainly expressive aphasia, dementia, hypertension, CK D stage III, prostate cancer with seed implant, long-term anticoagulation secondary to chronic atrial fibrillation, GERD, admitted to the hospital secondary to weakness and mental status changes. According to the , patient was shaky, has shortness of breath with dyspnea and exertion, requiring his ER evaluation. According to the has had dysphagia for the past 4 weeks to both foods and liquids and pills, he was scheduled to have an EGD on March 22 by GI. Patient was subsequently seen in the emergency room and was noted to be febrile, temperature of 101.4, agent has had diarrhea for a few days watery, no dysuria, In the emergency room, double basic count of 5.9, hemoglobin 10.9, INR all 4.6 urinalysis is negative, influenza test is negative, chest x-ray shows interstitial lung disease without any acute cardiopulmonary processes, there is a metastatic disease skeletal structures noted in routine x-ray. Patient was seen by Dr. Arroyo neurology during ER presentation, NIH score of 1, not requiring any treatment of TPA as his INR is 4.6 and NIH score 1, CAT scan of the brain shows wedge-shaped hypoattenuation in the left frontal lobe suggesting subacute to chronic ischemia, evidence of old cerebellar infarct on the left side. 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 There is also suggestion off sclerotic foci in the upper thoracic spine T2 level suggesting possibility for she blastic metastasis. Bone scan was recommended, and vascular consultation was recommended by neurology. GI consult for the dysphagia. When patient was seen, patient is back to his mentation, speech seems clear, has confusion as noted to answers that are off tangent for most part he remains on track regarding to his responses. Patient currently is on IV Zosyn for suspected aspiration pneumonia however chest x-ray did not reveal any acute infiltrates him a CT of the chest high resolution to evaluate for pulmonary fibrosis as there is notation of interstitial lung disease noted., C. diff for diarrhea, blood cultures had been obtained, 03/09:patient has been seen by GI and patient may need EGD.EEG is mildly abnormal in a diffuse fashion due to slowing of the EEG background. It failed to reveal any focal, lateralizing or epileptiform abnormalities. MRI of the brain shows chronic small vessel ischemic changes and age-related atrophy. Bone scan does not show metabolically active osseous medistatic disease. CAT scan of the thorax shows new interstitial pulmonary infiltrates compared to last exam which was October 2016. No evidence of pulmonary mass. Moderate cardiomegaly. Heart is increased compared to last exam. No bronchial obstruction. No suspected aspiration pneumonia. Speech therapy has evaluated at the bedside and recommended ground diet with progression to regular diet as tolerated. Patient has been evaluated by PT and OT with recommendations for home. Social work has arranged [facility] home care.INR is 4.1, alkaline phosphatase 150.urine culture is finalized with no growth and blood culture showing no growth after 24 hours. Modified barium swallow for today. EGD hopefully tomorrow. 2/2: Patient is complaining that he feels like a pill stuck in the back of his throat in the center. Patient is refusing to take any water or apple sauce. Contacted GI with no plan for any intervention today. Patient will be transferred to [facility] floor. 2/3: patient had sudden onset this morning of chills but no documented fever. There is tachycardia. Urine, urine culture, blood culture and chest x-ray will be ordered. Patient has had no further complaints of the pill being stuck in his throat.his white count is normal. INR today 2.7. 2/4: Patient continued to run fever overnight and influenza testing this morning is positive for A and patient will be started on Tamiflu, renal dosing. Patient's renal function has worsened today with BUN of 35 and creatinine 1.49. Zosyn decreased to every 12 hours and nephrology consult added as patient has a transplant. Discussed in detail with the family and recommended his get Tamiflu prophylactically. chest x-ray shows mild cardiomegaly. 03/13: The patient and his family state that he is feeling much better. Temperature max was 103.1 yesterday at 1800. They're concerned that he has difficulty swallowing which has been ongoing problem. He is on a chopped diet. He is scheduled for EGD with Dr. Loja on March 23. INR today is 1.8 and he will be resumed on Coumadin at a lower dose of 3 mg daily. BUN 44 and creatinine 1.41. She was seen by nephrology yesterday with plan to check cyclosporine level and continue IV fluids. Renal ultrasound shows multiple renal cysts. 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 Discussed discharge planning with the patient and family and they're agreeable for [facility]. Objective - Vital Signs Vital signs: Vital Signs Temp 97.3 F L 03/13/17 07:00 Pulse 105 H 03/13/17 07:00 Resp 22 03/13/17 07:00 BP 135/78 03/13/17 07:00 Pulse Ox 97 03/13/17 07:00 Intake & Output 03/12/17 03/13/17 03/13/17 18:59 06:59 18:59 Intake Total 120 Balance 120 Weight 84 kg 84 kg Intake: Oral 120 Other: Voiding Method Urinal Diaper # Voids 2 2 1 # Bowel Movements 1 - Exam General appearance: cooperative, no acute distress, obese - EENT Eyes: anicteric sclerae, EOMI, PERRLA, dentition normal, normal appearance ENT: NA/AT, normal oropharynx - Neck Neck: normal ROM - Respiratory Respiratory: bilateral: CTA, negative: diminished, dullness - Cardiovascular Rhythm: regular Heart sounds: normal: S1, S2 Abnormal Heart Sounds: no systolic murmur, no diastolic murmur, no rub, no S3 Gallop, no S4 Gallop, no click, no other - Gastrointestinal General gastrointestinal: normal bowel sounds, soft - Integumentary Integumentary: decreased turgor, normal - Musculoskeletal Musculoskeletal: generalized weakness, strength equal bilaterally - Psychiatric Psychiatric: A&O x's 3, appropriate affect - Labs CBC & Chem 7: 03/13/17 06:57 03/13/17 06:57 Labs: Abnormal Lab Results - Last 24 Hours (Table) 03/13/17 03/13/17 03/13/17 Range/Units 06:57 06:57 06:57 RBC 3.73 L (4.30-5.90) m/uL Hgb 11.1 L (13.0-17.5) gm/dL Hct 35.7 L (39.0-53.0) % PT 16.5 H (9.0-12.0) sec INR 1.8 H (<1.2) Chloride 111 H (98-107) mmol/L BUN 44 H (9-20) mg/dL Creatinine 1.41 H (0.66-1.25) mg/dL Glucose 104 H (74-99) mg/dL AST 99 H (17-59) U/L Alkaline Phosphatase 146 H (38-126) U/L Total Protein 5.3 L (6.3-8.2) g/dL Albumin 2.2 L (3.5-5.0) g/dL Microbiology - Last 24 Hours (Table) 03/11/17 11:25 Urine Culture - Final Urine,Clean Catch 03/07/17 14:59 Blood Culture - Preliminary Blood No Growth after 120 hours 03/11/17 10:00 Blood Culture - Preliminary Blood No Growth after 24 hours Assessment and Plan Plan: 1. Acute metabolic encephalopathy with underlying history of dementia, presenting with fever and dyspnea secondary to influenza a most likely present on admission although initial influenza testing was negative. 2. 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 3. Dysphagia oropharyngeal, present prior to admission for the past 4 weeks, consult will be made to GI, and speech recommended ground diet with aspiration precautions. Modified barium swallow as above. EGD per GI scheduled for March 23. 4. History of post left sided colectomy 03/[address] 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 5. Acute kidney injury with chronic kidney disease stage II: Post renal transplant continue Imuran and immunosuppressive agent. 6. Chronic A. fib on long-term anticoagulation with an elevated INR noted, Coumadin would be titrated based on his requirements to keep a goal INR between 2-3 monitor for ongoing GI losses normally patient takes 2.5 mg Coumadin every day except 5 mg Monday 7. Hypercoagulopathy. Coumadin is on hold. 8. Hypertension. Continue diltiazem 60 mg daily at bedtime 9. Unspecified gout: patient is no longer on allopurinol 100 mg daily. 10. GERD: Continue Pepcid 20 mg daily resume medication. 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 Dementia: On Aricept 10 mg at bedtime 13. Mild anemia: Continue iron and multivitamin supplement. Iron levels will be done, including haptoglobin to evaluate hemolysis, Hemoccult blood stools 14. DVT prophylaxis: on Coumadin for long-term anticoagulation 15. GI prophylaxis: Pepcid. CODE STATUS: NO code. discharge plan: on Monday Impression and plan of care have been directed as dictated by the signing physician. Belen Dodson nurse practitioner acting as scribe for signing physician.
[2017-03-13 15:51] VITALS: RESP 20
[2017-03-13] MEDS ORDERED: WARFARIN 3 MG TAB PO SCH (18:00)
[2017-03-13] MEDS: PRAVASTATIN SODIUM 20 MG TAB PO SCH (20:14)
[2017-03-13] MEDS: DONEPEZIL 10 MG TAB PO SCH (20:14)
[2017-03-13] MEDS: DILTIAZEM ORAL 60 MG TAB PO SCH (20:15)
--- NOTE | 2017-03-13 22:47 | PN ---
PROGRESS NOTE Patient is seen for followup for acute kidney injury. He is currently positive for influenza A. His serum creatinine was 1.14 on initial admission. It is now at 1.4 mg/dL. Patient has been voiding in a diaper. Blood pressure has not been low. He is currently maintained on normal saline at 75 mL/hour. Patient denies any nausea or vomiting currently. PHYSICAL EXAMINATION: Blood pressure is 141/85, heart rate 102 per minute. He is afebrile. EXAMINATION OF THE HEART: S1, S2. EXAMINATION OF LUNGS: Bilateral breath sounds are heard. ABDOMEN: Soft, non-tender. Examination of lower extremities shows no significant edema. PATENT AGENT exam is grossly intact. Patient moving all 4 extremities. LABS: Sodium 145, potassium 3.8, chloride 111, BUN 44, serum creatinine 1.4, hemoglobin 11.1 g/dL. UA shows trace protein, small blood, WBCs 4, RBCs 27. ASSESSMENT: 1. Acute kidney injury secondary to underlying influenza infection as well as component of hypovolemia, currently maintained on normal saline, which we will continue. There is evidence of microscopic hematuria. A previous UA is not available for comparison. His UA will need to be repeated later on. 2. Influenza, type A, maintained on Tamiflu. 3. Status post renal transplant in 1992, currently maintained on Neoral and cyclosporine. Cyclosporine level will be ordered. 4. Prostatic cancer. 5. 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 6. Chronic atrial fibrillation, maintained on Coumadin, controlled ventricular response. 7. Chronic kidney disease mineral bone disorder, maintained on calcitriol. PLAN: Continue IV fluids. Encourage increased oral intake. Will follow up on the cyclosporine levels, which should be a trough level, and repeat labs in a.m. MMODL / IJN: [id number] /
--- NOTE | 2017-03-13 23:36 | P.PN ---
Subjective Progress Note Date: 03/13/17 This patient is a 86-year-old male admitted to hospital with episode of expressive aphasia and worsening dementia. He was evaluated in the emergency room and his NIH stroke scale was 1.0. He was not a candidate for TPA as his INR was 4.6. NIH score was 1.0. He was admitted to hospital for further evaluation. His computed tomography scan of the brain revealed a questionable hypoattenuation in the left frontal lobe. For this reason he was sent for MRI of the brain which revealed no evidence of acute stroke. These areas are felt to be old in nature and represent old infarctions. Patient has history of underlying dementia. He is to undergo a modified barium swallow study for further evaluation of dysphagia. We will await further recommendations from gastroenterology. Patient has a history of chronic atrial fibrillation. His Coumadin is currently on hold. His INR today is 3.2. He underwent a bone scan for evaluation of possible osteolytic lesion of the T3 spine. His bone scan came back negative. Patient otherwise seems to be pleasantly confused. He has been talking with family but oftentimes goes off tangent. The patient is complaining of food getting stuck in the throat. Gastroenterology is aware of this. His oral pharyngeal dysphagia has been evaluated by gastroenterology. His recent modified barium swallow study showed no evidence of aspiration. Patient does not require PEG tube placement at this time. He is being closely monitored for fever this evening. Patient underwent a repeat influenza A and B testing today which did come back positive for influenza A. He has been started on Tamiflu. His temperature still is quite elevated this evening at 103.1. Blood and urine cultures are pending. Chest x-ray was negative for any acute findings. We will continue to monitor his progress closely. Case was discussed with the patient's who was at bedside today. We will continue to follow him closely during this admission. Objective - Vital Signs Vital signs: Vital Signs Temp 98.0 F 03/13/17 15:00 Pulse 102 H 03/13/17 20:23 Resp 20 03/13/17 20:23 BP 141/85 03/13/17 15:00 Pulse Ox 98 03/13/17 15:00 Intake & Output 03/13/17 03/13/17 03/14/17 06:59 18:59 06:59 Intake Total 600 Balance 600 Weight 84 kg 84 kg Intake: Oral 600 Other: Voiding Method Urinal Toilet Diaper Urinal Diaper # Voids 2 1 # Bowel Movements 1 1 - Exam Physical examination: PHYSICAL EXAMINATION: Patient is resting comfortably in bed. Patient is pleasantly confused. VITAL SIGNS: Blood pressure is [141/85]. Heart rate is [102]. Respiration is [20 ]. Temperature is [98.0]. HEENT: Head is atraumatic, neck is supple, there were no carotid bruits. CHEST: Lungs are clear to auscultation and percussion. CARDIAC: S1, S2 normal rate and rhythm. There is no murmur. ABDOMEN: Soft and nontender. Bowel sounds are present. EXTREMITIES: There is no pedal edema. Peripheral pulses are present. Neurological examination: Patient's neurological examination is unchanged from yesterday. - Labs CBC & Chem 7: 03/13/17 06:57 03/13/17 06:57 Labs: Abnormal Lab Results - Last 24 Hours (Table) 03/13/17 03/13/17 03/13/17 Range/Units 06:57 06:57 06:57 RBC 3.73 L (4.30-5.90) m/uL Hgb 11.1 L (13.0-17.5) gm/dL Hct 35.7 L (39.0-53.0) % PT 16.5 H (9.0-12.0) sec INR 1.8 H (<1.2) Chloride 111 H (98-107) mmol/L BUN 44 H (9-20) mg/dL Creatinine 1.41 H (0.66-1.25) mg/dL Glucose 104 H (74-99) mg/dL AST 99 H (17-59) U/L Alkaline Phosphatase 146 H (38-126) U/L Total Protein 5.3 L (6.3-8.2) g/dL Albumin 2.2 L (3.5-5.0) g/dL Microbiology - Last 24 Hours (Table) 03/07/17 14:59 Blood Culture - Final Blood No Growth after 144 hours 03/11/17 10:00 Blood Culture - Preliminary Blood No Growth after 48 hours Assessment and Plan (1) Acute ischemic left MCA stroke Current Visit: Yes Status: Acute Code(s): I63.512 - CEREB INFRC D/T UNSP OCCLS OR STENOS OF LEFT MID CEREB ART SNOMED Code(s): 126674424 (2) Acute encephalopathy Current Visit: Yes Status: Acute Code(s): G93.40 - ENCEPHALOPATHY, UNSPECIFIED SNOMED Code(s): 6148074 (3) Dementia Current Visit: Yes Status: Acute Code(s): F03.90 - UNSPECIFIED DEMENTIA WITHOUT BEHAVIORAL DISTURBANCE SNOMED Code(s): 40379126 (4) History of prostate cancer Current Visit: Yes Status: Acute Code(s): Z85.46 - PERSONAL HISTORY OF MALIGNANT NEOPLASM OF PROSTATE SNOMED Code(s): 612451342 (5) Fever Current Visit: Yes Status: Acute Code(s): R50.9 - FEVER, UNSPECIFIED SNOMED Code(s): 147539680 Plan: This patient is a 86-year-old right-handed white male who is being evaluated for altered mental status and encephalopathy. Patient tested positive today for influenza A. He has been started on Tamiflu. He continues to remain confused and disoriented and mildly encephalopathic. He is afebrile today. Blood and urine cultures are pending. We will continue to follow his neurological status closely during this admission. His overall prognosis at this time remains guarded.
[2017-03-14] MEDS: SODIUM CHLORIDE 0.9% 1,000 ML IV SCH ×2 (00:47)
[2017-03-14 07:58] VITALS: BP 101/58; PULSE 93; TEMP 99.6
[2017-03-14] MEDS: PIPERACILLIN-TAZOBACTAM 3.375 GM in DEXTROSE/WATER 1 50ML.BAG IVPB SCH (08:27)
[2017-03-14] MEDS: HEPARIN SODIUM,PORCINE 5,000 UNIT/ML 1 ML VIAL SQ SCH (08:27)
[2017-03-14] MEDS: TIMOLOL 0.5% OPHTH DROPS 5 ML BTL BOTH EYES SCH (08:27)
[2017-03-14] MEDS: FAMOTIDINE 20 MG TAB PO SCH (08:28)
[2017-03-14] MEDS: CALCITRIOL 0.25 MCG CAP PO SCH (08:28)
[2017-03-14] MEDS: OSELTAMIVIR 60 MG/10 ML ORAL SYRINGE PO SCH (08:29)
[2017-03-14] MEDS: azaTHIOprine 50 MG TAB PO SCH (08:29)
[2017-03-14 08:47] LABS: Anion Gap 5 mmol/L; Blood Urea Nitrogen 34 mg/dL (9-20); Calcium 8.8 mg/dL (8.4-10.2); Carbon Dioxide 26 mmol/L (22-30); Chloride 113 mmol/L (98-107); Glucose 90 mg/dL (74-99); Potassium 4.4 mmol/L (3.5-5.1); Sodium 144 mmol/L (137-145)
--- NOTE | 2017-03-14 10:33 | P.DS ---
Providers Date of admission: 03/07/17 17:46 Expected date of discharge: 03/14/17 Attending physician: Joanne Hartman Consults: 03/07/17 17:45 Consult Physician Routine Consulting Provider: Efrain Pettit Consult Reason/Comments: dysphagia Do you want consulting provider notified?: Yes Consult Physician Routine Consulting Provider: Madeline Arroyo Consult Reason/Comments: ams Do you want consulting provider notified?: Yes 03/12/17 09:18 Consult Physician Routine Consulting Provider: Ronen Kennedy Consult Reason/Comments: [facility], transplant Do you want consulting provider notified?: Yes Primary care physician: [facility] Course: rogress Note Date: 03/13/17 This is a pleasant 86-year-old gentleman patient of Dr. Banuelos. He has underlying history of CVA in 2015 with resultant speech problem mainly expressive aphasia, dementia, hypertension, CK D stage III, prostate cancer with seed implant, long-term anticoagulation secondary to chronic atrial fibrillation, GERD, admitted to the hospital secondary to weakness and mental status changes. According to the , patient was shaky, has shortness of breath with dyspnea and exertion, requiring his ER evaluation. According to the has had dysphagia for the past 4 weeks to both foods and liquids and pills, he was scheduled to have an EGD on March 22 by GI. Patient was subsequently seen in the emergency room and was noted to be febrile, temperature of 101.4, agent has had diarrhea for a few days watery, no dysuria, In the emergency room, double basic count of 5.9, hemoglobin 10.9, INR all 4.6 urinalysis is negative, influenza test is negative, chest x-ray shows interstitial lung disease without any acute cardiopulmonary processes, there is a metastatic disease skeletal structures noted in routine x-ray. Patient was seen by Dr. Arroyo neurology during ER presentation, NIH score of 1, not requiring any treatment of TPA as his INR is 4.6 and NIH score 1, CAT scan of the brain shows wedge-shaped hypoattenuation in the left frontal lobe suggesting subacute to chronic ischemia, evidence of old cerebellar infarct on the left side. 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 There is also suggestion off sclerotic foci in the upper thoracic spine T2 level suggesting possibility for she blastic metastasis. Bone scan was recommended, and vascular consultation was recommended by neurology. GI consult for the dysphagia. When patient was seen, patient is back to his mentation, speech seems clear, has confusion as noted to answers that are off tangent for most part he remains on track regarding to his responses. Patient currently is on IV Zosyn for suspected aspiration pneumonia however chest x-ray did not reveal any acute infiltrates him a CT of the chest high resolution to evaluate for pulmonary fibrosis as there is notation of interstitial lung disease noted., C. diff for diarrhea, blood cultures had been obtained, 2:patient has been seen by GI and patient may need EGD.EEG is mildly abnormal in a diffuse fashion due to slowing of the EEG background. It failed to reveal any focal, lateralizing or epileptiform abnormalities. MRI of the brain shows chronic small vessel ischemic changes and age-related atrophy. Bone scan does not show metabolically active osseous medistatic disease. CAT scan of the thorax shows new interstitial pulmonary infiltrates compared to last exam which was October 2016. No evidence of pulmonary mass. Moderate cardiomegaly. Heart is increased compared to last exam. No bronchial obstruction. No suspected aspiration pneumonia. Speech therapy has evaluated at the bedside and recommended ground diet with progression to regular diet as tolerated. Patient has been evaluated by PT and OT with recommendations for home. Social work has arranged [facility] home care.INR is 4.1, alkaline phosphatase 150.urine culture is finalized with no growth and blood culture showing no growth after 24 hours. Modified barium swallow for today. EGD hopefully tomorrow. 2/2: Patient is complaining that he feels like a pill stuck in the back of his throat in the center. Patient is refusing to take any water or apple sauce. Contacted GI with no plan for any intervention today. Patient will be transferred to [facility] floor. 2/3: patient had sudden onset this morning of chills but no documented fever. There is tachycardia. Urine, urine culture, blood culture and chest x-ray will be ordered. Patient has had no further complaints of the pill being stuck in his throat.his white count is normal. INR today 2.7. 2/4: Patient continued to run fever overnight and influenza testing this morning is positive for A and patient will be started on Tamiflu, renal dosing. Patient's renal function has worsened today with BUN of 35 and creatinine 1.49. Zosyn decreased to every 12 hours and nephrology consult added as patient has a transplant. Discussed in detail with the family and recommended his get Tamiflu prophylactically. chest x-ray shows mild cardiomegaly. 03/13: The patient and his family state that he is feeling much better. Temperature max was 103.1 yesterday at 1800. They're concerned that he has difficulty swallowing which has been ongoing problem. He is on a chopped diet. He is scheduled for EGD with Dr. Loja on March 23. INR today is 1.8 and he will be resumed on Coumadin at a lower dose of 3 mg daily. BUN 44 and creatinine 1.41. She was seen by nephrology yesterday with plan to check cyclosporine level and continue IV fluids. Renal ultrasound shows multiple renal cysts. 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 Discussed discharge planning with the patient and family and they're agreeable for [facility]. 03/14: Repeat BUN 34 and creatinine 1.2. Patient has been resumed on Coumadin at lower dose of 3 mg. Patient has been a febrile for > 24 hours. Patient will be discharged to [facility] today in stable condition. Discharge diagnoses: 1. Acute metabolic encephalopathy with underlying history of dementia, presenting with fever and dyspnea secondary to influenza a most likely present on admission although initial influenza testing was negative. 2. 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 3. Dysphagia oropharyngeal 4. History of post left sided colectomy 03/[address] 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 5. Acute kidney injury with chronic kidney disease stage II: Post renal transplant 6. Chronic A. fib on long-term anticoagulation 7. Hypercoagulopathy 8. Hypertension 9. Unspecified gout 10. 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 Dementia 13. Mild anemia CODE STATUS: NO code. discharge plan: [facility] Under the care of Dr. Banuelos Impression and plan of care have been directed as dictated by the signing physician. Belen Dodson nurse practitioner acting as scribe for signing physician. Patient Condition at Discharge: Good Plan - Discharge Summary Discharge Rx Participant: Yes New Discharge Prescriptions: New Ipratropium-Albuterol Nebulize [Duoneb 0.5 mg-3 mg/3 ml Soln] 3 ml INHALATION RT-Q4H PRN ampul.neb PRN Reason: Shortness Of Breath Or Wheezing Oseltamivir 6Mg/ml Oral Susp [Tamiflu] 30 mg PO Q12HR #5 oral.syrg Warfarin [Coumadin] 3 mg PO DAILY@1800 tab Continue Ergocalciferol (Vitamin D2) [Drisdol] 50,000 unit PO Q30D Timolol 0.5% Ophth Soln [Timoptic 0.5% Ophth Soln] 1 drop BOTH EYES DAILY cycloSPORINE, MODIFIED [Neoral] 50 mg PO BID azaTHIOprine [Imuran] 50 mg PO DAILY Diltiazem HCl 60 mg PO HS Calcitriol [Rocaltrol] 0.25 mcg PO DAILY Simvastatin [Zocor] 2.5 mg PO Q72H Famotidine [Pepcid] 20 mg PO DAILY Donepezil [Aricept] 10 mg PO HS Discontinued Warfarin Sodium [Warfarin Sodium] 5 mg PO MOWEFR Warfarin [Coumadin] 2.5 mg PO SUTUTHSA Discharge Medication List Ergocalciferol (Vitamin D2) [Drisdol] 50,000 unit PO Q30D 12/22/14 [History] Timolol 0.5% Ophth Soln [Timoptic 0.5% Ophth Soln] 1 drop BOTH EYES DAILY [History] azaTHIOprine [Imuran] 50 mg PO DAILY 02/26/15 [History] cycloSPORINE, MODIFIED [Neoral] 50 mg PO BID 02/26/15 [History] Diltiazem HCl 60 mg PO HS 03/08/15 [History] Calcitriol [Rocaltrol] 0.25 mcg PO DAILY 01/09/16 [History] Simvastatin [Zocor] 2.5 mg PO Q72H 06/22/16 [History] Donepezil [Aricept] 10 mg PO HS 03/07/17 [History] Famotidine [Pepcid] 20 mg PO DAILY 03/07/17 [History] Ipratropium-Albuterol Nebulize [Duoneb 0.5 mg-3 mg/3 ml Soln] 3 ml INHALATION RT -Q4H PRN ampul.neb 03/14/17 [Rx] Oseltamivir 6Mg/ml Oral Susp [Tamiflu] 30 mg PO Q12HR #5 oral.syrg 03/14/17 [Rx] Warfarin [Coumadin] 3 mg PO DAILY@1800 tab 03/14/17 [Rx] Follow up Appointment(s)/Referral(s): Rich Banuelos MD [Primary Care Provider] - 1-2 days [facility], [NON-STAFF] - Patient Instructions/Handouts: Altered Mental Status (ED) Discharge Disposition: TRANSFER TO SNF/ECF
--- NOTE | 2017-03-14 22:48 | PN ---
PROGRESS NOTE The patient is seen for followup for acute kidney injury. He was admitted with influenza A, maintained on Tamiflu and currently significantly improved. Serum creatinine had gone up to 1.4. Patient was maintained on IV fluids. His creatinine is back down to 1.2 mg/dL. EXAMINATION: Blood pressure is 101/58, heart rate 93 per minute. He is afebrile. HEART: S1, S2. LUNGS: Bilateral breath sounds are heard. Abdomen is soft, nontender. Lower extremities show no significant edema. [employer] is grossly intact. LABS: Sodium 144, potassium 4.4, BUN 34, serum creatinine 1.2 mg/dL. ASSESSMENT: 1. Acute kidney injury, prerenal and secondary to influenza, currently improved. 2. Status post donor transplant at [facility]. Continue current immunosuppressive medications. 3. Influenza A, maintained on Tamiflu. 4. Encephalopathy on initial admission, currently improved. 5. Chronic atrial fibrillation maintained on anticoagulation. 6. Dysphagia, being followed by Gastroenterology. PLAN: Patient is stable for discharge. Follow up as outpatient. MMODL / LETIN: [id number] /
== END 2017-03-14 14:01 | DRG 193 ==
LOC: EC 14:12 → 6SEL 17:46 → 4MS4W 03-10 13:49
PROVIDERS: ADMIT Family Medicine; ATTEND Family Medicine
DX: J10.00 Influenza due to other identified influenza virus with unspecified type of pneumonia (principal); I63.9 Cerebral infarction, unspecified; G93.41 Metabolic encephalopathy; J84.9 Interstitial pulmonary disease, unspecified; N17.9 Acute kidney failure, unspecified; R47.01 Aphasia; E88.89 Other specified metabolic disorders; G93.89 Other specified disorders of brain; I48.2 Chronic atrial fibrillation; R13.12 Dysphagia, oropharyngeal phase; D63.1 Anemia in chronic kidney disease; E86.0 Dehydration; N28.1 Cyst of kidney, acquired; E86.1 Hypovolemia; E78.5 Hyperlipidemia, unspecified; F03.90 Unspecified dementia, unspecified severity, without behavioral disturbance, psychotic disturbance, mood disturbance, and anxiety; H54.62 Unqualified visual loss, left eye, normal vision right eye; I12.9 Hypertensive chronic kidney disease with stage 1 through stage 4 chronic kidney disease, or unspecified chronic kidney disease; I51.7 Cardiomegaly; I65.21 Occlusion and stenosis of right carotid artery; K21.9 Gastro-esophageal reflux disease without esophagitis; M10.9 Gout, unspecified; M89.9 Disorder of bone, unspecified; N18.2 Chronic kidney disease, stage 2 (mild); R31.29 Other microscopic hematuria; R19.7 Diarrhea, unspecified; R79.1 Abnormal coagulation profile; R53.1 Weakness; E66.9 Obesity, unspecified; Z68.32 Body mass index [BMI] 32.0-32.9, adult; Z94.0 Kidney transplant status; Z79.01 Long term (current) use of anticoagulants; Z79.899 Other long term (current) drug therapy; Z90.49 Acquired absence of other specified parts of digestive tract; Z87.891 Personal history of nicotine dependence; Z85.46 Personal history of malignant neoplasm of prostate; Z85.828 Personal history of other malignant neoplasm of skin; Z86.73 Personal history of transient ischemic attack (TIA), and cerebral infarction without residual deficits
CPT/HCPCS: 36415; 70450; 70496; 70498; 70553; 71046; 71250; 74230; 76776; 78306; 80048; 80053; 80158; 81001; 81003; 82105; 82140; 82272; 82378; 82550; 82553; 82728; 82803; 83010; 83540; 83550; 83605; 83735; 84100; 84153; 84484; 85025; 85027; 85610; 85730; 87040; 87086; 87324; 87502; 93005; 94760; 95819; 96361; 96365; 96375; 99285

== ENCOUNTER 2017-03-24 10:56 | Day surgery (SDC) | payer MEDICARE, BC ==
[2017-03-23 09:25] VITALS: BMI 33.8
[~2017-03-24 10:56] MED LIST: LACTATED RINGERS 1,000 ML IV SCH
[2017-03-24 11:41] VITALS: RESP 18; TEMP 98.6
[2017-03-24] MEDS ORDERED: LIDOCAINE 1% 20 ML VIAL (10MG/ML) FOR IV START INTRADERMA ONE (11:45)
[2017-03-24 12:06] LABS: INR 1.6 (<1.2); Prothrombin Time 14.6 sec (9.0-12.0)
[2017-03-24] MEDS ORDERED: PROPOFOL 10 MG/ML 20 ML VIAL IV ONE (12:40)
[2017-03-24] MEDS ORDERED: LIDOCAINE 1% INJ 10MG/ML (20 ML MDV) ONE (12:40)
--- NOTE | 2017-03-24 12:58 | P.PCN ---
Date of Procedure: 03/24/17 Procedure(s) Performed: BRIEF HISTORY: Patient is a 86-year-old, pleasant, white male, scheduled for an upper endoscopy as a part of evaluation of dysphagia for the last 3 months duration. He was admitted to the hospital with CVA in February of this year at which time he did have modified barium swallow done that did not show any evidence of aspiration. PROCEDURE PERFORMED: Esophagogastroduodenoscopy with dilation. PREOPERATIVE DIAGNOSIS: Dysphagia to solids of 3 months duration. IV sedation per anesthesia. PROCEDURE: After informed consent was obtained, the patient was brought into the endoscopy unit. IV sedation was administered by Anesthesia under continuous monitoring. Initially the Olympus GIF-140 video endoscope was inserted into the mouth. Esophagus intubated without any difficulty. It was gradually advanced into the stomach and duodenum and carefully examined. The bulb and the second part of the duodenum appeared normal. The scope at this time was withdrawn to the stomach, adequately insufflated with air, and upon careful examination, mucosa of the antrum, body, cardia and the fundus appeared normal. The scope was then withdrawn into the esophagus. The GE junction was located at 39 cm from the incisors. There was early distal esophageal stricture identified that was dilated using 10-12 mm TTS balloon for 60 seconds. The esophagus appeared normal. There were no erosions or ulcerations seen. The proximal cervical esophagus was carefully examined which appeared normal and the patient tolerated the procedure well. IMPRESSION: 1. Early distal esophageal stricture status post balloon dilation as described above. 2. Proximal cervical esophagus appeared normal. RECOMMENDATIONS: The findings of this examination were discussed with the patient as well as his family. He was advised to resume Coumadin today. He will advance diet as tolerated. If he still has persistent dysphagia despite esophageal dilation, most likely he may be having oropharyngeal dysphagia for recent CVA. This can be further investigated by repeating a modified barium swallow.
[2017-03-24 13:48] VITALS: BP 123/84; PULSE 90
== END 2017-03-24 14:03 | disposition home or self-care (01) ==
LOC: ORWHC2ENDO 10:56
PROVIDERS: ATTEND Internal Medicine Gastroenterology
DX: K22.2 Esophageal obstruction (principal); Z86.73 Personal history of transient ischemic attack (TIA), and cerebral infarction without residual deficits; I48.91 Unspecified atrial fibrillation; Z79.01 Long term (current) use of anticoagulants; I10 Essential (primary) hypertension; E78.5 Hyperlipidemia, unspecified; Z94.0 Kidney transplant status; R41.3 Other amnesia; K21.9 Gastro-esophageal reflux disease without esophagitis; J44.9 Chronic obstructive pulmonary disease, unspecified; Z79.899 Other long term (current) drug therapy
CPT/HCPCS: 85610; 43249; J2001; J2704; C1726